=== PATIENT | male | born 1950 | race Caucasian/White ===

== ENCOUNTER 2018-12-01 10:24 | Inpatient (IN) ==
[2018-12-01] MEDS ORDERED: ASPIRIN ONE (10:41)
[2018-12-01] MEDS ORDERED: LASIX ONE (10:43)
[2018-12-01] MEDS ORDERED: ASPIRIN PO ONE (11:06)
--- NOTE | 2018-12-01 11:21 | Diag Imaging Result Doc PS360 ---
EXAM: CHEST-1 VIEW HISTORY: chest pain TECHNIQUE: Portable chest single view COMPARISON: 09/27/2018 FINDINGS: The lungs are well expanded. The heart is enlarged. There are infiltrates in the mid and lower right lung with basilar atelectasis. There are small pleural effusions. IMPRESSION: Overall worsening in the right lung infiltrates. Electronically signed by Quincy Ward 12/01/2018 11:19 AM
[2018-12-01 11:28] LABS: BASO# 0.03 X1000 (0.0-0.2); BASO% 0.4 % (0.0-0.8); EOS# 0.04 X1000 (0.0-0.7); EOS% 0.5 % (0.0-10.0); HEMATOCRIT 33.8 % (42.0-52.0); IMM GRAN# 0.02 X1000 (0.0-0.04); IMM GRAN% 0.2 % (0.0-0.5); LYMPH# 0.56 X1000 (1.2-3.4); LYMPH% 6.5 % (20.5-51.1); MCH 29.9 PG (27-31); MCHC 32.5 g/dL (33-37); MCV 91.8 FL (81-99); MONO# 0.53 X1000 (0.11-0.59); MONO% 6.2 % (1.7-9.3); MPV 9.5 FL (7.4-10.4); NEUT# 7.39 X1000 (1.4-6.5); NEUT% 86.2 % (42.2-75.2); PLT 180 X1000 (130-400); RBC 3.68 XMIL (4.7-6.1); RDW 16.8 % (11.5-14.5); WBC 8.57 X1000 (4.8-10.8)
[2018-12-01] MEDS ORDERED: VANCOMYCIN 1 GM/NS 1 GM/250 ML IVPB IV ONE (11:35)
[2018-12-01 11:37] LABS: INR 1.42; PROTIME 18.5 Seconds (11.0-16.0)
[2018-12-01 11:38] LABS: PTT 36.8 Seconds (22.3-41.8)
[2018-12-01] MEDS: LEVOPHED 8 MG in D5 1/2 NS 250 ML IV SCH (11:40)
[2018-12-01 11:48] LABS: ALB/GLOB RATIO 1.1; ALBUMIN 3.4 g/dL (3.5-5.0); CALCIUM 8.6 mg/dL (8.8-10.2); CREATININE 2.4 mg/dL (0.7-1.2); POTASSIUM 4.8 mmol/L (3.5-5.1); TOTAL BILIRUBIN 4.3 mg/dL (0.20-1.00); TOTAL PROTEIN 6.4 g/dL (6.3-8.3)
[2018-12-01] MEDS ORDERED: PRIMACOR 20 MG/D5W 100 ML 20 MG/100 ML IVPB IV SCH (12:00)
[2018-12-01 12:21] LABS: ALLEN TEST YES; BE -0.5 mmoll (-3.0-3.0); BLOOD TYPE ARTERIAL; HCO3-(ACT) 24.5 mmoll (20.0-26.0); METHB 1.2 % (0.0-1.5); O2(CT) 14.8 mL/dL (15.0-23.0); O2HB 95.2 % (95.0-99.0); PCO2(98.6) 31 mmHg (35-45); PO2(98.6) 119 mmHg (60-100); SAMPLE BLOOD; SAO2 99.2 % (95.0-100.0); THB 10.9 g/dL (11.5-17.4); pH(98.6) 7.47 (7.35-7.45)
[2018-12-01 12:23] LABS: MODALITY BI PAP
--- NOTE | 2018-12-01 12:42 | EKG Report ---
Test Performed on : 12/01/2018 10:29:02 AM Test Reason : AFIB Blood Pressure : / mmHG Vent. Rate : 107 BPM Atrial Rate : 107 BPM P-R Int : 000 ms QRS Dur : 104 ms QT Int : 292 ms P-R-T Axes : 000 108 157 degrees QTc Int : 389 ms Atrial fibrillation. with rapid ventricular response. Incomplete right bundle branch block Possible Right ventricular hypertrophy ST elevation, consider inferior injury or acute infarct ACUTE AL / STEMI Consider right ventricular involvement in acute inferior infarct Abnormal ECG When compared with ECG of 27-SEP-2018 07:05, Atrial fibrillation. has replaced Sinus rhythm. Vent. rate has increased BY 48 BPM Nonspecific T wave abnormality, worse in Anterior leads QT has shortened Unconfirmed Result
--- NOTE | 2018-12-01 12:51 | PROVIDER DOCUMENTATION ---
This chart was entered by Dasha Norton Scribe, acting as scribe for Brien Erickson MD. HPI-Chest Pain - General Chief Complaint: Chest Pain Stated Complaint: CHEST PAIN,SOB Time Seen by Provider: 12/01/18 10:25 Source: patient, family () Unable to obtain history due to:: urgency Allergies/Adverse Reactions: Patient Allergies Allergy/AdvReac Type Severity Reaction Status Date / Time metoclopramide HCl * Allergy Mild headache, Verified 09/21/18 20:50 [From Reglan] dizzines, confusion Penicillins Allergy Mild SHORTNESS Verified 09/21/18 23:32 OF BREATH Sulfa (Sulfonamide Allergy Mild NAUSEA/VOMI Verified 09/21/18 20:50 Antibiotics) TING Tetanus Vaccines and Toxoid AdvReac Severe RASH Verified 09/21/18 20:50 levofloxacin [From Levaquin] AdvReac RASH Verified 09/21/18 20:50 propofol AdvReac doesn't Verified 09/21/18 20:50 like the feeling postop Home Medications: Home Medication List Medication Instructions Recorded Confirmed Last Taken Type Escitalopram Oxalate [Lexapro] 10 mg PO QPM 04/24/15 04/08/18 04/07/18 21:00 History 10 mg Hydralazine [Apresoline] 50 mg PO BID 04/24/15 09/21/18 04/07/18 21:00 History 50 mg Isosorbide Dinitrate 40 mg PO BID 04/24/15 04/08/18 04/07/18 21:00 History 40 mg Clopidogrel Bisulfate [Plavix] 75 mg PO DIRECTED 11/23/17 04/08/18 04/03/18 08:00 History 75 mg Aspirin 81 mg PO DAILY chewtab 12/21/17 09/21/18 04/08/18 08:00 Rx Carvedilol [Coreg] 12.5 mg PO BID 04/08/18 09/21/18 04/08/18 08:00 History 12.5 mg Omeprazole [Prilosec] 20 mg PO DAILY@0700 PRN 04/08/18 04/08/18 Unknown History Acetaminophen [Tylenol] 650 mg PO Q6H PRN PRN tablet 09/27/18 Unknown Rx Albuterol 2.5MG/Ipratrop 0.5MG 3 ml INH RTQ4H neb 09/27/18 Unknown Rx [Duoneb (A & A)] Calcium Carbonate Chew [Tums] 500 mg PO BID PRN PRN tab.chew 09/27/18 Unknown Rx Clindamycin [Cleocin] 450 mg PO Q6HR capsule 09/27/18 Unknown Rx Docusate Sodium [Colace] 100 mg PO BID capsule 09/27/18 Unknown Rx Enoxaparin [Lovenox] 40 mg SUBQ Q24H syringe 09/27/18 Unknown Rx Furosemide [Lasix] 40 mg IV Q12H vial 09/27/18 Unknown Rx Menthol/Zinc Oxide Ointment 1 applic TOP BID tube 09/27/18 Unknown Rx [Calmoseptine Ointment] - History of Present Illness-CP Nature of Presenting Problem: 68 yowm presents to the ed with c/o chest pain for 3 days. pt is known by cardiology well and saw dr villasenor last week. nikolai BURGOS with cardiology is at bedside and sts pt will need to be admitted. pt is ill appearaing and speaks in 2 word sentences Location: reports: substernal Quality of Pain: reports: fullness Severity in ED: moderate Onset/Duration: 3 days ago Timing: still present, intermittent Context/Activities at Onset: reports: light activity Modifying Factors: worse with: lying down, movement Associated Symptoms: reports: fatigue, shortness of breath Nitro Today/Relief: no nitro taken today Aspirin Treatment Today: 325 mg x 1, provided by ED Prior Chest Pain/Cardiac Workup: reports: other (is well known by cardiology) Similar Symptoms Previously?: Yes Recently Seen Here or By Another Healthcare Provider: Yes Review of Systems - Adult - REVIEW OF SYSTEMS - ADULT ROS:: limited per condition Constitutional: reports: weight gain (65lb weight gain since october 29). denies: chills, fever Eyes: reports: no symptoms reported Ears, Nose, Mouth & Throat: reports: no symptoms reported Cardiovascular: reports: see HPI, chest pain, edema, orthopnea. denies: syncope Respiratory: reports: see HPI, chronic cough, dyspnea on exertion, shortness of breath, wheezing Gastrointestinal: reports: see HPI. denies: abdominal pain, diarrhea, nausea, vomiting Genitourinary: reports: no symptoms reported Musculoskeletal: reports: no symptoms reported Integumentary: reports: see HPI, skin sores/ulcer Neurological: denies: dizziness/vertigo, headache/migraines, slurred speech, syncope, tremors Psychiatric: reports: no symptoms reported Endocrine: reports: no symptoms reported Hematologic/Lymphatic: reports: see HPI, easy bruising Allergic/Immunologic: reports: no symptoms reported All Other Systems: Reviewed and Negative Past History - Adult - PAST MEDICAL HISTORY-ADULT Review of Records: reports: Old Records Reviewed, Nursing Assessment Review, Medications Reviewed, Social history reviewed & non-contributory. Major Childhood Illnesses: reports: denies history Cardiovascular: reports: CAD, CHF, HTN, PR Respiratory: reports: COPD, pneumonia, sleep apnea Gastrointestinal: reports: denies history Genitourinary: reports: kidney disease Musculoskeletal: reports: chronic pain Hand Dominance: Right Handed Neurological: reports: denies history Psychiatric: reports: depression Endocrine/Immune: reports: denies history Other Conditions: reports: denies history - PRIOR SURGERIES/PROCEDURES Surgical/Procedure History: reports: hernia repair, joint replacement, other (naal sx) - IMMUNIZATION STATUS Childhood Immunizations: See Nurse Assessment Flu Vaccine: See Nurse Assessment - FAMILY HISTORY Family History: reviewed, not pertinent - SOCIAL HISTORY Smoking: quit greater than 1 year Substance Use: denies Living Situation: family Physical Exam-General - PHYSICAL EXAM-ADULT Initial Vital Signs Reviewed: Yes - CONSTITUTIONAL General Appearance: alert, severe distress, obese, anxious. negative: appears well - EYES Eyes: PERRL/EOMI - HEAD, EARS, NOSE, MOUTH & THROAT HENMT: moist mucous membranes, dental decay - NECK Neck: full range of motion, normal inspection - RESPIRATORY Respiratory: respiratory distress, wheezing, increased rate (26). negative: rales, rhonchi, stridor - CARDIOVASCULAR Cardiovascular: tachycardia, irregularly irregular - GASTROINTESTINAL (ABDOMEN) Abdominal Exam: soft, abnormal bowel sounds, distended - MUSCULOSKELETAL Back Exam: normal inspection Extremity: no calf tenderness, normal capillary refill, pelvis stable, erythema (abdomen and BLE), swelling (BLE edema), tenderness - SKIN Integumentary: warm/dry, erythema (abdomen and BLE), pallor - NEUROLOGIC Neurologic: grossly normal - PSYCHIATRIC Psych/Mental Status: normal thought content, normal thought process, oriented x 3, anxious - HEART Score HEART Score: History: Highly Suspicious HEART Score: ECG: Non-Specific Repolarization Disturbance/LBBB/PM HEART Score: Age: > or = 65 Years HEART Score: Risk Factors for Atherosclerotic Disease: 1 or 2 Risk Factors HEART Score: Troponin: > or = 3x Normal Limit Total HEART Score:: 8 Progress - PLAN OF CARE/RESULTS Progress/Plan/Lab Results: Vital Signs - 8 hr 12/01/18 11:51 12/01/18 12:22 Pulse Rate 127 H Respiratory Rate 20 Blood Pressure 105/56 O2 Sat by Pulse Oximetry 96 99 Laboratory Results - last 24 hr 12/01/18 12/01/18 12/01/18 10:54 10:54 10:54 WBC 8.57 RBC 3.68 L Hgb 11.0 L Hct 33.8 L MCV 91.8 MCH 29.9 MCHC 32.5 L RDW Std Deviation 16.8 H Plt Count 180 MPV 9.5 Immature Gran % (Auto) 0.2 Neut % (Auto) 86.2 H Lymph % (Auto) 6.5 L [place] % (Auto) 6.2 Eos % (Auto) 0.5 Baso % (Auto) 0.4 Immature Gran # (Auto) 0.02 Neut # (Auto) 7.39 H Lymph # (Auto) 0.56 L [place] # (Auto) 0.53 Eos # (Auto) 0.04 Baso # (Auto) 0.03 PT INR PTT (Actin FS) Specimen Type Sample Site pH pCO2 pO2 HCO3 Base Excess Oxyhemoglobin ABG O2 Sat (Calculated) ABG O2 Saturation ABG Carboxyhemoglobin ABG Methemoglobin Len Test A-a O2 Difference Total Hemoglobin Lactate Blood Gas Modality FiO2 % Inspiratory BiPAP Expiratory BiPAP Sodium 134 L Potassium 4.8 Chloride 96 L Carbon Dioxide 22 L Anion Gap 16 BUN 56 H Creatinine 2.4 H Estimated GFR/1.73 m2 27 BUN/Creatinine Ratio 23 Glucose 107 H Calculated Osmolality 284 Calcium 8.6 L Total Bilirubin 4.30 H AST 19 ALT 8 L Alkaline Phosphatase 200 H Creatine Kinase 59 Troponin T Vno-O-Grdxolsmfhy Pept 12147 H Total Protein 6.4 Albumin 3.4 L Globulin 3.0 Albumin/Globulin Ratio 1.1 12/01/18 12/01/18 12/01/18 10:54 10:54 12:13 WBC RBC Hgb Hct MCV MCH MCHC RDW Std Deviation Plt Count MPV Immature Gran % (Auto) Neut % (Auto) Lymph % (Auto) [place] % (Auto) Eos % (Auto) Baso % (Auto) Immature Gran # (Auto) Neut # (Auto) Lymph # (Auto) [place] # (Auto) Eos # (Auto) Baso # (Auto) PT 18.5 H INR 1.42 PTT (Actin FS) 36.8 Specimen Type ARTERIAL Sample Site R RADIAL pH 7.47 H pCO2 31 L pO2 119 H HCO3 24.5 Base Excess -0.5 Oxyhemoglobin 95.2 ABG O2 Sat (Calculated) 14.8 L ABG O2 Saturation 99.2 ABG Carboxyhemoglobin 2.90 H ABG Methemoglobin 1.2 Len Test YES A-a O2 Difference 127.0 Total Hemoglobin 10.9 L Lactate 1.70 Blood Gas Modality BI PAP FiO2 % 40.0 Inspiratory BiPAP 20.0 Expiratory BiPAP 6.0 Sodium Potassium Chloride Carbon Dioxide Anion Gap BUN Creatinine Estimated GFR/1.73 m2 BUN/Creatinine Ratio Glucose Calculated Osmolality Calcium Total Bilirubin AST ALT Alkaline Phosphatase Creatine Kinase Troponin T 0.208 H Vnp-K-Sdnbzzkpwnk Pept Total Protein Albumin Globulin Albumin/Globulin Ratio Orders Category Date Time Status Admit - [facility] Routine AdmDCTranf 12/01/18 12:32 Active Activity - Strict Bedrest ORDERED Care 12/01/18 12:32 Active Daily Weights 0500 Care 12/01/18 12:35 Active FSBS/Accucheck Result AC + HS Care 12/01/18 12:42 Active Dejesus Cath Insertion ORDERED Care 12/01/18 11:23 Active Intake and Output-Strict ORDERED Care 12/01/18 12:32 Active Intake and Output-Strict ORDERED Care 12/01/18 12:35 Active Nursing- MD Consult Request ROUTINE Care 12/01/18 11:06 Active Update & Confirm Home Medicati ROUTINE Care 12/01/18 12:43 Active Vital Signs Order Q 8-HR ASSESS Care 12/01/18 12:32 Active Z-Document. for Tele Applied ORDERED Care 12/01/18 12:32 Active MD [Physician/Provider Consults] Routine Cons 12/01/18 11:01 Ordered CHEST-1 VIEW [RAD] Stat Exams 12/01/18 11:03 Completed ABG [RESP] Routine Lab 12/01/18 12:13 Completed BASIC METABOLIC PANEL [CHEM] Routine Lab 12/02/18 06:00 Ordered BLOOD CULTURE [BLDCUL] Stat Lab 12/01/18 12:17 Results BNP [PRO B-NATRIURETIC PEPTIDE] Stat Lab 12/01/18 10:54 Completed CBC WITH DIFF [HEME] DAILY Lab 12/02/18 06:00 Ordered CBC WITH DIFF [HEME] DAILY Lab 12/03/18 06:00 Ordered CBC WITH DIFF [HEME] DAILY Lab 12/04/18 06:00 Ordered CBC WITH DIFF [HEME] Stat Lab 12/01/18 10:54 Completed CK PROFILE [SP CHEM] Stat Lab 12/01/18 10:54 Completed COMPREHENSIVE METABOLIC PANEL [CHEM] DAILY Lab 12/02/18 06:00 Ordered COMPREHENSIVE METABOLIC PANEL [CHEM] DAILY Lab 12/03/18 06:00 Ordered COMPREHENSIVE METABOLIC PANEL [CHEM] DAILY Lab 12/04/18 06:00 Ordered COMPREHENSIVE METABOLIC PANEL [CHEM] Stat Lab 12/01/18 10:54 Completed MAGNESIUM [CHEM] Routine Lab 12/02/18 06:00 Ordered PROTIME WITH INR [COAG] Stat Lab 12/01/18 10:54 Completed PTT [COAG] Stat Lab 12/01/18 10:54 Completed TROPONIN T Stat Lab 12/01/18 10:54 Completed Aspirin Med 12/01/18 10:41 Discontinued 325 mg .ROUTE .STK-MED ONE Aspirin Med 12/01/18 11:06 Discontinued 325 mg PO NOW ONE Dextrose 5%-0.45% NaCl Inj [D5 1/2 Ns] 250 ml Med 12/01/18 11:15 Active Norepinephrine [Levophed] 8 mg IV As Directed mls/hr Furosemide [Lasix] Med 12/01/18 10:43 Discontinued 100 mg .ROUTE .STK-MED ONE Furosemide [Lasix] Med 12/01/18 14:00 Active 60 mg IV Q12H Insulin Lispro [Humalog] Med 12/01/18 16:00 Active See Protocol SUBQ 0700,1100,1600,2100 Milrinone 20 mg/D5w [Primacor 20 mg/D5w 100 ml] Med 12/01/18 12:00 Active 20 mg in 100 ml IV As Directed mls/hr Pantoprazole [Protonix] Med 12/01/18 12:45 Active 40 mg IV Q12H Sodium Chloride 0.9% Med 12/01/18 12:45 Active 10 ml INJ DIRECTED Vancomycin 1 gm/Ns Med 12/01/18 11:35 Discontinued 1 gm in 250 ml IV NOW BIPAP Stat Oth 12/01/18 11:02 Active Telemetry [OM.EQ] Routine Oth 12/01/18 12:32 Active EKG [EKG] DAILY Ther 12/02/18 06:00 Ordered EKG [EKG] DAILY Ther 12/03/18 06:00 Ordered EKG [EKG] DAILY Ther 12/04/18 06:00 Ordered EKG [EKG] Stat Ther 12/01/18 10:25 Draft Result Diagrams: 12/01/18 10:54 12/01/18 10:54 - REASSESSMENT Reassessment #1 Time Reassessed: 11:15 (cardiology wants him to be admitted) Status: unchanged Reassessment #2 Time Reassessed: 11:49 Status: unchanged Reassessment Comment: dr at bedside - EKG 1 Time of EKG reading by physician:: 10:29 EKG Read and Signed by:: Brien Erickson EKG Interpretation (*Must complete 3 of following elements*): Abnormal Rate: 107 Rhythm: afib with rvr [place]: normal QRS: RBB (incomplete), other (possible right ventricular hypertrophy) TN Interval: normal ST Wave: non-specific ST changes Comments: per dr erickson no stemi or acute mi at this time 2 Time of EKG reading by physician:: 15:27 EKG Read and Signed by:: Brien Erickson EKG Interpretation (*Must complete 3 of following elements*): Abnormal Rate: 138 Rhythm: undetermined rhythm [place]: normal QRS: other (RVH with repolarization abnormality) ST Wave: elevated Prior EKG Comparison: changes noted Comments: acute PR/Stemi - XRAY 1 XRAY: Bilateral XRAY Study: Chest Impression: See EMR Report (EXAM: CHEST-1 VIEW HISTORY: chest pain TECHNIQUE: Portable chest single view COMPARISON: 09/27/2018 FINDINGS: The lungs are well expanded. The heart is enlarged. There are infiltrates in the mid and lower right lung with basilar atelectasis. There are small pleural effusions. IMPRESSION: Overall worsening in the right lung infiltrates. Electronically signed by Quincy Ward 12/01/2018 11:19 AM 12/01/18 1112 Interpreting Physician: Quincy Ward MD Dictated Date/Time: 12/01/18 1118 cc: Brien Erickson MD; Christiano Nguyen MD) - CONSULTS/PCP/HOSPITALIST Notification #1 *Consult/PCP/Hospitalist*: PA for cardiology at bedside Time Discussed: 11:18 Reason/Comments: will consult Consult Disposition: Will see in ED #2 Consult: hospitalist dr card Time Discussed: 11:48 Consult Disposition: Admit #3 Consult: speaking with nikolai AVERY with cardiology Time Discussed: 15:40 (put in a consult and we will see it on the floor per nikolai AVERY) Reason/Comments: phone cosult Departure - Departure Date of Disposition Decision: 12/01/18 Time of Disposition Decision: 11:44 DIAGNOSIS: NSTEMI (non-ST elevated myocardial infarction) Chest pain Qualifiers: Chest pain type: unspecified Qualified Code(s): R07.9 - Chest pain, unspecified CHF (congestive heart failure) Qualifiers: Heart failure type: other Qualified Code(s): I50.9 - Heart failure, unspecified A-fib Qualifiers: Atrial fibrillation type: unspecified Qualified Code(s): I48.91 - Unspecified atrial fibrillation Hypotension Qualifiers: Hypotension type: other hypotension type Qualified Code(s): I95.89 - Other hypotension Ascites Qualifiers: Ascites type: other type Qualified Code(s): R18.8 - Other ascites Disposition: ADMITTED INPATIENT 09 Certified Medical Emergency: Emergent Condition: Serious - Critical Care Note This patient required my direct & personal management of CC.: Yes Total Time (mins): 42 Critical Care Statement: This patient required my direct personal management to treat or rule out processes, the absence of which, could potentiallly result in sudden, clinically significant life or limb threatening deterioration. Attestation - Physician/ ADEN Attestation Patient care was provided by Advanced Practice Provider:: No The physician spent face to face time with patient:: Yes Advanced Practice Provider documentation review:: Supervising physician onsite and consulted in the evaluation and care of this patient. The physician did have a face to face encounter with the patient. This chart was documented by the indicated scribe, (Dasha Norton Scribe) and accurately reflects the services I performed and decisions made by me, Brien Erickson MD, as attested by the provider's signature.
[2018-12-01] MEDS: PROTONIX IV SCH (14:53)
--- NOTE | 2018-12-01 14:54 | CARDIOLOGY CONSULTATION ---
DATE: 12/01/2018 IMPRESSION: 1. Acute on chronic biventricular congestive heart failure with associated anasarca and significant ascites. 2. Mitral valve disorder with history of transcutaneous mitral valve procedure with placement of a mitral valve bioprosthesis with 29 mm MIGUEL S3 valve. 3. Atrial fibrillation has developed since last clinic visit and compounds congestive heart failure. 4. Ischemic cardiomyopathy with left ventricular ejection fraction 30% to 35% by transthoracic echocardiography, 10/20/2018. 5. Atherosclerotic coronary disease, previous mitral valve replacement with 29 mm pericardial valve in 2009. The patient has more recently had transcutaneous mitral valve replacement inside his previously placed mitral valve bioprosthesis with MIGUEL 29 mm valve, performed 10/19/2018. 6. Moderate aortic stenosis with trace aortic regurgitation. 7. Moderate pulmonary hypertension. 8. Obstructive sleep apnea. 9. Obesity. 10. Hypertension. 11. Diabetes mellitus, type 2. 12. Hyperlipidemia. 13. Acute on chronic kidney disease. 14. Cirrhosis. RECOMMENDATIONS: 1. Given low blood pressure, initiate intravenous pressors with Levophed and add milrinone for inotrope. 2. Diurese with intravenous Lasix. 3. Anticipate he will benefit from paracentesis. Eliquis to be held. 4. Atrial fibrillation, pending tendency for congestive heart failure. As patient improves, we will consider antiarrhythmic therapy after discussing his care with Dr. Fleming and consider DOYLE cardioversion at some point during his hospital stay. HISTORY: This 68-year-old white male with past history of biventricular heart failure, mitral valve disorder, ischemic cardiomyopathy, obstructive sleep apnea, obesity, chronic kidney disease, and atrial arrhythmias presented to the emergency room with progressive edema/anasarca and dyspnea in setting of failure of outpatient change in diuretic regimen to improve his recurrent congestive heart failure. He has a long and complicated cardiovascular history. He is status post mitral valve repair and replacement in 2009. He suffered acute [place] postoperatively with occluded right coronary artery. He had emergent stent to proximal right coronary artery. He has had ischemic cardiomyopathy. He has also had atrial arrhythmias and status post previous cardioversion of atrial flutter to sinus rhythm. He had deterioration of his mitral valve bioprosthesis and in October of this year, had transcutaneous mitral valve replacement inside his previously placed mitral valve bioprosthesis with a MIGUEL 29 mm valve. He also had cardioversion of atrial flutter not long thereafter. He also had angioplasty/stenting of distal left anterior descending coronary artery. He has moderate stenosis and trace aortic insufficiency as well. He also has moderate to severe pulmonary hypertension. He had rather intense and aggressive treatment of his congestive heart failure and has required paracentesis. He got out of the hospital in early October and was doing fairly well at that time. However, he has had progressive reemergence of weight gain with edema and increasing abdominal girth. He was seen a week ago in clinic with signs of re-emergence of significant congestive heart failure despite his current regimen. Diuretic therapy was altered in an effort to improve diuresis. He was in sinus rhythm at that time. Despite this, he has had further progression of edema and increasing abdominal girth as well as dyspnea prompting him to come in today. Blood pressure was low with systolic blood pressure 81. He manifest anasarca and marked jugular venous distention. He is now in atrial fibrillation. There has been no chest pain nor angina. He has been compliant with CPAP. PAST MEDICAL HISTORY: 1. Mitral valve disorder with previous mitral valve replacement in 2009 and later transcutaneous mitral valve replacement earlier this year. 2. Ischemic cardiomyopathy with left ventricular ejection fraction of 30% to 35%. 3. Chronic biventricular congestive heart failure, both systolic and diastolic. 4. Moderate to severe pulmonary hypertension. 5. Chronic obstructive pulmonary disease. 6. Obesity, morbid. 7. Obstructive sleep apnea. 8. Atrial arrhythmias. Patient is status post previous cardioversion of atrial flutter, 11/03/2018. 9. Atherosclerotic coronary disease with previous angioplasty/stenting of proximal right coronary artery and angioplasty/stenting of distal left anterior descending coronary artery. 10. Moderate aortic stenosis with trace aortic regurgitation. 11. Previous DVT and chronic venous insufficiency. 12. Hypertension. 13. Hyperlipidemia. 14. Type 2 diabetes mellitus. 15. Chronic kidney disease. 16. Cirrhosis. 17. Non-Hodgkin's lymphoma. 18. Depression. ALLERGIES: He is allergic or intolerant to metoclopramide and penicillins, among others. MEDICATIONS PRIOR TO ADMISSION: As listed. SOCIAL HISTORY: He is . He does not smoke. He does not use alcohol. FAMILY HISTORY: Positive for coronary disease, hypertension, and type 2 diabetes mellitus. REVIEW OF SYSTEMS: Pulmonary: Noteworthy for dyspnea. Gastrointestinal: Noteworthy for anorexia for the past 5 days or so. He has also had marked increase in abdominal girth. Constitutional: Noteworthy for significant weight gain since early October of at least 50 pounds. Remainder of the review of systems negative/noncontributory with 14 total systems reviewed. PHYSICAL EXAMINATION: General: This is an obese older white male, in no distress, on BiPAP. Vital signs: Blood pressure initially 81/60, heart rate 100-110 with ECG monitor showing atrial fibrillation. HEENT: Extraocular movements intact. Mucous membranes moist. Neck: Supple with marked jugular venous distention consistent with elevated central venous pressure. Chest: Auscultation of the chest reveals coarse breath sounds anteriorly. There are diminished breath sounds at the base, more so on the right base. Cardiac: Exam reveals an irregular rate and rhythm without appreciable murmur or gallop. Abdomen: Markedly distended with positive fluid wave. Extremities: Demonstrate 4+ edema, consistent with anasarca. Neurologic: Exam reveals him to be alert and fully oriented. Speech is fluent, and he moves all 4 extremities equally well. PERTINENT DATA: A 12-lead EKG demonstrates atrial fibrillation with ventricular response of 107 beats per minute, incomplete right bundle branch block, probable right ventricular hypertrophy, and nonspecific ST and T-wave abnormality. LABORATORY DATA: Includes a white blood cell count 8.57, hematocrit 33.8, hemoglobin 11.0, platelet count 180,000. Pro-time 18.5, INR 1.42, PTT 36.8. Sodium 134, potassium 4.8, chloride 96, carbon dioxide 22, BUN 56, creatinine 2.4, glucose 107, total bilirubin 4.3, AST 19, ALT 8, alkaline phosphatase 200. CPK 59, troponin T 0.2. Pro B-natriuretic peptide level 25,176. Albumin 3.4. cc: Santo Horton MD
[2018-12-01] MEDS: LASIX IV SCH (14:56)
[2018-12-01] MEDS: HUMALOG SUBQ SCH ×2 (16:00→20:33)
--- NOTE | 2018-12-01 18:42 | HISTORY AND PHYSICAL ---
CHIEF COMPLAINT: Shortness of breath. HISTORY OF PRESENT ILLNESS: This is a 68-year-old gentleman, with a history of biventricular heart failure, mitral valve disorder, ischemic cardiomyopathy, obstructive sleep apnea, morbid obesity, and chronic kidney disease, who presents to the emergency room with increasing edema/anasarca and shortness of breath, despite outpatient treatment. He has a history of CAD, having a stent to his right coronary artery, ischemic cardiomyopathy with an EF of 30 to 35 percent. He does have mitral valve disorder, having a mitral valve replacement in 2009, with later transcutaneous mitral valve replacement in early 2018. He does have a history of pulmonary hypertension. He has required paracentesis secondary to his congestive heart failure in the past. He was evaluated by Cardiology in early October. At that time, he had a 10 pound weight gain. Medications were readjusted and he was doing fairly well. A week ago, he was re-evaluated in Cardiology Clinic and found to have a 60 pound weight gain in 4 weeks. Medications were readjusted at that time. Despite that, he has had further progression of his dyspnea, prompting him to present to the emergency room. On arrival to the emergency room, he had a systolic blood pressure of 81. He was found to be in atrial fibrillation, which is a new diagnosis for him. He was evaluated by Dr. Horton in the emergency room as well as our service. PAST MEDICAL HISTORY: 1. Mitral valve disorder, undergoing mitral valve replacement in 2009, and transcutaneous mitral valve replacement in 2019. 2. Ischemic cardiomyopathy, with a left ventricular ejection fraction of 30 to 35 percent. 3. Chronic biventricular congestive heart failure. 4. Moderate to severe pulmonary hypertension. 5. Chronic obstructive pulmonary disease. 6. Obstructive sleep apnea. 7. Morbid obesity. 8. Atrial arrhythmias, atrial flutter, status post cardioversion on 11/03/2018. 9. Coronary artery disease, status post angioplasty and stenting of the right coronary and distal LAD. 10. Moderate aortic stenosis with trace aortic regurgitation. 11. Previous DVT with chronic venous insufficiency. 12. Hypertension. 13. Hyperlipidemia. 14. Diabetes mellitus type 2. 15. Chronic kidney disease stage 3 to 4. 16. Cirrhosis. 17. Non-Hodgkin's lymphoma. 18. History of intracoronary thrombus in 2010. PAST SURGICAL HISTORY: 1. Mitral valve replacement, 2009. 2. Transcutaneous mitral valve replacement, 2019. ALLERGIES: He is intolerant to Reglan and penicillin, sulfa, Levaquin, propofol, and tetanus. HOME MEDICATIONS: A list will be obtained by the nursing staff. Once verified, we will review and restart as appropriate. REVIEW OF SYSTEMS: Discussed with the patient with pertinent positives as stated in the History of Present Illness. He denied any syncope or dizziness, any chest pain, a productive cough, any nausea, vomiting, diarrhea, constipation, black or bloody vomitus or stools, any hematuria, dysuria, frequency, urgency. PHYSICAL EXAMINATION: GENERAL: This is a morbidly obese, 68-year-old gentleman who is sitting up in the bed on BiPAP. VITAL SIGNS: Blood pressure 105/56 with a heart rate of 127, respirations are 20, oxygen saturation is 96% on BiPAP at 40%. EYES: Pupils equal, round, and react to light. Extraocular movements are intact. Sclerae are anicteric. HEAD: Normocephalic, atraumatic. ENT: Mucous membranes are moist. NECK: Supple with JVD. CARDIAC: irregularly irregular rate and rhythm without appreciable murmur. He does have bilateral 4+ lower extremity edema. PULMONARY: Breath sounds are diminished throughout and coarse. At present, he has no increased work of breathing. Chest rises and falls symmetrically with respiration. GASTROINTESTINAL: Abdomen is distended, is large. He does have a positive fluid wave. NEUROLOGIC: He is alert and oriented x3. LABS: WBC is 8.5 with hemoglobin 11, hematocrit 33, and platelets of 180,000. Sodium is 134, potassium 4.8, BUN 56, creatinine 2.4, with a glucose of 121. Troponin is 0.208 with a proBNP of 25,176. ABGs: pH is 7.4 with pCO2 31, pO2 of 119, and bicarbonate of 24.5. Blood cultures are pending. Chest x-ray revealed increasing right lung infiltrates. ASSESSMENT: 1. Acute on chronic biventricular congestive heart failure. 2. Anasarca with significant ascites. 3. Atrial fibrillation, new onset. 4. Ischemic cardiomyopathy, with a left ventricular ejection fraction 30 to 35 percent on 10/20/2018. 5. Mitral valve disorder, with a history of transcutaneous mitral valve placement in 2019. 6. Coronary artery disease, status post stents to right coronary artery and left anterior descending. 7. Moderate aortic stenosis with trace aortic regurgitation. 8. Obstructive sleep apnea. 9. Moderate pulmonary hypertension. 10. Diabetes mellitus type 2. 11. Morbid obesity. 12. Acute on chronic kidney disease, stage 3 to 4. PLAN: 1. The patient will be admitted to ICU. 2. We will continue BiPAP as needed. 3. We will continue with diuresis with intravenous Lasix. 4. Cardiology has started Levophed and Milrinone. 5. We will hold his Eliquis as he will likely need a paracentesis. 6. We will check a CBC, CMP, magnesium, and phosphorus in the morning. 7. He will be placed on patterned blood glucose with sliding scale insulin. 8. We will consult Dr. Villela, Nephrology, for medical management. 9. Daily weights and strict inputs and outputs. 10. We will place a Dejesus catheter to assure accurate input/output. 11. Further treatments pending hospital course. Dictated by TATYANA Lynch for Jose D Paige MD This chart was documented by, TATYANA Lynch and accurately reflects the services performed, treatment plan and medical decisions as attested by the providers signature Jose D Paige MD. cc: TATYANA Lynch MD
[2018-12-02] MEDS: LASIX IV SCH ×3 (03:26→18:23)
[2018-12-02] MEDS: PROTONIX IV SCH ×2 (03:27→15:30)
[2018-12-02 06:59] LABS: BASO# 0.03 X1000 (0.0-0.2); BASO% 0.3 % (0.0-0.8); EOS# 0.19 X1000 (0.0-0.7); EOS% 1.9 % (0.0-10.0); HEMATOCRIT 32.8 % (42.0-52.0); HEMOGLOBIN 10.6 g/dL (14.0-18.0); IMM GRAN# 0.02 X1000 (0.0-0.04); IMM GRAN% 0.2 % (0.0-0.5); LYMPH# 0.27 X1000 (1.2-3.4); LYMPH% 2.7 % (20.5-51.1); MCH 29.7 PG (27-31); MCHC 32.3 g/dL (33-37); MCV 91.9 FL (81-99); MONO# 0.89 X1000 (0.11-0.59); MONO% 8.8 % (1.7-9.3); MPV 9.6 FL (7.4-10.4); NEUT% 86.1 % (42.2-75.2); PLT 190 X1000 (130-400); RBC 3.57 XMIL (4.7-6.1); RDW 16.7 % (11.5-14.5)
[2018-12-02] MEDS: HUMALOG SUBQ SCH ×4 (07:00→20:53)
[2018-12-02 07:23] LABS: LYMPHS 6 % (21-51); MONO 6 % (1-9); SEGS 88 % (42-75)
[2018-12-02 07:25] LABS: ALB/GLOB RATIO 1.1; ALBUMIN 3.1 g/dL (3.5-5.0); CALCIUM 8.5 mg/dL (8.8-10.2); CREATININE 2.2 mg/dL (0.7-1.2); MAGNESIUM 2.3 mg/dL (1.5-2.7); POTASSIUM 4.7 mmol/L (3.5-5.1); TOTAL BILIRUBIN 4.41 mg/dL (0.20-1.00); TOTAL PROTEIN 5.9 g/dL (6.3-8.3)
--- NOTE | 2018-12-02 07:32 | EKG Report ---
Test Performed on : 12/02/2018 06:53:21 AM Test Reason : afib Blood Pressure : / mmHG Vent. Rate : 112 BPM Atrial Rate : 112 BPM P-R Int : 000 ms QRS Dur : 096 ms QT Int : 324 ms P-R-T Axes : 000 105 143 degrees QTc Int : 442 ms Atrial fibrillation. with rapid ventricular response. with premature ventricular or aberrantly conduc mike complexes. Incomplete right bundle branch block Possible Right ventricular hypertrophy Nonspecific ST and T wave abnormality Abnormal ECG When compared with ECG of 02-DEC-2018 06:29, (Unconfirmed) Previous ECG has undetermined rhythm, needs review Confirmed by Shell LIVINGSTON, Matt ([id number]) on 12/02/2018 8:54:18 AM
--- NOTE | 2018-12-02 07:35 | EKG Report ---
Test Performed on : 12/02/2018 03:13:11 AM Test Reason : afib Blood Pressure : / mmHG Vent. Rate : 115 BPM Atrial Rate : 125 BPM P-R Int : 000 ms QRS Dur : 094 ms QT Int : 286 ms P-R-T Axes : 000 089 128 degrees QTc Int : 395 ms Atrial fibrillation. with rapid ventricular response. with premature ventricular or aberrantly conduc mike complexes. Low voltage QRS Incomplete right bundle branch block Nonspecific ST and T wave abnormality Abnormal ECG When compared with ECG of 01-DEC-2018 15:27, (Unconfirmed) Significant changes have occurred Unconfirmed Result
--- NOTE | 2018-12-02 08:52 | EKG Report ---
Test Performed on : 12/01/2018 3:27:13 PM Test Reason : ED. NO EKG ORDER FOR MUSE Blood Pressure : / mmHG Vent. Rate : 138 BPM Atrial Rate : 122 BPM P-R Int : 104 ms QRS Dur : 076 ms QT Int : 368 ms P-R-T Axes : 000 112 128 degrees QTc Int : 557 ms Undetermined rhythm Right ventricular hypertrophy with repolarization abnormality ST elevation, consider inferior injury or acute infarct ACUTE MD / STEMI Consider right ventricular involvement in acute inferior infarct Abnormal ECG When compared with ECG of 01-DEC-2018 10:29, (Unconfirmed) Current undetermined rhythm precludes rhythm comparison, needs review Incomplete right bundle branch block is no longer present Unconfirmed Result
--- NOTE | 2018-12-02 10:58 | PROGRESS NOTE ---
DATE: 12/02/2018 SUBJECTIVE: This morning Mr. Gilbert refers to be feeling slightly okay. He is still on the BiPAP. Breathing is getting better. Vitals seems to be a lot better. Blood pressure is now up on the pressors. OBJECTIVE: Vital Signs: Blood pressure is 104/61, pulse 87, respirations 22, and temperature 98 degrees. General: Mr. Gilbert is a 68-year-old morbidly obese male. He is in bed. He is still on the BiPAP. HEENT: Mucosa is pink and moist. Anicteric. Acyanotic. Neck: Supple. Chest: Air entry is bilaterally reduced. There are still some crackles posteriorly. Cardiovascular: Irregularly irregular. Abdomen: Distended with fluid thrill. Extremities: About 4+ pedal edema. There are some chronic changes on the skin consistent with congestive dermatopathy. Neurologic: The patient is awake, alert, and oriented. LABORATORY: Current lab work: WBC is 10.1, hemoglobin is 10.6, and platelet count 190,000. Chemistry is also reviewed. Creatinine is down to 2.2. The rest of chemistry is unremarkable. A chest x-ray done yesterday shows overall worsening in lung infiltrates. There are also small pleural effusions. CURRENT MEDICATIONS: All been reviewed. Patient is on Lasix 60 mg IV q.12. Insulin sliding scale. Norepinephrine and milrinone have just been discontinued this morning. ASSESSMENT: 1. Anasarca secondary to congestive heart failure. 2. Congestive heart failure with ejection fraction of 30% to 35%. 3. Severe ischemic cardiomyopathy. 4. Valvulopathy with mitral valve replacement. 5. Obesity hypoventilation syndrome associated with also obstructive sleep apnea. 6. Diabetes mellitus. We will continue with insulin regimen. 7. Acute on chronic renal failure. Creatinine continues to be on the downward trend. 2.2 seems to be fairly where he normally is. 8. Massive ascites likely due to cardiac cirrhosis. Patient has had multiple taps in the past. We will get IR to do a paracenteses and send fluid for analysis. cc: Jose D Paige MD MTDD
--- NOTE | 2018-12-02 12:43 | Diag Imaging Result Doc PS360 ---
EXAM: US ABD PARACENTESIS W S/I 12/02/2018 HISTORY: ascites TECHNIQUE: Ultrasound-guided paracentesis COMMENT: The risks and benefits of the procedure including the possibility of bleeding, infection, reaction to lidocaine, or inadvertent puncture of hollow viscus was discussed with the patient and he agreed to the procedure. Following sterile preparation of the skin anterolaterally in the lower right abdomen, and administration 1% lidocaine to the skin and deeper soft tissues, the paracentesis catheter was placed and subsequently 7.5 L of milky yellow fluid was drained. There are no immediate complications. The patient tolerated the procedure well. The fluid was sent in its entirety to the laboratory. IMPRESSION: Successful ultrasound-guided paracentesis. Electronically signed by Gilbert Carrillo 12/02/2018 12:40 PM
[2018-12-02 13:06] LABS: ALBUMIN BODY FLUID 1.3 g/dL; AMYLASE BODY FLUID 18 U/L; TOTAL PROT BODY FLUID 2.8 g/dL
[2018-12-02 13:49] LABS: BODY FLUID SOURCE PERITONEAL FLUID; MONOS 7 %; POLYS 93 %; WBC BF 8915 /cumm
[2018-12-02] MEDS ORDERED: ROCEPHIN 2 GM in NS 50 ML IV ONE (14:05)
[2018-12-02] MEDS: LEVOPHED 8 MG in D5 1/2 NS 250 ML IV SCH (14:25)
--- NOTE | 2018-12-02 15:27 | Diag Imaging Result Doc PS360 ---
CT ABDOMEN/PELVIS W/O CONTRAST - 12/02/2018 INDICATION: peritonitis COMPARISON: 04/21/2018 FINDINGS: There is severe cardiomegaly. There appears to be a mitral valve replacement. There are trace pleural effusions. There is some nonspecific dependent atelectasis or infiltrate bilaterally. The liver has a slightly irregular contour which may indicate cirrhosis. Spleen size is borderline measuring about 14 cm. There is severe body wall edema. No radiodense renal stones. No hydronephrosis or hydroureter. There is a minimal amount of residual ascites. There is mild rectal stool impaction. There are moderate degenerative changes of the spine. No acute or suspicious bony lesion. IMPRESSION: Probable cirrhosis. Splenomegaly. Severe body wall edema. Trace residual ascites. Mild rectal stool impaction. This exam was performed using automated exposure control, adjustment of mA or kV according to patient size, and/or use of iterative reconstruction technique Electronically signed by Duane Ty 12/02/2018 3:25 PM
[2018-12-02] MEDS: TYLENOL PO PRN (15:31)
--- NOTE | 2018-12-02 15:41 | NEPHROLOGY CONSULTATION ---
DATE: 12/02/2018 REASON FOR ADMISSION: Increased work of breathing. REASON FOR CONSULTATION: Acute kidney injury on chronic kidney disease stage IV associated with fluid volume overload. HISTORY OF PRESENT ILLNESS: Mr. Shelby is a 68-year-old white male, who is known to our services for recent hospitalizations with fluid volume overload. He is known to have chronic kidney disease stage IV. He is also known to have congestive heart failure. The patient is morbidly obese, presented to [facility] Emergency Department with increased edema, anasarca, and increased work of breathing. He states that he has been monitoring his fluid volume intake. He has been taking his Lasix as directed. He is known to have severe ischemic cardiomyopathy with a left ejection fraction of 30 to 35 percent, last documented. He has known pulmonary hypertension. He has required paracentesis secondary to congestive heart failure in the past. He was seen by Cardiology in early October. At that time, he was 10 pound weight gain, but had been doing fairly stable. Subsequently, he was seen a week ago and was re-evaluated and, at the cardiology clinic, he was found to be 60 pounds weight gain in 4 weeks. His medications were readjusted. He continued with progressive dyspnea, prompting him to come to the emergency department for further monitoring evaluation. Upon arrival, the patient was started on Levophed for blood pressure support. He was hypotensive. Difficulty treating with diuretics due to his hypotensive state. In the emergency room, his blood pressure was 80 systolic. He was found to be in atrial fibrillation, which is a new diagnosis. Dr. Horton had seen the patient and evaluated him at that time. PAST MEDICAL HISTORY: Chronic kidney disease stage IV. His baseline creatinine remains at 2.4 to 3. Mitral valve disorder undergoing mitral valve replacement 2009. Transcutaneous mitral valve replacement 2019. Ischemic cardiomyopathy with left ventricular ejection fraction of 30 to 35 percent in 2018. Chronic biventricular congestive heart failure, pulmonary hypertension, COPD, obstructive sleep apnea, morbid obesity, atrial arrhythmias in the past with post cardioversion on 11/03/2018, coronary artery disease status post angioplasty with stenting right coronary and distal LAD, moderate aortic stenosis with trace aortic regurg, previous history of DVT with chronic venous insufficiency, hypertension, hyperlipidemia, diabetes mellitus type 2, cirrhosis, non-Hodgkin's lymphoma, anemia of chronic disease, history of intracoronary thrombus in 2010. PAST SURGICAL HISTORY: Mitral valve replacement 2009, transcutaneous mitral valve replacement 2019. He has had bone marrow biopsies, septoplasty, right knee and shoulder surgery, abdominal hernia repair, multiple EGD's. FAMILY HISTORY: Negative for acute kidney injury or end-stage renal disease. SOCIAL HISTORY: The patient is . His mother lives with the family. He has family who are attentive to his care. Previous smoker. No alcohol or illicit drug use. ALLERGIES LISTED: Reglan, penicillin, sulfa, tetanus, Levaquin and propofol. MEDICATIONS: Have yet to be reconciled. Previous medications taken on our file: Acetaminophen, DuoNebs, Cordarone, aspirin, Coreg, Keflex, Plavix, daptomycin, Benadryl, Lasix, Apresoline, Atarax, Isordil, ketoconazole, Calmoseptine, Protonix and Aldactone. REVIEW OF SYSTEMS: The patient denies chest pain positive for increased work of breathing. He denies any nausea or vomiting. No diarrhea, though he has had a decrease in appetite. He continues to monitor his fluid volume intake with a fluid restriction. Denies any fever or chills. No hematochezia, hemoptysis or hematuria. Moderate changes to his lower extremity edema. Abdominal swelling. PHYSICAL EXAMINATION: The patient's most recent vital signs: Temperature of 97.9, blood pressure 102/63, heart rate 107, respirations are 14. He is on a Levophed drip. He is currently on BiPAP 40%; last recorded saturation is 98%. He has had 0 recorded in or out at the time the patient was seen. General: This is a 68-year-old white male. He appears chronically ill. He is in no acute distress. Skin: Warm and dry. HEENT: Normocephalic, atraumatic. Conjunctiva is pale pink. He has JEFF. Mucous membranes are dry. Neck: Supple. Trachea midline. Questionable JVD. Patient has BiPAP straps in place. Cardiovascular: Irregularly irregular rate and rhythm. He has PVCs that are frequent on the monitor. Lungs: Diminished breath sounds bilateral. Poor inspiratory effort with BiPAP support. Coarse breath sounds auscultated. Abdomen: Large, obese, soft, nontender. Positive bowel sounds. Genitourinary: The patient does have some scrotal swelling present. Dejesus catheter has to be placed. Extremities: Patient has 2+ to 3+ lower extremity edema. He has bilateral ecchymosis in different stages of healing, bruises to the upper and lower extremities. He has a dressing to his right lower extremity erythematous and, on inspection, warm to touch. Neurological: He is alert and oriented x3. LABS: Sodium is 139, potassium 4.7, chloride 100, CO2 20. BUN 61, creatinine 2.2, glucose is 112. He has an anion gap of 19, calcium 8.5, phosphorus 4.4, albumin 3.1, magnesium 2.3. White count 10.1, hemoglobin 10.6, hematocrit 32.8 with a platelet count of 190. The patient on admission had a PT of 18.5 and INR of 1.42, PTT 36.8. X-RAYS: The patient's chest x-ray on admission initially showed overall worsening in right lung infiltrate. ASSESSMENT AND PLAN: 1. Chronic kidney disease stage IV. The patient is at his historical baseline of 2.2 up to the 3 range. No indications for changes. We will monitor his intakes and outputs. 2. Fluid volume overload. Patient was treated with Lasix 60 mg. He is currently on Levophed for BP support. 3. Electrolytes and acid-base balance. These are currently stable. 4. Anemia. This is close to target. 5. Leukocytosis. The patient has received a dose of Rocephin and vancomycin this a.m. 6. Abdominal swelling with hypotension. Patient states that he is scheduled for paracentesis later today. I would like to thank you for allowing us to follow with this patient. Dictated by TATYANA Castro for Eyad Villela MD Face to face encounter, data reviewed, discussed with Reshma Triplett on 12/03/18. I agree with the above assessment and plan of care. cc: TATYANA Castro MD [facility]
[2018-12-02] MEDS: NEOSPORIN OINTMENT TUBE TOP SCH (16:48)
[2018-12-02] MEDS ORDERED: LANOXIN IV ONE ×2 (17:23→22:00)
[2018-12-02] MEDS ORDERED: LOPRESSOR IV PRN (18:12)
[2018-12-02] MEDS ORDERED: ALBUMIN 25% IV ONE (18:13)
[2018-12-02] MEDS: LOVENOX SUBQ SCH (18:24)
--- NOTE | 2018-12-02 18:39 | INFECTIOUS DISEASE CONSULT REP ---
DATE: 12/02/2018 I have been asked to see this patient regarding spontaneous bacterial peritonitis. I think he does indeed have spontaneous bacterial peritonitis. RECOMMENDATION: I agree with using Rocephin. Claforan is often used, but at the hospital here, Rocephin is substituted for Claforan. I would suggest treating the patient for at least 7 days with Rocephin, and I think the patient would benefit from prophylactic antibiotic medication. The one that is used often is Bactrim, but this patient has renal insufficiency, and therefore, I think Bactrim would be contraindicated. Possibly a drug such as Ceftin could be used. I think it is possible the patient could have a right-sided pneumonia. He already is on a good antibiotic, namely Rocephin, to treat it, and I have ordered a procalcitonin level. DISCUSSION: The patient says that his abdomen has been swelling for 3 weeks, for 2 weeks, he has had shortness of breath and constipation, and in the past 5 days, he has developed a punctate erythematous rash on the right leg. DIAGNOSTIC STUDIES: His studies thus far show a CBC with a white count of 10,100, hemoglobin 10.6, and platelet count 190,000. Creatinine is 2.2, GFR is 30, bilirubin is 4.41, alkaline phosphatase is 187. The patient had an abdominal paracentesis, and 7.5 L of fluid was pulled off. The white count on the ascitic fluid was 8915, of which 93% were polymorphonuclear cells. Blood cultures and ascites cultures are pending. CT scan of the abdomen and pelvis showed findings of cirrhosis and splenomegaly. The CT was taken after the paracentesis, and thus there was very little ascites left. Chest x-ray shows cardiomegaly with worsening right lung infiltrate. PAST MEDICAL HISTORY/REVIEW OF SYSTEMS: Eyes and ears: The patient denies trouble hearing or seeing. Neck: No stiffness. Respiratory: See present illness. Gastrointestinal: See present illness. Genitourinary: The patient does not have dysuria or flank pain. Neurologic: He has not been having any seizures. He has not recently had any loss of motor or sensory function. PREVIOUS HOSPITALIZATIONS AND OPERATIONS: Patient has had surgery on his right shoulder and on his right knee. He has had a hernia repair. He has had sinus surgery. He has had mitral valve replacement, and then he subsequently to that had a transcutaneous mitral valve replacement. MEDICAL DISEASES: Positive for obesity, hypertension, myocardial infarction, mitral valve disorder, ischemic cardiomyopathy, chronic biventricular congestive heart failure, moderate to severe pulmonary hypertension, chronic obstructive pulmonary disease, obstructive sleep apnea, morbid obesity, atrial arrhythmias including atrial flutter and atrial fibrillation, history of deep venous thrombosis, hyperlipidemia, diabetes mellitus, chronic kidney disease, cirrhosis of the liver, non-Hodgkin's lymphoma, and intracoronary thrombus. FAMILY HISTORY: Positive for diabetes mellitus, hypertension, myocardial infarction, and cancer. SOCIAL HISTORY: [place] He is . He is retired. He has dogs for pets. The patient does not currently smoke cigarettes, drink alcoholic beverages, or abuse drugs. ALLERGIES: He is allergic to penicillin, but he has had in the hospital here now Rocephin and at home Keflex and has tolerated them well. The patient also is allergic to Reglan, sulfa, Levaquin, propofol, and tetanus toxin. PHYSICAL EXAMINATION: Vital Signs: Temperature is 99.9 degrees, pulse 120, respirations 18, blood pressure 93/69. Weight: The patient weighs 285 pounds. General: This is an obese, elderly male. He is in no acute distress. Head, eyes, ears, nose, and throat: He can hear my spoken words and see near objects. There appears to be scleral icterus. Neck: No pain with movement. Lungs: There were bibasilar rales. Cardiovascular: Heart rate is irregular. Abdomen is soft, but tender. Extremities: The patient has bilateral leg edema. Also, there are punctate erythematous lesions on the patient's right leg. Neurologic: The patient is awake. He can move his extremities. There is no tremor. His sensation is intact to touch. His memory as regarding his medical history is reduced. Thank you for the consult the. cc: Cortez Helm MD
--- NOTE | 2018-12-02 18:54 | PROGRESS NOTE ---
DATE: 12/02/2018 SUBJECTIVE: Patient reports feeling much better, following paracentesis. 7.5 L was removed. He denies any shortness of breath or chest discomfort on supplemental oxygen per nasal cannula. He continues on intravenous Levophed for blood pressure support. Diuretic response to IV Lasix 60 mg has been very limited. OBJECTIVE: Vital Signs: Blood pressure 87/57. Heart rate 105 to 111 and irregular with ECG monitor showing atrial fibrillation. Neck: Jugular venous distention is present consistent with elevated central venous pressure. Chest: Clear to auscultation anteriorly with coarse breath sounds bilaterally. Cardiac Exam: Reveals an irregular rate and rhythm without appreciable murmur or gallop. Abdomen: Soft. Bowel sounds audible. Extremities: Demonstrate moderate edema, more so in the distal left lower extremity. LABORATORY DATA: Includes a white blood cell count of 10.1, hematocrit 32.8, hemoglobin 10.6, platelet count 190. Sodium 139, potassium 4.7, chloride 100, carbon dioxide 20, BUN 61, creatinine 2.2, glucose 112. Bilirubin 4.4, AST 20, ALT 8. Albumin 3.1. IMPRESSION: 1. 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 2. Mitral valve disorder with previous mitral valve replacement and later/more recent transmitral valve replacement. 3. Atrial fibrillation. Has developed since last clinic visit. 4. Ischemic cardiomyopathy with left ejection fraction of 30-35%. 5. Atherosclerotic coronary disease. 6. Moderate aortic stenosis with trace aortic regurgitation. 7. Moderate pulmonary hypertension. 8. Obstructive sleep apnea. 9. Obesity. 10. Hypertension. 11. Type 2 diabetes mellitus. 12. Hyperlipidemia. 13. Acute on chronic kidney disease. Suspect possible cardiorenal component. 14. Cirrhosis. RECOMMENDATIONS: 1. Continue pressor support for blood pressure. 2. Increase IV Lasix to try to find dose that gives good diuretic response. 3. Transiently we will use digoxin for rate control cautiously and monitor levels. 4. Resume beta-ajay when blood pressure permits. 5. Atrial fibrillation likely aggravating tendency for congestive heart failure in setting of ischemic cardiomyopathy, mitral valve disorder, and pulmonary hypertension. There may not be an ideal antiarrhythmic drug for him. May give some consideration to amiodarone. For now, continue rate control and anticoagulation. cc: Santo Horton MD
[2018-12-03] MEDS: PROTONIX IV SCH ×2 (00:17→14:10)
[2018-12-03] MEDS: SODIUM CHLORIDE 0.9% INJ SCH (00:17)
[2018-12-03] MEDS: LEVOPHED 8 MG in D5 1/2 NS 250 ML IV SCH (03:48)
[2018-12-03] MEDS: TYLENOL PO PRN ×2 (03:48→20:37)
[2018-12-03] MEDS: LASIX IV SCH ×2 (04:40→17:34)
[2018-12-03 05:25] LABS: BASO# 0.02 X1000 (0.0-0.2); BASO% 0.2 % (0.0-0.8); EOS# 0.36 X1000 (0.0-0.7); HEMATOCRIT 31.4 % (42.0-52.0); HEMOGLOBIN 10.5 g/dL (14.0-18.0); IMM GRAN# 0.02 X1000 (0.0-0.04); IMM GRAN% 0.2 % (0.0-0.5); LYMPH# 0.47 X1000 (1.2-3.4); LYMPH% 5.3 % (20.5-51.1); MCH 30.1 PG (27-31); MCHC 33.4 g/dL (33-37); MONO# 0.73 X1000 (0.11-0.59); MONO% 8.2 % (1.7-9.3); MPV 9.7 FL (7.4-10.4); NEUT# 7.35 X1000 (1.4-6.5); NEUT% 82.1 % (42.2-75.2); PLT 175 X1000 (130-400); RBC 3.49 XMIL (4.7-6.1); RDW 16.2 % (11.5-14.5); WBC 8.95 X1000 (4.8-10.8)
[2018-12-03] MEDS: HUMALOG SUBQ SCH ×4 (06:04→21:17)
[2018-12-03 06:19] LABS: ALB/GLOB RATIO 0.8; ALBUMIN 2.7 g/dL (3.5-5.0); CALCIUM 8.1 mg/dL (8.8-10.2); CREATININE 2.2 mg/dL (0.7-1.2); MAGNESIUM 2.2 mg/dL (1.5-2.7); PHOSPHORUS 4.4 mg/dL (2.7-4.5); POTASSIUM 3.5 mmol/L (3.5-5.1); TOTAL BILIRUBIN 2.66 mg/dL (0.20-1.00); TOTAL PROTEIN 5.9 g/dL (6.3-8.3)
--- NOTE | 2018-12-03 07:31 | EKG Report ---
Test Performed on : 12/03/2018 06:55:42 AM Test Reason : afib Blood Pressure : / mmHG Vent. Rate : 095 BPM Atrial Rate : 029 BPM P-R Int : 000 ms QRS Dur : 102 ms QT Int : 386 ms P-R-T Axes : 000 104 142 degrees QTc Int : 485 ms Undetermined rhythm Incomplete right bundle branch block Possible Right ventricular hypertrophy Nonspecific ST and T wave abnormality Abnormal ECG When compared with ECG of 02-DEC-2018 06:53, Current undetermined rhythm precludes rhythm comparison, needs review Confirmed by Shell LIVINGSTON, Matt ([id number]) on 12/03/2018 1:04:20 PM
[2018-12-03] MEDS: NEOSPORIN OINTMENT TUBE TOP SCH (08:30)
[2018-12-03] MEDS: LANOXIN IV SCH (08:30)
[2018-12-03] MEDS: ROCEPHIN 2 GM in NS 50 ML IV SCH (08:31)
[2018-12-03] MEDS ORDERED: TUMS PO ONE (10:48)
--- NOTE | 2018-12-03 13:56 | INFECTIOUS DISEASE PROGRESS NO ---
DATE: 12/03/2018 PRESENT ILLNESS: The patient has spontaneous bacterial peritonitis. The patient also may have a pneumonia. MEDICATIONS: The patient is receiving Rocephin. This is day 1 of treatment with that agent. PHYSICAL EXAMINATION: Vital Signs: Temperature is 99 degrees, pulse 92, respirations 14, blood pressure 110/63. General: This is an ill-appearing elderly male. He is in no acute distress. Head/eyes/ears/nose/throat: He can hear my spoken words and see near objects. He appears to have scleral icterus. There are no white patches on his tongue. Neck: No pain with movement. Lungs: Clear to auscultation. Cardiovascular: Heart rate is irregular. Abdomen: Soft and slightly tender but it is much less protuberant than it was prior to the drawing off of ascites from the abdomen by the radiologist. Neurologic: Patient is alert. He can move his extremities. There is no tremor. LAB AND X-RAY: CBC shows a white count of 8950, hemoglobin 10.5, and platelet count 175,000. Creatinine is 2.2. GFR is 30. Thus far, the ascitic fluid and blood are sterile. Ascites AFB smear was negative. ASSESSMENT AND PLAN: I think the patient does indeed have spontaneous bacterial peritonitis. I would suggest continuing with Rocephin for 7 to 10 days and then consider putting him on prophylactic antibiotics, namely Ceftin 500 mg p.o. daily. The patient may have a pneumonia as well. The Rocephin that the patient is on should be good coverage for pneumonia also. Plan to continue Rocephin for 7 to 10 days. Plan to repeat his chest x-ray to see if his pneumonia is clearing. I think the patient would be entitled to be put on an antibiotic prophylactically because of his spontaneous bacterial peritonitis. Usually the antibiotic chosen is Bactrim, but because of the patient's age and renal function, I do not think we should use it and possibly the best medication for him would be Ceftin 500 mg p.o. daily. COMORBIDITIES: He is elderly. He has diabetes mellitus and cirrhosis of the liver along with lymphoma. The patient also has chronic kidney disease and finally, the patient also has hyperlipidemia. cc: Cortez Helm MD
--- NOTE | 2018-12-03 15:30 | PROGRESS NOTE ---
DATE: 12/03/2018 SUBJECTIVE: This morning, Mr. Shelby refers to be feeling a lot better. He got 7.5 L removed from his abdomen yesterday. Fluid analysis is consistent with SBP and the patient was started on antibiotics. Gastroenterology has been consulted to see him as well. The patient was seen by Infectious Disease. OBJECTIVE: Vital signs: Blood pressure is 118/71, pulse is 92, respirations 22, temperature is 98.4 degrees. The patient is saturating about 93% to 97% on 2 L. General: Mr. Shelby is a 68-year-old morbidly obese, male. He is in bed. No distress. HEENT: Mucosa is pink and moist. Anicteric. Acyanotic. Neck: Supple. He has a BMI of 41.5. Chest: Good air entry bilateral. There are a few crackles in the posterior lung harden. Cardiovascular: Irregularly irregular but rate controlled. Abdomen: Soft, is distended. There is some mild tenderness on palpation in general abdomen. No rebound. There is no hepatosplenomegaly. There is positive fluid thrill. Extremities: About 3+ pedal edema. There are also some chronic skin changes in the lower extremities consistent with congestive dermatopathy. Neurologic: The patient is awake, alert, and oriented. LABORATORY DATA: WBC is 8.95, hemoglobin is 10.5, platelet count of 172,500. Chemistry is also reviewed. Creatinine is 2.2, total bilirubin is 2.66. The patient's fluid analysis from yesterday has been reviewed. His SAG is more than 1.1 which is consistent with portal hypertension physiology. He also has a white cell count of 8915, predominantly neutrophilic. ASSESSMENT: 1. Anasarca secondary to congestive heart failure. The patient continues to be on diuretic therapy. He is currently he is making adequate urine, 3400 urine output for negative balance of 2256. 2. Congestive heart failure with ejection fraction of 30% to 35% in exacerbation. 3. Severe ischemic cardiomyopathy. We will continue with his home medications. 4. Severe mitral valvulopathy. The patient is status post mitral valve replacement. 5. Obesity hypoventilation syndrome with obstructive sleep apnea. 6. Massive ascites secondary to cardiac cirrhosis complicated with SBP. This is has been tapped, 7.5 L has been drained. Fluid analysis is consistent with SBP. The patient has been started on IV antibiotics. Now his bilirubin is also high as well as his creatinine, so I think an argument can be made for prophylactic antibiotic even after the acute treatment. Either Bactrim or norfloxacin is the medication of choice that can be used. We will address that after the current treatment. 7. Cardiogenic shock, improved. The patient is now off the Milrinone and Levophed is on downward titration. Blood pressures have been fairly stable. cc: Jose D Paige MD
--- NOTE | 2018-12-03 16:10 | NEPHROLOGY PROGRESS NOTE ---
DATE: 12/03/2018 SUBJECTIVE: He states he is feeling better today. He has been able to eat. Good urine output. Shortness of breath is minimal. OBJECTIVE: Vital Signs: Blood pressure 97/65, heart rate 98, respiration 18, afebrile. Intake 1.3 L; output 3.4 L. General: On physical examination, no acute distress. Skin: Warm and dry with multiple ecchymoses. Eyes: Conjunctivae are pink. Neck: Neck veins are distended. Heart: Irregular with frequent ectopy as well. Lungs: Have equal breath sounds. No crackles or wheezes anteriorly. Abdomen: Soft, distended. Bowel sounds present. Extremities: Have 2+ edema. No clubbing or cyanosis. IMPRESSION: Cardiorenal syndrome. Elevated BUN to creatinine ratio. Baseline creatinine is approximately 2 over the last year. He has had multiple readmissions secondary to decompensated cardiorenal syndrome. He is currently improving with diuretic therapy and intravenous diuretics. We will continue this care. No other intervention at this time. cc: Eyad Villela MD
--- NOTE | 2018-12-03 16:18 | PROGRESS NOTE ---
DATE: 12/03/2018 SUBJECTIVE: The patient denies chest discomfort or dyspnea on supplemental oxygen per nasal cannula. Diuresis appears to have been established with intravenous Lasix. OBJECTIVE: Vital Signs: Blood pressure 118/71, heart rate 92 and irregular with ECG monitor showing atrial fibrillation, oxygen saturation 93%-97% on nasal cannula oxygen at 2 L/minute. Neck: Jugular venous distention is present consistent with significantly elevated central venous pressure. Chest: Clear to auscultation anteriorly. Cardiac: Reveals an irregular rate and rhythm without appreciable gallop. Abdomen: Soft and nontender. Extremities: Demonstrate moderate edema more so in the distal left lower extremity. LABORATORY DATA: Includes white blood cell count 8.95, hematocrit 31.4, hemoglobin 10.5, platelet count 175,000. Sodium 134, potassium 3.5, chloride 98, carbon dioxide 23, BUN 61, creatinine 2.2, glucose 122, albumin 2.7, bilirubin 2.66. IMPRESSION: 1. Acute on chronic biventricular congestive heart failure, predominantly right-sided heart failure with associated anasarca and ascites. The patient is status post paracentesis. 2. Abnormal ascites fluid suggesting subacute bacterial peritonitis. 3. Mitral valve disorder with previous mitral valve replacement and later more recent transcutaneous mitral valve replacement. 4. Atrial fibrillation, persistent. Rate is controlled. 5. Ischemic cardiomyopathy with left ventricular ejection fraction of 30%-35%. 6. Atherosclerotic coronary disease. 7. Moderate aortic stenosis with trace aortic regurgitation. 8. Moderate pulmonary hypertension with right ventricular dysfunction. 9. Obstructive sleep apnea. 10. Obesity. 11. Hypertension. 12. Type 2 diabetes mellitus. 13. Acute on chronic renal disease. 14. Cirrhosis suspected. RECOMMENDATIONS: 1. Continue pressor support as required. 2. Continue intravenous Lasix 100 mg IV b.i.d. 3. Continue to use low-dose digoxin cautiously for rate control. Resume beta-ajay when blood pressure permits. 4. Management of atrial fibrillation. Consider further and also discuss with his primary home child care provider, Dr. Bhupinder Fleming. The potential adverse of amiodarone would seem to negate any potential benefit and it is felt best to not initiate amiodarone. We will continue to manage atrial fibrillation for now with rate control and anticoagulation as tolerated. cc: Santo Horton MD
[2018-12-03] MEDS: LOVENOX SUBQ SCH (17:35)
[2018-12-04] MEDS: PROTONIX IV SCH ×2 (01:02→12:10)
--- NOTE | 2018-12-04 04:01 | GASTROENTEROLOGY CONSULTATION ---
DATE: 12/03/2018 REASON FOR CONSULTATION: Cirrhosis, ascites, and spontaneous bacterial peritonitis. HISTORY OF PRESENT ILLNESS: Mr. 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 Per patient, he reports a 50 pounds weight gain over the last month with worsening abdominal distention without abdominal pain. He also reports associated shortness of breath, lower extremity edema. No orthopnea or PND. No nausea, vomiting, fevers, rectal bleeding, hematemesis. He underwent diagnostic and therapeutic paracentesis with removal of 7.5 L of milky yellow ascites yesterday. The cell count and differential shows greater than 250 neutrophils consistent with SBP. The patient was started on antibiotics with ceftriaxone. He is also on diuretics with Lasix IV as well as Levophed to maintain his blood pressure. The patient denies any prior significant alcohol use. He denies any family history of liver disease. Prior to today, he was unaware of any findings of cirrhosis. Denied any prior jaundice or confusion, and he has never had a paracentesis prior to this admission. PAST MEDICAL HISTORY: As per HPI. History includes chronic kidney disease, type 2 diabetes, previous DVT, morbid obesity. PAST SURGICAL HISTORY: Mitral valve replacement, hernia surgery. MEDICATIONS: Lexapro, Plavix, omeprazole, Tylenol, calcium carbonate, Lasix, spironolactone, apixaban, carvedilol, colchicine. ALLERGIES: Reglan, penicillins, sulfa, tetanus vaccines and toxoid, Levaquin, propofol. REVIEW OF SYSTEMS: As per HPI, otherwise 12 point review of systems is negative. PHYSICAL EXAM: General: The patient is awake, alert, oriented, in no acute distress. HEENT: Sclerae anicteric. Moist mucous membranes. Neck: Supple with JVD. No lymphadenopathy. Cardiac: Irregularly irregular. No murmurs. Lungs: Decreased breath sounds at the basis. Abdomen: Obese, nontender. Bowel sounds present. Ascites notable, however, difficult to appreciate given habitus. Extremities: With 2 to 3+ edema. Neurologic: Nonfocal. No asterixis. LABORATORY DATA: White count of 8.9, hemoglobin 10.5, platelets 175,000. INR 1.42. Sodium 134, potassium 3.5, chloride 98, bicarb 23, BUN 61, creatinine 2.2, which is at baseline. Glucose of 122. [*]2.6 from 4.3 on admission. AST 12, ALT 6, alkaline phos 164, total protein 5.9, albumin 2.7. Ascites fluid shows 8915 white blood cell count, 93% polynuclear white blood cells, albumin of 1.3, total protein of 2.8. IMAGING: Chest x-ray on 12/01 shows infiltrates in the mid and right lower lungs with basilar atelectasis and small pleural effusions. CT of the abdomen and pelvis without contrast shows probable ascites, splenomegaly, severe body wall edema, trace residual ascites, mild rectal stool impaction. ASSESSMENT AND PLAN: Mr. Pradip Shelby is a 68-year-old man with multiple comorbidities, including ischemic cardiomyopathy, history duodenal lymphoma, morbid obesity, who presents with congestive heart failure exacerbation, found to have ascites requiring LBP. Analysis of the ascitic fluid shows subacute bacterial peritonitis as well as elevated protein and low saturation consistent with cardiac ascites. His cirrhosis is likely combination of non-alcoholic steatohepatitis plus congestive cardiac cirrhosis. Other than his ascites, there are no signs of other decompensation, including gastrointestinal bleed, hepatic encephalopathy, or jaundice. His LFTs have improved with removal of fluid and supporting his blood pressure. Infectious disease is following for his subacute bacterial peritonitis. Agree with treatment with ceftriaxone and transitioning to oral medication for prophylaxis. I would continue diuresis for his congestive heart failure, as the primary treatment of his ascites. He will need an esophagogastroduodenoscopy as an outpatient at some point to screen for varices. 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 His last EGD was in [address] Greco. He had a colonoscopy in 2006 which was normal. The patient has had a negative hepatitis panel in the past in 2018, as well as a normal ferritin. The pattern of LFT elevations did not match autoimmune hepatitis. Prior alpha-1 antitrypsin as well as ceruloplasmin were normal in the past. He has had a negative chronic liver disease workup as well with other findings, including a normal MADAN positive, smooth muscle antibody was negative. AMA was also negative. Thank you for this consult. We will follow with you. Please call with any questions or concerns.
[2018-12-04] MEDS: LASIX IV SCH (05:44)
[2018-12-04 06:22] LABS: BASO# 0.02 X1000 (0.0-0.2); BASO% 0.3 % (0.0-0.8); EOS# 0.28 X1000 (0.0-0.7); EOS% 4.4 % (0.0-10.0); HEMATOCRIT 30.4 % (42.0-52.0); HEMOGLOBIN 10.1 g/dL (14.0-18.0); LYMPH# 0.39 X1000 (1.2-3.4); LYMPH% 6.2 % (20.5-51.1); MCH 29.9 PG (27-31); MCHC 33.2 g/dL (33-37); MCV 89.9 FL (81-99); MONO# 0.51 X1000 (0.11-0.59); MONO% 8.1 % (1.7-9.3); MPV 9.7 FL (7.4-10.4); PLT 159 X1000 (130-400); RBC 3.38 XMIL (4.7-6.1); RDW 15.7 % (11.5-14.5)
[2018-12-04 07:11] LABS: ALB/GLOB RATIO 0.8; ALBUMIN 2.5 g/dL (3.5-5.0); CALCIUM 8.3 mg/dL (8.8-10.2); MAGNESIUM 1.9 mg/dL (1.5-2.7); PHOSPHORUS 3.9 mg/dL (2.7-4.5); POTASSIUM 3.5 mmol/L (3.5-5.1); TOTAL BILIRUBIN 1.7 mg/dL (0.20-1.00); TOTAL PROTEIN 5.8 g/dL (6.3-8.3)
[2018-12-04] MEDS: HUMALOG SUBQ SCH ×4 (07:28→21:09)
[2018-12-04] MEDS: ROCEPHIN 2 GM in NS 50 ML IV SCH (08:27)
[2018-12-04] MEDS: LANOXIN IV SCH (08:27)
[2018-12-04] MEDS: NEOSPORIN OINTMENT TUBE TOP SCH (08:28)
[2018-12-04] MEDS: TYLENOL PO PRN (09:31)
[2018-12-04] MEDS: ICAR-C PO SCH ×2 (09:31→21:10)
[2018-12-04] MEDS: CENTRUM SILVER PO SCH (09:31)
--- NOTE | 2018-12-04 09:58 | PROGRESS NOTE ---
DATE: 12/04/2018 SUBJECTIVE: This morning, Mr. Shelby refers to be doing fairly okay. He is off the Levophed since ate last night and blood pressures have been fairly within normal range. OBJECTIVE: Vital signs: Blood pressure is currently 120/76, pulse is 98, respiration is 18, temperature is 97.7 degrees. Patient is saturating 99% on 5 L of nasal cannula. General: Mr. Shelby 68-year-old male. He is in bed. He had just been put back on the BiPAP. He has a BMI of 41.5. HEENT: Mucosa is pink and moist. Anicteric. Acyanotic. Neck: Supple. Respiratory System: Good air entry bilateral. A few crackles posteriorly. Cardiovascular: Irregularly irregular but rate controlled. Abdomen: Soft, distended, is no more tender. There is fluid thrill. Extremities: About 2, maybe 1+ pedal edema with some chronic changes consistent with congestive dermatopathy. Central nervous system: Patient is awake, alert, oriented. There is no focal neurological deficit. INTAKE AND OUTPUT: Urine output was 5350. The patient is currently negative balance of 7596. His current weight is 272 from 315 on admission. LABORATORY DATA: WBC 6.30, hemoglobin is 10.0, platelet count 159,000. Chemistry is also reviewed. Creatinine continues to be downward trend, is 2.0 this morning. Total bilirubin is 1.7. Liver function test is normal. MICROBIOLOGY: So far, both peritoneal fluid and blood cultures have been negative. CURRENT MEDICATIONS: Have all been reviewed and no changes. ASSESSMENT: 1. Anasarca secondary to congestive heart failure. Patient continues to be on diuretic therapy. He is making adequate urine. He is losing weight, is currently negative balance. 2. Congestive heart failure with ejection fraction of 30% to 35%, in exacerbation. Improved. 3. Severe ischemic cardiomyopathy. Noted. 4. Severe mitral valvulopathy. The patient is status post mitral valve replacement and transcatheter aortic valve replacement. Follows up with Cardiology. 5. Massive ascites secondary to cardiac cirrhosis complicated with spontaneous bacterial peritonitis, 7.5 L has been drained. Fluid is consistent with spontaneous bacterial peritonitis. He is currently on IV Rocephin. 6. Hypotension on presentation, presumably due to a combination of cardiogenic shock and probably some sepsis as well from the spontaneous bacterial peritonitis. The patient was on vasopressor for some time. However, blood pressure has been normalized. 7. Obesity hypoventilation syndrome with obstructive sleep apnea. Noted. PLAN: In general, Mr. Shelby is clinically improving. He is currently off vasopressor. He continues to be on IV antibiotics. Blood pressures have normalized. Still cycle between BiPAP and nasal cannula for oxygen demands. We think he is fairly stable to be transferred from the ICU to regular medical floor. We will get Physical Therapy to start working with him and continue his current management. cc: Jose D Paige MD
[2018-12-04] MEDS ORDERED: EMLA CREAM TOP ONE (11:18)
[2018-12-04] MEDS ORDERED: BRETHINE SUBQ ONE (11:30)
[2018-12-04] MEDS ORDERED: ALBUMIN 25% IV ONE (11:45)
[2018-12-04] MEDS: ALDACTONE PO SCH ×2 (12:39→21:10)
[2018-12-04] MEDS ORDERED: LASIX IV SCH (12:45)
[2018-12-04] MEDS ORDERED: ALDACTONE PO SCH (15:03)
--- NOTE | 2018-12-04 15:54 | GASTROENTEROLOGY PROGRESS NOTE ---
DATE: 12/04/2018 SUBJECTIVE: Resting in bed. He is feeling better. He denies any fevers, rigors or chills. He has been afebrile. He has been moving his bowels. He was able to eat his meal last night. PHYSICAL EXAMINATION: Vital Signs: Temperature afebrile, pulse rate of 98, respiratory rate 18, blood pressure 120/76, saturating 98% on nasal cannula 5 L. Body weight of 272 pounds 6.4 ounces. BMI 39 kg. General: Morbidly obese. Lying in bed, no acute distress. HEENT: Pale conjunctiva. Mild icterus. Neck: Supple. Abdomen: Morbidly obese. Positive ascites. No guarding. No rebound. Extremities: Bilateral lower extremity edema noted. Neuro: He is awake, alert, oriented to time, place, person. LABS: Hemoglobin and hematocrit is 10.1 and 30.4, white count of 6.3, platelet count of 159,000. Sodium 130, potassium 3.5, chloride 97, bicarb 26, anion gap 13, BUN of 54, creatinine 2, glucose of 100, calcium is 8.3, phosphorus 3.9, magnesium 1.9. Total bilirubin is 1.7. AST 12, ALT 5, alkaline phosphatase 184. Total protein 4.8, albumin of 2.5. His ascitic fluid studies show high white count of 8915, neutrophils 93% consistent with peritonitis. AFB is negative in the ascitic fluid. Ascitic fluid cultures are preliminary negative. Blood culture negative after 48 hours. IMPRESSION/PLAN: 1. Ischemic cardiomyopathy being managed by the primary care team. 2. History of duodenal lymphoma which was treated. Last EGDs were done in the past with Dr. Pizarro back in 2007. He may need EGD at some point, we will decide based on his overall clinical course. 3. Morbid obesity. Patient counseled to lose weight. 4. Congestive heart failure exacerbation may be contributing to ascites and cardiac cirrhosis although he has a component of morbid obesity which may be contributing to fatty liver disease. Both of them may be contributing to recurrent ascites. 5. Spontaneous bacterial peritonitis. He is on antibiotics. 6. GI prophylaxis, PPIs. 7. Anemia. We will start on iron C b.i.d. Multivitamin once daily. 8. DVT prophylaxis with Lovenox 130 mg subcu every day per Dr. Sol. 9. He is on ceftriaxone 2 g IV once daily for spontaneous bacterial peritonitis. 10. He may benefit from albumin 25 g IV every day for 3 days as he has SBP if okay with Cardiology Team. 11. The above plans discussed with the patient and the nursing staff and all questions answered. Please call us with any further questions. We will follow along. cc: Rayray Art MD MTDD
--- NOTE | 2018-12-04 16:21 | NEPHROLOGY PROGRESS NOTE ---
DATE: 12/04/2018 SUBJECTIVE: He is complaining of pain in the left forearm at the site of an IV infiltration. Otherwise, no shortness of breath, nausea, vomiting, etc., today. OBJECTIVE: Vital Signs: Blood pressure 87/60 heart rate 88, respirations 22, afebrile. Intake 1.8 L; output 7.2 L. General: On physical examination, no acute distress. Skin: Warm and dry. Eyes: Conjunctivae are pink. Neck: Neck veins are not appreciated. Heart: Regular. Lungs: Equal. No crackles. Abdomen: Obese soft, nontender. Bowel sounds present. Extremities: Have trace edema, except the left forearm is mildly erythematous and edematous diffusely. IMPRESSION: Cardiorenal syndrome. Excellent response to diuretics, and his BUN and creatinine are improving. I will decrease his diuretic dosing to once daily. No other changes. cc: Eyad Villela MD
[2018-12-04] MEDS: COREG PO SCH (17:13)
[2018-12-04] MEDS: LEXAPRO PO SCH (21:10)
[2018-12-04] MEDS: ELIQUIS PO SCH (21:10)
[2018-12-05] MEDS: COREG PO SCH ×3 (04:15→20:34)
[2018-12-05] MEDS: HUMALOG SUBQ SCH ×3 (06:24→16:04)
[2018-12-05] MEDS: SODIUM CHLORIDE 0.9% INJ SCH (06:43)
[2018-12-05] MEDS: PROTONIX IV SCH ×2 (06:43→18:00)
[2018-12-05] MEDS ORDERED: PRILOSEC PO PRN (07:00)
[2018-12-05] MEDS: ROCEPHIN 2 GM in NS 50 ML IV SCH (10:32)
[2018-12-05] MEDS: COLCRYS PO SCH (10:33)
[2018-12-05] MEDS: CENTRUM SILVER PO SCH (10:33)
[2018-12-05] MEDS: ALDACTONE PO SCH ×2 (10:33→20:34)
[2018-12-05] MEDS: ICAR-C PO SCH ×2 (10:33→20:34)
[2018-12-05] MEDS: ELIQUIS PO SCH ×2 (10:34→20:34)
[2018-12-05] MEDS: LANOXIN IV SCH (10:34)
[2018-12-05] MEDS: PLAVIX PO SCH (10:34)
--- NOTE | 2018-12-05 12:28 | PROGRESS NOTE ---
DATE: 12/05/2018 SUBJECTIVE: Today, Mr. Shelby refers to be doing fairly okay. Denies any complaints. He said the redness over the left forearm has significantly improved. OBJECTIVE: Vital Signs: Blood pressure is 117/58, pulse is 87, respirations are 18, temperature is 98.0 degrees, patient is saturating 95% on nasal cannula. General Examination: Mr. Shelby is a 68-year-old, morbidly obese, male. He is in bed. He was not in any distress. HEENT: Mucosa is pink and moist. Anicteric. Acyanotic. Neck: Supple. Chest: Good air entry bilateral. There were no crepitations. No rhonchi. Cardiovascular: Irregularly irregular but rate controlled. No murmurs, no rubs. Abdomen: Soft, nontender. Bowel sounds are present. It is morbidly distended with some fluid thrill. There is fluid in the lateral aspect of the abdominal wall. Extremities: About 2+ pedal edema with chronic congestive dermatopathy changes. DEPUTY CLERK OF COURT: The patient is awake, alert, and oriented. Laboratory Data: None for today. Glucose is 129. Is and Os: Urine output was 1600. The patient is currently negative balance of 8446. MEDICATIONS: Have all been reviewed. We will continue with the same. I have restarted him back on his p.o. Lasix. ASSESSMENT: 1. Anasarca secondary to congestive heart failure. 2. Congestive heart failure with ejection fraction of 30 to 35 percent, in exacerbation, improved. 3. Severe ischemic cardiomyopathy. 4. Mitral valvulopathy, status post mitral valve replacement. Cardiology is on board. 5. 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 The patient is status post paracenteses and 7.6 have been removed. Fluid analysis is consistent with spontaneous bacterial peritonitis. Patient is on intravenous Rocephin. He is being seen by infectious disease and gastroenterology. 6. Hypotension on presentation, resolved. 7. Morbid obesity with obesity hypoventilation syndrome and sleep apnea noted. 8. Generalized weakness. The patient has been evaluated by physical therapy. He was able to do 25 feet with a front wheel walker. 9. Chronic kidney disease stage IV, most likely from cardiorenal syndrome, stable. PLAN: In general, Mr. Shelby seems to be fairly stable. Fluid overload is improving. Patient is currently negative balance. He also had a paracenteses which reveals SBP and he is getting antibiotics. In terms of disposition, Mr. Shelby will need rehab to improve on his physical strength. We have consulted social services counselor to start the process. Mr. Shelby has expressed his preference to [facility]. cc: Jose D Paige MD
[2018-12-05] MEDS: NEOSPORIN OINTMENT TUBE TOP SCH ×2 (12:47→16:10)
[2018-12-05] MEDS ORDERED: PERICOLACE PO PRN (13:00)
[2018-12-05] MEDS: LASIX PO SCH ×2 (13:56→20:34)
[2018-12-05 15:02] LABS: ALBUMIN 2.8 g/dL (3.5-5.0); CALCIUM 8.5 mg/dL (8.8-10.2); PHOSPHORUS 3.5 mg/dL (2.7-4.5); POTASSIUM 3.9 mmol/L (3.5-5.1)
--- NOTE | 2018-12-05 17:45 | GASTROENTEROLOGY PROGRESS NOTE ---
DATE: 12/05/2018 SUBJECTIVE: Patient is resting in bed. The patient denies any new complaints. He is eating better. He is moving his bowels. He denies any fevers, rigors, or chills. OBJECTIVE: Vital signs: Temperature 98 degrees, pulse rate of 87, respiratory rate of 18, blood pressure 170/58, saturating 94% on nasal cannula. Body weight of 272 pounds 1 ounce. BMI of 39 kg/m2. General: Morbidly obese, lying in bed, in no acute distress. HEENT: Mild pallor. Mild icterus. Neck: Supple. Abdomen: Obese. Mild discomfort in the periumbilical region. No rebound or guarding. Positive ascites. Extremities: No cyanosis, clubbing. He has bilateral lower extremity edema. Neurologic: He is alert, awake, oriented x3. LABS: Blood glucose of 129. MICROBIOLOGY STUDIES: Peritoneal fluid is showing no growth. Blood culture x2 negative at 48 hours. IMPRESSION AND PLAN: 1. Spontaneous bacterial peritonitis. He is getting antibiotics. I am also giving him albumin 25 g IV once daily for 3 days. 2. Morbid obesity. The patient was counseled to lose weight. 3. 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 We will continue to follow liver enzymes and labs. 4. Coronary artery disease. He has been on Plavix. 5. Anemia. He is on Iron C b.i.d. and multivitamin once daily. 6. Congestive heart failure with ejection fraction of 30 to 35%. Being managed by the Primary Care Team. 7. Severe ischemic cardiomyopathy. Aware. 8. Mitral valve replacement. Cardiology is on board. He is on Eliquis 5 mg p.o. b.i.d. 9. Gastrointestinal prophylaxis with Protonix. 10. Bowel regimen. Currently patient is moving his bowels so we will start him on Jessica-Colace if needed. The above plan was discussed with the patient. All questions answered. Please call us with any further questions. cc: MD Christiano Meng MD MTDD
[2018-12-05] MEDS: LEXAPRO PO SCH (20:34)
[2018-12-06] MEDS: HUMALOG SUBQ SCH ×4 (00:07→17:53)
[2018-12-06] MEDS: NEOSPORIN OINTMENT TUBE TOP SCH ×2 (00:50→10:36)
--- NOTE | 2018-12-06 07:01 | Diag Imaging Result Doc PS360 ---
EXAM: CHEST-1 VIEW HISTORY: pneumonia TECHNIQUE: Portable chest two views COMPARISON: 12/01/2018 FINDINGS: The heart remains enlarged. Vascular distention persists. There are dense infiltrates in the left lower lobe with left lower lobe atelectasis. These findings are more prominent than on the prior study. Small pleural effusions. Small infiltrates are also present right base. IMPRESSION: Interval worsening of the left lung base. Electronically signed by Quincy Ward 12/06/2018 6:59 AM
[2018-12-06 07:26] LABS: BASO# 0.03 X1000 (0.0-0.2); BASO% 0.5 % (0.0-0.8); EOS# 0.33 X1000 (0.0-0.7); EOS% 5.1 % (0.0-10.0); HEMATOCRIT 32.8 % (42.0-52.0); HEMOGLOBIN 10.6 g/dL (14.0-18.0); IMM GRAN# 0.02 X1000 (0.0-0.04); IMM GRAN% 0.3 % (0.0-0.5); LYMPH# 0.44 X1000 (1.2-3.4); LYMPH% 6.7 % (20.5-51.1); MCH 29.8 PG (27-31); MCHC 32.3 g/dL (33-37); MCV 92.1 FL (81-99); MONO# 0.71 X1000 (0.11-0.59); MONO% 10.9 % (1.7-9.3); MPV 9.9 FL (7.4-10.4); NEUT# 4.99 X1000 (1.4-6.5); NEUT% 76.5 % (42.2-75.2); PLT 167 X1000 (130-400); RBC 3.56 XMIL (4.7-6.1); RDW 16.1 % (11.5-14.5); WBC 6.52 X1000 (4.8-10.8)
--- NOTE | 2018-12-06 07:34 | EKG Report ---
Test Performed on : 12/04/2018 06:31:03 AM Test Reason : afib Blood Pressure : / mmHG Vent. Rate : 098 BPM Atrial Rate : 079 BPM P-R Int : 000 ms QRS Dur : 102 ms QT Int : 394 ms P-R-T Axes : 000 111 149 degrees QTc Int : 503 ms Atrial fibrillation. with premature ventricular or aberrantly conducted complexes. Right axis deviation Incomplete right bundle branch block Possible Right ventricular hypertrophy ST elevation, consider inferior injury or acute infarct ACUTE AR / STEMI Consider right ventricular involvement in acute inferior infarct Abnormal ECG When compared with ECG of 03-DEC-2018 06:55, Previous ECG has undetermined rhythm, needs review Inverted T waves have replaced nonspecific T wave abnormality in Lateral leads Confirmed by Shell LIVINGSTON, Matt ([id number]) on 12/06/2018 8:59:58 AM
[2018-12-06 07:56] LABS: CALCIUM 8.1 mg/dL (8.8-10.2); CREATININE 1.9 mg/dL (0.7-1.2); POTASSIUM 3.7 mmol/L (3.5-5.1)
[2018-12-06 08:13] LABS: ALBUMIN 2.9 g/dL (3.5-5.0); CREATININE 1.9 mg/dL (0.7-1.2); PHOSPHORUS 3.5 mg/dL (2.7-4.5); POTASSIUM 3.8 mmol/L (3.5-5.1)
[2018-12-06] MEDS: PROTONIX IV SCH ×2 (10:33→17:57)
[2018-12-06] MEDS: PLAVIX PO SCH (10:34)
[2018-12-06] MEDS: ICAR-C PO SCH ×2 (10:34→21:26)
[2018-12-06] MEDS: ALDACTONE PO SCH ×2 (10:34→21:26)
[2018-12-06] MEDS: ROCEPHIN 2 GM in NS 50 ML IV SCH (10:34)
[2018-12-06] MEDS: COLCRYS PO SCH (10:34)
[2018-12-06] MEDS: CENTRUM SILVER PO SCH (10:34)
[2018-12-06] MEDS: LASIX PO SCH ×2 (10:34→21:25)
[2018-12-06] MEDS: COREG PO SCH ×2 (10:34→21:26)
[2018-12-06] MEDS: ELIQUIS PO SCH ×2 (10:34→21:26)
[2018-12-06] MEDS: LANOXIN IV SCH (10:35)
--- NOTE | 2018-12-06 12:12 | CARDIOLOGY PROGRESS NOTE ---
DATE: 12/06/2018 CHIEF COMPLAINT: Abdominal distention, dyspnea. SUBJECTIVE: Mr. Shelby is feeling better today. He has undergone paracentesis on 12/02 and they removed about 7.5 L of milky yellow fluid. The testing of that fluid showed that he had 8915 WBCs, 93% of them polynuclears and his procalcitonin level was significantly elevated per report at 14 ng/mL, the normal less than 0.15 indicating that he has some sort of sepsis/infection even though the culture has not grown anything. Right now, the patient is undergoing antibiotic therapy per Dr. Helm, ceftriaxone. The patient denies having any chest pain or abdominal pain at this time. He seems to be more comfortable. PHYSICAL EXAMINATION: Vital signs: Blood pressure 108/80, pulse 85, temperature 98.2, respiration 16. General: He is awake, chronically ill, no distress. HEENT: Unremarkable. Chest: Diminished breath sounds at the bases. Heart: Sounds irregularly irregular, soft systolic murmur noted. Abdomen: Distended with ascites. Extremities: Showed no significant edema. Neurologic Exam: Follows commands, moves all 4 extremities. BLOOD WORK: Hemoglobin 10.6, hematocrit 32.8. Sodium 138, potassium 3.8, BUN 39, creatinine 1.9. IMPRESSION: 1. Patient who has presented with abdominal distention, ascites, presumably case of spontaneous bacterial peritonitis. 2. Chronic atrial fibrillation. 3. Patient with severe coronary heart disease, previous acute myocardial infarction in the territory of right coronary artery with acute intervention, partial gnosticism of flow, ischemic cardiomyopathy. 4. 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 5. History of medical noncompliance. 6. Suspected chronic right ventricular systolic dysfunction. Cardiac cirrhosis seems to be a consequence of that. 7. Morbid obesity. 8. Obstructive sleep apnea syndrome. 9. Diabetes mellitus type 2. RECOMMENDATION: At this point in time, we will try to support him with diuretics, spironolactone, Lasix. Continue antiplatelet regimen and ideally once his infection clears I would like to obtain a cardiac MR to determine the extent of right ventricular scarring and from that point onwards consider referral to a transplant center for consideration of right ventricular assist device, which he may need at some point. With ongoing infection or suspicion of infection, we cannot do any implantation of any prosthetic device. We will follow him. cc: Bhupinder Fleming MD MTDD
--- NOTE | 2018-12-06 13:29 | GASTROENTEROLOGY PROGRESS NOTE ---
DATE: 12/06/2018 SUBJECTIVE: The patient is resting in bed. He is feeling better. He denies any new complaints. Denies any fevers, rigors, or chills. He denies any abdominal pain. PHYSICAL EXAMINATION: Vital Signs: Temperature 98.2 degrees, pulse rate of 70, respiratory rate of 16, blood pressure of 108/80, saturating 98% on room air. Body weight of 268 pounds and 1 ounce. General Appearance: Obese. Lying in bed, in no acute distress. HEENT: Pale conjunctivae. No icterus. Neck: Supple. Abdomen: Morbidly obese. Softer than before. No guarding. No rebound. Extremities: Bilateral lower extremity edema noted, chronic type. Neurologic: Alert, awake, and oriented x3. LABS: Hemoglobin and hematocrit are 10.6 and 32.8, white count of 6.5, platelet count of 167,000. Sodium of 138, potassium 3.8, chloride of 97, bicarb of 29, anion gap 13, BUN of 39, creatinine 1.9, glucose of 99, calcium is 8, phosphorus 3.5, albumin of 2.9. Fluid studies are showing no growth. Chest x-ray done today showed interval worsening of the left lung base. IMPRESSION AND PLAN: 1. Spontaneous bacterial peritonitis. He is on antibiotics. He will continue on ceftriaxone per the primary care team. 2. Anemia. He will continue on iron C twice a day and a multivitamin once a day. 3. Morbid obesity. Patient counseled to lose weight. 4. Gout. He is on colchicine. 5. History of coronary artery disease. He is on Plavix. 6. Congestive heart failure. He is on Lasix, digoxin, metoprolol per the primary care team. 7. Gastrointestinal prophylaxis with proton pump inhibitors. 8. Severe ischemic cardiomyopathy. Aware. 9. Mitral valve replacement. He is on Eliquis 5 mg by mouth twice a day. 10. The above plan was discussed with the patient. All questions were answered. Please call us with any further questions. cc: Rayray Art MD MTDD
--- NOTE | 2018-12-06 13:46 | NEPHROLOGY PROGRESS NOTE ---
DATE: 12/06/2018 SUBJECTIVE: The patient resting in bed. He has no complaints today. States he is continuing to void. OBJECTIVE: Vital Signs: Temperature 97.9 degrees, pulse 78, respiratory rate 20, blood pressure 111/58. Intake and output: Intake 120 mL. Output 1.4 L. General: This is an elderly gentleman, resting in bed. Awake and alert. No acute distress. HEENT: Normocephalic, atraumatic. JEFF. Conjunctivae pink. Neck: Supple without JVD. Cardiovascular: Regular rate and rhythm. No murmur. Pulmonary: Clear bilaterally. No increased work of breathing. Abdomen: Soft, round, nontender. Positive bowel sounds. Genitourinary: Voiding. Extremities: No clubbing, cyanosis. Trace edema. Integumentary: Skin is warm and dry. He has some erythema to the left arm. LABORATORY DATA: WBC of 6.5, hemoglobin 10.6. Sodium 138, potassium 3.8, CO2 of 28, creatinine 1.9. ASSESSMENT AND PLAN: Cardiorenal syndrome. We reduced his diuretics to 80 mg Lasix b.i.d. This continued to make excellent urine. His renal function has stabilized overnight. I will make no changes to his routine today. Recheck labs in the morning. Dictated by TATYANA Reyes for Eyad Villela MD Face to face encounter, data reviewed, discussed with German Liu on 12/06/18. I agree with the above assessment and plan of care. cc: Eyad Villela MD [facility]
--- NOTE | 2018-12-06 18:06 | INFECTIOUS DISEASE PROGRESS NO ---
DATE: 12/06/2018 PRESENT ILLNESS: The patient has spontaneous bacterial peritonitis. He also on x-ray appears to have a worsening left lower lobe pneumonia. MEDICATIONS: This is day 4 of treatment with Rocephin for the patient's peritonitis. PHYSICAL EXAMINATION: Vital Signs: Temperature is 97.8 degrees, pulse 85, respirations 14, blood pressure 105/68. General: This is an ill-appearing elderly male. He is in no acute distress. Head/eyes/ears/nose/throat: He can hear my spoken words and see near objects. He does not have any white patches on his tongue. He appears to have some scleral icterus also. Cardiovascular: Heart rate is regular. Abdomen: Soft and slightly tender. Neurologic: The patient is awake. He can move his extremities. There is no tremor. LAB AND X-RAY: CBC shows a white count of 6520, hemoglobin 10.6, and platelet count 167,000. The patient's creatinine is 1.9. The GFR is 36. The peritoneal fluid shows no growth. Blood culture showed no growth either. Chest x-ray from today shows worsening of the left lower lobe infiltrate. There are also some infiltrates on the right base as well. ASSESSMENT AND PLAN: The patient has spontaneous bacterial peritonitis. He also has left lower lobe pneumonia with some on the right side as well. The patient is receiving Rocephin primarily for the peritonitis but also for possible pneumonia. Since the pneumonia is worsening I went ahead and added Zyvox orally in case the patient's pneumonia is due to methicillin-resistant Staphylococcus aureus. COMORBIDITIES: Include the fact he is elderly, he also has diabetes mellitus, cirrhosis of the liver and lymphoma. He also has chronic kidney disease. cc: Cortez Helm MD
[2018-12-06] MEDS: ZYVOX PO SCH ×2 (18:40→21:27)
[2018-12-06] MEDS: BENADRYL PO PRN ×2 (21:26)
[2018-12-07] MEDS: HUMALOG SUBQ SCH ×5 (01:33→21:02)
[2018-12-07] MEDS: PROTONIX IV SCH ×2 (06:16→18:05)
[2018-12-07] MEDS: SODIUM CHLORIDE 0.9% INJ SCH ×2 (06:17→18:05)
[2018-12-07 07:36] LABS: ALBUMIN 2.7 g/dL (3.5-5.0); CALCIUM 8.4 mg/dL (8.8-10.2); CREATININE 1.9 mg/dL (0.7-1.2); PHOSPHORUS 3.7 mg/dL (2.7-4.5); POTASSIUM 3.6 mmol/L (3.5-5.1)
[2018-12-07] MEDS: ICAR-C PO SCH ×2 (08:59→21:02)
[2018-12-07] MEDS: ELIQUIS PO SCH ×2 (08:59→21:02)
[2018-12-07] MEDS: LASIX PO SCH ×2 (08:59→21:03)
[2018-12-07] MEDS: ZYVOX PO SCH ×2 (08:59→21:02)
[2018-12-07] MEDS: PLAVIX PO SCH (08:59)
[2018-12-07] MEDS: CENTRUM SILVER PO SCH (08:59)
[2018-12-07] MEDS: COREG PO SCH ×2 (08:59→21:02)
[2018-12-07] MEDS: COLCRYS PO SCH (08:59)
[2018-12-07] MEDS: ALDACTONE PO SCH (08:59)
[2018-12-07] MEDS: LANOXIN IV SCH (09:00)
[2018-12-07] MEDS: ROCEPHIN 2 GM in NS 50 ML IV SCH (09:01)
[2018-12-07] MEDS: NEOSPORIN OINTMENT TUBE TOP SCH (09:01)
--- NOTE | 2018-12-07 09:55 | DISCHARGE SUMMARY ---
ADMISSION DATE: 12/01/2018 DISCHARGE DATE: 12/07/2018 DISPOSITION: [facility]. FOLLOWUP: Followup will be with: 1. Dr. Christiano Sotelo. 2. Dr. Helm. CONSULTATIONS DURING THIS ADMISSION: 1. Infectious Disease was consulted. The patient was seen by Dr. Helm. 2. Cardiology was consulted. The patient was seen by Dr. Horton. INVASIVE PROCEDURES DURING THIS ADMISSION: Ultrasound-guided paracentesis was done by Dr. Carrillo, and 7.5 L of milky, yellow fluid was drained. Fluid analysis was consistent with peritonitis. ADMISSION DIAGNOSES: 1. Acute on chronic biventricular congestive heart failure. 2. Anasarca with significant ascites. 3. Atrial fibrillation, new onset. 4. History of mitral valve replacement. DISCHARGE DIAGNOSES: 1. Anasarca secondary to congestive heart failure. 2. Congestive heart failure with ejection fraction of 30% to 35%, in exacerbation on presentation, which is improved. 3. Severe ischemic cardiomyopathy noted. 4. 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 The patient is status post 7.5 liters of ascitic fluid removal. He is currently on Rocephin 2 grams. Today is day 3. I think the length of therapy will be about 5 to 10 days, pending final recommendations from Infectious Disease. 5. Hypotension on presentation, improved. 6. Obesity with obesity hypoventilation syndrome and sleep apnea. 7. Generalized weakness. 8. Chronic kidney disease stage IIIB, likely cardiorenal in etiology. DISCHARGE MEDICATIONS: 1. Clopidogrel 75 mg daily. 2. Omeprazole 20 mg daily. 3. Furosemide 80 mg b.i.d. 4. Spironolactone 50 mg p.o. every a.m. 5. Eliquis 5 mg b.i.d. 6. Carvedilol 3.125 b.i.d. 7. Colchicine 0.6 p.o. daily. 8. Digoxin 125 mcg p.o. daily. 9. Spironolactone 25 mg daily. PRESENTING COMPLAINT: Shortness of breath. HISTORY OF PRESENT COMPLAINT: Mr. Shelby is a 68-year-old gentleman who has history of biventricular heart failure, predominantly right side, also ischemic cardiomyopathy, obstructive sleep apnea, obesity, CKD, who came to the emergency department because of fluid overload-related symptoms. The patient was evaluated, found to be also in atrial fibrillation, was admitted for further medical care. HOSPITAL COURSE: Mr. Shelby was initially started on adequate IV diuresis. His abdomen continues to be hurting, so a paracenteses was ordered. A large-volume paracentesis was done by IR, and 7.5 L was removed. Subsequently, the fluid analysis was consistent with spontaneous bacterial peritonitis. The patient was started on IV antibiotics. Infectious Disease was consulted. GI was consulted. Cardiology was also consulted. The patient was seen by all subspecialties. During the hospital course, Mr. Shelby continued to improve on a daily basis. Medications were adjusted on a daily basis. Today, he feels a lot better. Will be notified that there is a bed available for him at [facility]. However, it is late today, so we are going to discharge him first thing in the morning. I have spoken with the Infectious Disease specialist about the length of therapy for the SBP, and he plans to treat this for 5 days. Mr. Shelby will have 2 more days left, which he will continue in the rehab facility. His current vitals have also been reviewed. Blood pressure is 105/68, pulse is 85, respirations are 14, temperature is 98.8 degrees. Physical exam is unchanged. He still has a protuberant abdomen with fluid shift, and about 1+ to 2+ pedal edema. The patient is on diuretic therapy, and will continue as ordered by both Cardiology and Nephrology. Mr. Shelby is fairly stable for discharge today. We will review him briefly tomorrow, and make sure that he is okay to go. TIME SPENT: Time spent for discharge was 36 minutes. cc: MD Dr. Volodymyr Sanchez MD William D. Denney, MD Luis N. Villanueva, MD [facility] Dr. Christiano Sotelo
--- NOTE | 2018-12-07 10:12 | PROVIDER PROGRESS NOTE ---
Progress Note SUBJECTIVE: OBJECTIVE: Last Vital Signs Temp 97.8 F 12/07/18 07:26 Pulse 86 12/07/18 09:00 Resp 16 12/07/18 07:26 BP 88/51 12/07/18 07:30 Pulse Ox 97 12/07/18 08:36 Height 5 ft 10 in Weight 265 lb 8 oz GEN: awake, alert, NAD HEENT: anicteric, MMM NECK: supple, +JVD CV: RRR, no murmurs CTAB: CTA anteriorly b/l ABD: obese, soft NT, NABS, difficult to appreciate ascites given habitus EXT: 2+ pitting edema NEURO: nonfocal, no asterixis LABS: 12/07/18 06:40 Sodium 136 Potassium 3.6 Chloride 98 Carbon Dioxide 27 BUN 36 H Creatinine 1.9 H Glucose 106 H Albumin 2.7 L A/P: Mr. Pradip Shelby is a 68-year-old man with history of duodenal lymphoma in remission, morbid obesity, ICM with EF 30%, HUMBERTO, CKD3, history duodenal lymphoma, and morbid obesity who was admitted with acute systolic CHF exacerbation found to have cardiac +/-CORRAL cirrhosis with ascites and SBP. He is s/p LVP with removal of 7.5L of high SAAG and high protein ascites consistent with cardiac ascites. He is currently on CTX with improvement. He is tolerating diuresis with lasix and aldactone and he has lost a documented 20 pounds since admission. #Decompensated cardiac/CORRAL cirrhosis - Ascites: continue diuretics with lasix 80mg BID; titrate aldactone to 100mg daily, low Na diet, I/O, daily weights - EV: last EGD in 2007; will need EGD as outpatient for varices screening - HCC: no HCC in imaging; repeat US every 6 months to evaluate for hepatoma - PSE: none prior - OLT: not a candidate for transplant #SBP: on CTX: continue for 5-7 days of treatment; then can start ciprofloxacin 500mg PO daily for SBP ppx #Anemia: stable: continue iron/vitamin C; history of folate deficiency; will start folic acid 1mg daily #CHF: diuresis as per primary team #CKD: Cr stable; renally dose meds Will follow with you
--- NOTE | 2018-12-07 11:57 | NEPHROLOGY PROGRESS NOTE ---
DATE: 12/07/2018 SUBJECTIVE: He is without complaints today. No shortness of breath, nausea, or vomiting. OBJECTIVE: Vital Signs: Blood pressure 119/77, heart rate 70, respirations 16, afebrile. Intake not recorded. Output 1.6 L. Physical Examination: General: No acute distress. Skin is warm and dry. HEENT: Conjunctivae are pink. Neck: Neck veins are not distended. Cardiovascular: Heart is regular. No gallops. Respiratory: Lungs are equal. No crackles. Abdomen: Soft, obese, nontender. Bowel sounds present. Extremities: With 1+ edema around the hips, none in the legs. IMPRESSION: Chronic kidney disease. He is at his historical baseline. He is euvolemic by exam and he is taking oral diuretics. Electrolytes and acid-base are in target. We will arrange for him to follow up in our office after discharge. Otherwise, we will sign off. Please feel free to contact us if we can be of further assistance. cc: Eyad Villela MD
--- NOTE | 2018-12-07 14:42 | PROGRESS NOTE ---
DATE: 12/07/2018 Came in with shortness of breath. This is a 68-year-old history of biventricular heart failure, mitral valve disorder, ischemic cardiomyopathy, obstructive sleep apnea, morbid obesity, chronic kidney disease. Was recently in the emergency room with increasing edema, anasarca, shortness of breath with a history of coronary artery disease having stents placed in the right coronary artery, ischemic cardiomyopathy, ejection fraction 30-35%, has mitral valve disorder and mitral valve replacement 2009 and then transcutaneous mitral valve replacement early in 2018. Has a history of pulmonary hypertension so was admitted with acute on chronic biventricular congestive heart failure, anasarca, atrial fibrillation, ischemic cardiomyopathy, mitral valve disorder, coronary artery disease. Today he reports he is doing better resting comfortably, appears to be breathing comfortably. He reports he is eating pretty good and he had uneventful night. Temperature 98 degrees, pulse 70, respirations 16, blood pressure 119/77/. Pupils are equal, round.Lungs: Are clear in all lung harden . Cardiovascular: Regular rhythm, rate without murmur or S3. Abdomen: Soft. Skin: Is warm and dry. Urine output was 2600 mL. Blood sugar 215, 112, 194. ASSESSMENT/PLAN: 1. Acute on chronic biventricular congestive heart failure predominantly right-sided failure associated with anasarca and ascites. The patient is status post paracentesis. 2. Abnormal ascites fluid suggesting subacute bacteremia or bacterial peritonitis treating with antibiotics. 3. Mitral valve disorder with previous mitral valve replacement recently had transcutaneous mitral valve replacement. 4. Atrial fibrillation rate controlled. 5. Ischemic cardiomyopathy with left ventricular ejection fraction 30-35%. 6. Atherosclerotic coronary artery disease. 7. Moderate aortic stenosis with trace aortic regurgitation. 8. Moderate pulmonary hypertension with right ventricular dysfunction. 9. Obstructive sleep apnea. 10. Obesity. 11. Hypertension. 12. Diabetes mellitus type 2, sugars under good control. 13. Acute on chronic renal disease. 14. Cirrhosis suspected. Continue present orders. His volume status may be improving. He is on Zyvox 600 mg p.o. q.12, Eliquis 5 mg b.i.d., Coreg 3.125 mg b.i.d., Plavix 75 mg a day, Colcrys 0.6 mg q.a.m., digoxin 125 mcg IV daily, folic acid 1 mg daily, Lasix 80 mg p.o. b.i.d., iron carbinol 1 p.o. b.i.d., multivitamin 1 a day, Protonix 40 mg IV q.12, ceftriaxone 2 g IV daily, spironolactone 100 mg p.o. daily, sennoside docusate 1 b.i.d. p.r.n. cc: Len Johnson MD
[2018-12-08] MEDS: HUMALOG SUBQ SCH ×4 (06:28→21:16)
[2018-12-08] MEDS: PROTONIX IV SCH ×2 (06:36→18:41)
[2018-12-08] MEDS: SODIUM CHLORIDE 0.9% INJ SCH (06:36)
--- NOTE | 2018-12-08 06:53 | Diag Imaging Result Doc PS360 ---
EXAM: CHEST-PORTABLE HISTORY: pneumonia TECHNIQUE: Portable chest single view COMPARISON: 12/06/2018 FINDINGS: Heart remains enlarged. There is basilar infiltrates as well as atelectasis in the left base. There are also small pleural effusions. The overall appearance of the chest is fairly similar to that of the prior exam. IMPRESSION: Stable chest. Electronically signed by Quincy Ward 12/08/2018 6:50 AM
[2018-12-08 07:39] LABS: ALBUMIN 2.9 g/dL (3.5-5.0); CALCIUM 8.6 mg/dL (8.8-10.2); PHOSPHORUS 3.4 mg/dL (2.7-4.5); POTASSIUM 4.1 mmol/L (3.5-5.1)
[2018-12-08] MEDS: ICAR-C PO SCH ×2 (09:27→20:30)
[2018-12-08] MEDS: LASIX PO SCH (09:27)
[2018-12-08] MEDS: CENTRUM SILVER PO SCH (09:27)
[2018-12-08] MEDS: COREG PO SCH ×2 (09:27→20:30)
[2018-12-08] MEDS: ZYVOX PO SCH ×2 (09:27→20:30)
[2018-12-08] MEDS: FOLIC ACID PO SCH (09:27)
[2018-12-08] MEDS: LANOXIN IV SCH (09:27)
[2018-12-08] MEDS: COLCRYS PO SCH (09:27)
[2018-12-08] MEDS: NEOSPORIN OINTMENT TUBE TOP SCH (09:28)
[2018-12-08] MEDS: BENADRYL PO PRN (09:28)
[2018-12-08] MEDS: PLAVIX PO SCH (09:28)
[2018-12-08] MEDS: ELIQUIS PO SCH ×2 (09:28→20:30)
[2018-12-08] MEDS: ALDACTONE PO SCH (09:28)
[2018-12-08] MEDS: ROCEPHIN 2 GM in NS 50 ML IV SCH (09:30)
--- NOTE | 2018-12-08 10:01 | PROVIDER PROGRESS NOTE ---
Progress Note SUBJECTIVE: No acute overnight events. Patient has no complaints this AM OBJECTIVE: Last Vital Signs Temp 98.2 F 12/08/18 07:31 Pulse 73 12/08/18 09:27 Resp 20 12/08/18 07:31 BP 93/42 12/08/18 07:32 Pulse Ox 98 12/08/18 07:54 Height 5 ft 10 in Weight 264 lb 1 oz GEN: awake, alert, NAD HEENT: anicteric, MMM NECK: supple, +JVD CV: RRR, no murmurs CTAB: CTA anteriorly b/l ABD: obese, soft NT, NABS, difficult to appreciate ascites given habitus EXT: 2+ pitting edema NEURO: nonfocal, no asterixis LABS: 12/08/18 06:45 Sodium 140 Potassium 4.1 Chloride 98 Carbon Dioxide 31 Anion Gap 11 BUN 36 H Creatinine 2.0 H Glucose 117 H A/P: Mr. Pradip Shelby is a 68-year-old man with history of duodenal lymphoma in remission, morbid obesity, ICM with EF 30%, HUMBERTO, CKD3, history duodenal lymphoma, and morbid obesity who was admitted with acute systolic CHF exacerbation found to have cardiac +/-CORRAL cirrhosis with ascites and SBP. He is s/p LVP with removal of 7.5L with ascitic fluid revealing high SAAG and high protein ascites consistent with cardiac ascites. He is currently on day 6 of antibiotics for SBP. He is tolerating diuresis with lasix and aldactone, and he has lost a documented 21 pounds since admission. #Decompensated cardiac/CORRAL cirrhosis - Ascites: continue diuretics with lasix 80mg BID; aldactone to 100mg daily, low Na diet, I/O, daily weights - EV: last EGD in 2007; will need EGD as outpatient for varices screening - HCC: no HCC in imaging; repeat US every 6 months to evaluate for hepatoma - PSE: none prior - OLT: not a candidate for transplant #SBP: on CTX: continue for 5-7 days of treatment; then can start ciprofloxacin 500mg PO daily for SBP ppx #PNA: on Linezolid as per ID recommendations #Anemia: stable: no overt bleeding; continue iron/vitamin C; history of folate deficiency; cont folic acid 1mg daily #CHF: diuresis as per primary team #CKD: Cr stable; renally dose meds Will sign off. Patient should follow-up with me as outpatient in 2-4 weeks. Please call with questions.
--- NOTE | 2018-12-08 10:52 | PROGRESS NOTE ---
DATE: 12/08/2018 SUBJECTIVE: Patient continues without chest discomfort or dyspnea. Denies any pain. He reports feeling well overall. OBJECTIVE: Vital Signs: Blood pressure 93/42, heart rate 69, oxygen saturation 98% on nasal cannula oxygen. Neck: Jugular venous distention evident, suggesting some elevation in central venous pressure. Chest: Clear to auscultation bilaterally. Cardiac: Examination reveals an irregular rate and rhythm without appreciable gallop. Abdomen: Nondistended, without detectable fluid wave. Extremities: Demonstrate edema, more so on the distal left lower extremity with chronic venous stasis changes. Laboratory Data: Includes sodium 140, potassium 4.1, chloride 98, carbon dioxide 31, BUN 36, creatinine 2.0, glucose 117, albumin 2.9. IMPRESSION: 1. Acute on chronic systolic heart failure, biventricular with predominantly right-sided heart failure, and associated anasarca and ascites. 2. Atrial fibrillation. 3. Suspected spontaneous bacterial peritonitis. 4. 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 5. Severe coronary artery disease with previous myocardial infarction in the distribution of the right coronary artery with acute intervention. The patient has moderate ischemic cardiomyopathy. 6. Cirrhosis, probably related to chronic hepatic congestion/congestive heart failure. 7. Morbid obesity. 8. Type 2 diabetes mellitus. 9. Chronic kidney disease. RECOMMENDATIONS: 1. Continue current diuretic regimen with Lasix 80 mg p.o. b.i.d. He appears to be diuresing with current regimen. 2. Check digoxin level. 3. Consider future use of metolazone as needed. cc: Santo Horton MD
--- NOTE | 2018-12-08 14:01 | PROGRESS NOTE ---
DATE: 12/08/2018 SUBJECTIVE: Ms. Shelby is breathing better. He feels like he is doing better and is asking about when he can go home. He remains afebrile. OBJECTIVE: Temperature 97.9 degrees, pulse 70, respirations 20, blood pressure 98/59. Pupils are equal and round. Lungs are clear in all lung harden. Cardiovascular exam has regular rhythm and rate without murmur or S3. Abdomen is soft. Skin is warm and dry. URINE OUTPUT: 2500 mL. ASSESSMENT AND PLAN: 1. Acute on chronic systolic heart failure, biventricular, predominantly right-sided heart failure associated with anasarca and ascites. Seems to be diuresing fairly well. 2. Atrial fibrillation. Rate is controlled. 3. Suspected spontaneous subacute bacterial peritonitis. This improved. 4. Mitral valve disorder with previous mitral valve replacement followed by thrombosis of the prosthetic mitral valve and thereafter stenosis of the prosthetic mitral valve requiring transmitral valve replacement, successfully accomplished 1 month ago in [place]. 5. Severe coronary artery disease with previous myocardial infarction in distribution of the right coronary artery. The patient has moderate ischemic cardiomyopathy. 6. Cirrhosis. Aware. 7. Morbid obesity. 8. Type 2 diabetes mellitus. 9. Chronic kidney disease. Seems to be improving. Looking for discharge plans. I am waiting on eligibility./ DIAGNOSTIC STUDIES: Electrolytes from this morning sodium 140, potassium 4.1, chloride 98. BUN 36, creatinine 2.0. Blood sugars 163, 145, 117, 160. cc: Len Johnson MD
--- NOTE | 2018-12-08 19:45 | INFECTIOUS DISEASE PROGRESS NO ---
DATE: 12/08/2018 PRESENT ILLNESS: The patient has spontaneous bacterial peritonitis. He also appears to have developed a bilateral lower lobe pneumonia with small pleural effusions as well. MEDICATIONS: This is the fifth day of treatment with Rocephin and the second day of treatment with Zyvox. PHYSICAL EXAMINATION: Vital Signs: Temperature is 97.8, pulse 66, respirations 20, blood pressure 101/53. General: This is an ill-appearing elderly male. He is obese. He is in no acute distress. Head, Eyes, Ears, Nose and Throat: He can hear my spoken words and see near objects. He does not have any white coating of his tongue. Neck: There is no pain when he moves his head. Lungs: Clear to auscultation. Cardiovascular: Heart rate is regular. Abdomen: Soft, but not tender tonight. Neurologic: Patient is awake. He can move his extremities. There is no tremor. LAB AND X-RAY: The chest x-ray shows bibasilar infiltrates and atelectasis and pleural effusions. Creatinine is 2. GFR is 34. There is no new CBC for today. ASSESSMENT AND PLAN: The patient has spontaneous bacterial peritonitis which I think he is over with. However, he may have developed a superimposed bibasilar pneumonia. My plan is to continue Zyvox and discontinue Rocephin and placed the patient on cefepime. Both the cefepime and Zyvox are meant to treat the patient's presumed pneumonia. COMORBIDITIES: In this patient include he is elderly and he is a diabetic. He has cirrhosis of the liver and he also has lymphoma. He also has chronic kidney disease. cc: Cortez Helm MD
[2018-12-08] MEDS: MAXIPIME 2 GM in NS 100 ML IV SCH (20:30)
[2018-12-09] MEDS: HUMALOG SUBQ SCH ×4 (05:54→21:12)
--- NOTE | 2018-12-09 07:16 | Diag Imaging Result Doc PS360 ---
EXAM: CHEST-1 VIEW 12/09/2018 HISTORY: pneumonia TECHNIQUE: AP portable at 0533 COMMENT: Compared to 12/08/2018 there has been some improvement in the basilar opacities, and portions of the left hemidiaphragm are now visible. There is still some alveolar opacity in the right lower lobe and interstitial opacity generally. The heart size is enlarged. IMPRESSION: Improved pneumonia versus pulmonary edema. Electronically signed by Gilbert Carrillo 12/09/2018 7:14 AM
[2018-12-09 07:42] LABS: EOS% 4.2 % (0.0-10.0); HEMATOCRIT 33.7 % (42.0-52.0); HEMOGLOBIN 10.8 g/dL (14.0-18.0); LYMPH% 5.7 % (20.5-51.1); MCH 29.8 PG (27-31); MCV 93.1 FL (81-99); MONO% 8.7 % (1.7-9.3); MPV 9.2 FL (7.4-10.4); NEUT% 80.3 % (42.2-75.2); PLT 219 X1000 (130-400); RBC 3.62 XMIL (4.7-6.1); RDW 16.2 % (11.5-14.5); WBC 6.46 X1000 (4.8-10.8)
[2018-12-09 07:43] LABS: BASO# 0.03 X1000 (0.0-0.2); BASO% 0.5 % (0.0-0.8); EOS# 0.27 X1000 (0.0-0.7); IMM GRAN# 0.04 X1000 (0.0-0.04); IMM GRAN% 0.6 % (0.0-0.5); LYMPH# 0.37 X1000 (1.2-3.4); MONO# 0.56 X1000 (0.11-0.59); NEUT# 5.19 X1000 (1.4-6.5)
[2018-12-09 08:01] LABS: ALBUMIN 2.9 g/dL (3.5-5.0); CALCIUM 8.7 mg/dL (8.8-10.2); CREATININE 1.8 mg/dL (0.7-1.2); PHOSPHORUS 3.3 mg/dL (2.7-4.5)
[2018-12-09] MEDS: SODIUM CHLORIDE 0.9% INJ SCH ×2 (09:19→21:14)
[2018-12-09] MEDS: LANOXIN IV SCH (09:19)
[2018-12-09] MEDS: PROTONIX IV SCH ×2 (09:19→21:14)
[2018-12-09] MEDS: ICAR-C PO SCH ×2 (09:20→21:14)
[2018-12-09] MEDS: COREG PO SCH ×2 (09:20→21:14)
[2018-12-09] MEDS: MAXIPIME 2 GM in NS 100 ML IV SCH ×2 (09:20→21:14)
[2018-12-09] MEDS: COLCRYS PO SCH (09:20)
[2018-12-09] MEDS: ALDACTONE PO SCH (09:20)
[2018-12-09] MEDS: PLAVIX PO SCH (09:20)
[2018-12-09] MEDS: ZYVOX PO SCH ×2 (09:20→21:14)
[2018-12-09] MEDS: CENTRUM SILVER PO SCH (09:20)
[2018-12-09] MEDS: FOLIC ACID PO SCH (09:20)
[2018-12-09] MEDS: ELIQUIS PO SCH ×2 (09:20→21:14)
[2018-12-09] MEDS: NEOSPORIN OINTMENT TUBE TOP SCH (09:21)
--- NOTE | 2018-12-09 11:04 | GASTROENTEROLOGY PROGRESS NOTE ---
DATE: 12/09/2018 SUBJECTIVE: He is resting in bed. He is feeling better. Denies any new complaints. Denies any fevers, rigors, chills. He denies any abdominal pain. OBJECTIVE: Vital signs: Temperature 97.9, pulse of 69, respiratory rate 15, blood pressure 116/55, saturating 96% on 4 L nasal cannula. Body weight of 262 pounds 7 ounces. BMI of 37.7 General Appearance: Morbidly obese, lying in bed, in no acute distress. HEENT: Mild pallor. No icterus. Neck: Supple. Abdomen: Obese body wall. Positive obesity. No guarding or rebound. Extremities: Bilateral lower extremity chronic edema noted. Neurologic: Alert, awake, and oriented x3. DIAGNOSTIC DATA: Hemoglobin and hematocrit 10.8 and 33.7, white count of 6.46, platelet count of 219,000. Sodium of 140, potassium 4, chloride 99, bicarb 20. Anion gap 13. BUN of 34.1. Blood glucose of 124. Calcium is 8.7, phosphorus is 3.3, albumin of 2.9. Peritoneal fluid culture is negative for routine culture and anaerobic culture. Blood culture negative x2 after 5 days, from 12/01/2018. Chest x-ray done today showed improved pneumonia versus pulmonary edema. IMPRESSION AND PLAN: 1. Decompensated cardiac/CORRAL cirrhosis. We will continue on diuretics as per the cardiology team. We will continue on a low sodium diet and daily weights. Restrict free fluid to less than 1.5 L per 24 hours. 2. Spontaneous bacterial peritonitis. He is on antibiotics. He needs to be switched to ciprofloxacin 500 mg once daily after discharge for SBP prophylaxis. 3. Pneumonia. He is on linezolid per Infectious Disease. 4. Anemia. His hematocrit is stable. We will continue Iron C b.i.d. and folate 1 mg every day. 5. Congestive heart failure. Being managed by the cardiology team. He is diuresing well. 6. Chronic kidney disease. Creatinine is stable. 7. History of duodenal lymphoma in the past, aware. At some point, he will need repeat EGD as an outpatient. 8. Morbid obesity. Patient counseled to lose weight. 9. Gastrointestinal prophylaxis with Protonix twice daily. 10. Bowel regimen. Jessica-Colace. 11. Also, watch for signs of internal bleeding as the patient is on Eliquis 5 mg p.o. b.i.d. and Plavix once daily. On discharge, he will continue on Protonix once daily. 12. Mitral valve replacement. He is on Eliquis twice daily. 13. Severe ischemic cardiomyopathy. Aware. He is on Plavix once daily. The above plan was discussed with the patient and all questions answered. Please call us with any further questions. We will sign off at this time. cc: MD Dr. Christiano Meng
--- NOTE | 2018-12-09 13:29 | PROGRESS NOTE ---
DATE: 12/09/2018 SUBJECTIVE: Mr. Shelby is feeling better. He is stronger, eating well, breathing comfortably. OBJECTIVE: Temperature 97.9 degrees, pulse 70, respirations 16, blood pressure 119/64. Pupils are equal and round. Lungs are clear in all lung harden. Cardiovascular Examination: Regular rhythm and rate without murmur or S3. Abdomen is soft. Skin is warm and dry. Urine output was 2500 mL. ASSESSMENT AND PLAN: 1. Acute on chronic systolic heart failure, biventricular, predominantly right-sided, associated with anasarca and ascites. Seems to be doing better. 2. Atrial fibrillation. Rate has been controlled. 3. Suspected spontaneous subacute bacterial peritonitis, which I think has been treated. 4. Mitral valve disorder. Previous mitral valve replacement, followed by thrombosis of the prosthetic mitral valve and thereafter, stenosis of the prosthetic mitral valve requiring transmitral valve replacement, successfully accomplished in [place] about a month ago. 5. Severe coronary artery disease, previous myocardial infarction in the right coronary artery distribution. 6. Cirrhosis. 7. Morbid obesity. 8. Type 2 diabetes mellitus. Sugar is under good control. 9. Chronic kidney disease. 10. Blood sugars look good. I think we can try and get him ready to go to [facility]. We will make sure his antibiotics are set up and try and set him up for that in the morning. We will discuss with Dr. Helm. cc: Len Johnson MD
[2018-12-09] MEDS ORDERED: LASIX IV ONE (15:02)
--- NOTE | 2018-12-09 15:19 | PROGRESS NOTE ---
DATE: 12/09/2018 SUBJECTIVE: Patient denies shortness of breath or chest discomfort on room air. OBJECTIVE: Vital Signs: Blood pressure 119/64, heart rate 73, oxygen saturation 98%. Neck: Jugular venous distention is evident, consistent with elevated central venous pressure. Chest: Clear to auscultation. Cardiac: Reveals an irregular rate and rhythm without appreciable murmur or gallop. Extremities: Demonstrate mild pretibial edema, more so of the left lower extremity. LABORATORY DATA: Includes a white blood cell count 6.46, hematocrit 33.7, hemoglobin 10.8, platelet count 219,000. Sodium 140, potassium 4.0, chloride 99, carbon dioxide 28, BUN 34, creatinine 1.8, glucose 124. Digoxin level is 0.9. IMPRESSIONS: 1. Acute on chronic systolic heart failure, predominantly right-sided, associated anasarca and ascites. Patient is improving. 2. Atrial fibrillation. 3. Suspected spontaneous bacterial peritonitis. 4. Mitral valve disorder. 5. Atherosclerotic coronary disease with previous myocardial infarction in the distribution of right coronary artery. Patient has moderate ischemic cardiomyopathy. 6. Cirrhosis. 7. Morbid obesity. 8. Type 2 diabetes mellitus. 9. Chronic kidney disease. RECOMMENDATIONS: Patient still manifests signs of volume overload. Will diurese further. cc: Santo Horton MD
--- NOTE | 2018-12-09 19:54 | INFECTIOUS DISEASE PROGRESS NO ---
DATE: 12/09/2018 PRESENT ILLNESS: The patient has been treated for spontaneous bacterial peritonitis. Now the patient is being treated for a presumptive bibasilar pneumonia with pleural effusion. MEDICATIONS: This is the second day of treatment with cefepime and the third day of treatment with Zyvox. PHYSICAL EXAMINATION: Vital Signs: Temperature is 98 degrees, pulse is 70, respirations are 15, blood pressure is 93/56. General: This is an obese, elderly male. He is in no acute distress. Head/eyes/ears/nose/throat: He can hear my spoken words and see near objects. He does not have any white patches on his tongue. Neck: There is no pain when he moves his head. Lungs: Clear to auscultation. Cardiovascular: Heart rate is regular. Abdomen: Soft but not tender. Neurologic: Patient is awake. He can move his extremities. He does not have a tremor. Extremities: Patient's legs are edematous, but they are not erythematous. LAB AND X-RAY: Chest x-ray shows improved bibasilar infiltrates with the differential being pneumonia and/or pulmonary edema. Blood and peritoneal fluid cultures are negative. ASSESSMENT AND PLAN: The patient has had treatment for spontaneous bacterial peritonitis. I think now the patient has pneumonia and/or pulmonary venous congestion. I plan to continue the patient's current antibiotics, and I have ordered a procalcitonin level to be drawn. COMORBIDITIES: The patient is elderly, and he is a diabetic. He has cirrhosis of the liver as well as lymphoma. He also has chronic kidney disease. cc: Cortez Helm MD
[2018-12-10] MEDS: HUMALOG SUBQ SCH ×4 (06:56→21:25)
[2018-12-10 07:59] LABS: ALBUMIN 2.9 g/dL (3.5-5.0); CALCIUM 8.8 mg/dL (8.8-10.2); CREATININE 1.7 mg/dL (0.7-1.2); PHOSPHORUS 3.5 mg/dL (2.7-4.5)
[2018-12-10] MEDS: MAXIPIME 2 GM in NS 100 ML IV SCH (10:41)
[2018-12-10] MEDS: PROTONIX IV SCH (10:42)
[2018-12-10] MEDS: COREG PO SCH ×2 (10:44→20:25)
[2018-12-10] MEDS: LASIX PO SCH (10:44)
[2018-12-10] MEDS: PLAVIX PO SCH (10:44)
[2018-12-10] MEDS: FOLIC ACID PO SCH (10:45)
[2018-12-10] MEDS: ICAR-C PO SCH ×2 (10:45→20:25)
[2018-12-10] MEDS: ALDACTONE PO SCH (10:45)
[2018-12-10] MEDS: COLCRYS PO SCH (10:45)
[2018-12-10] MEDS: CENTRUM SILVER PO SCH (10:45)
[2018-12-10] MEDS: LANOXIN IV SCH (10:45)
[2018-12-10] MEDS: ZYVOX PO SCH ×2 (10:45→20:25)
[2018-12-10] MEDS: ELIQUIS PO SCH ×2 (10:45→20:25)
--- NOTE | 2018-12-10 15:04 | PROGRESS NOTE ---
DATE: 12/10/2018 SUBJECTIVE: Mr. Shelby is feeling better, breathing better, stronger, eaten. He says his bowels are moving pretty good. OBJECTIVE: Vital signs: Temperature 97.6 degrees, pulse 69, respirations 16, blood pressure 101/51. HEENT: Pupils are equal round. Lungs: Clear in all lung harden. Cardiovascular: Regular rhythm and rate without murmur or S3. Abdomen: Soft. Skin: Warm and dry. Genitourinary: Urine output 2500. LABORATORY DATE AND TIME OF EXAM: Blood sugar 253, 102, 149. ASSESSMENT AND PLAN: 1. Spontaneous bacterial peritonitis. Being treated also for presumptive bibasilar pneumonia, pleural effusion. Continue treatment with cefepime. This is the 4th day with Zyvox. This is a I guess is the 4th day. 2. Acute on chronic systolic heart failure, probably right-sided associated she with anasarca and ascites, improving. 3. Atrial fibrillation, rate controlled. 4. Mitral valve disorder. 5. Atherosclerotic coronary artery disease, previous myocardial infarction distribution of the right coronary artery, moderate ischemic cardiomyopathy. 6. Cirrhosis. 7. Morbid obesity. 8. Diabetes mellitus type 2. Sugars under control. 9. Chronic kidney disease. I think the plan is to look for rehab facility. We will continue his current medications. I do not see any change. cc: Len Johnson MD
[2018-12-10] MEDS: MYCOSTATIN SUSP PO SCH ×2 (17:30→20:32)
[2018-12-10] MEDS: LOTRIMIN 1% CREAM TOP SCH ×2 (17:36→20:26)
[2018-12-10] MEDS: NEOSPORIN OINTMENT TUBE TOP SCH (17:36)
--- NOTE | 2018-12-10 17:59 | INFECTIOUS DISEASE PROGRESS NO ---
DATE: 12/10/2018 PRESENT ILLNESS: Mr. Shelby is being treated for spontaneous bacterial peritonitis. He has developed a pneumonia which seems to be improving at this point. There is also an oral candidiasis and candidal dermatitis to his to intertriginous areas. MEDICATIONS: He is on the 4th day of treatment with Zyvox 600 mg by mouth every 12 hours and the 3rd day of treatment with cefepime 2 g IV every 12 hours. PHYSICAL EXAM: Vital Signs: Temperature is 97.6 degrees, pulse rate 69, respiratory rate 16, blood pressure 101/51, O2 saturations 93% on room air. General: This is a chronically ill- appearing obese elderly gentleman, he is lying in the bed currently in no acute distress. HEENT: Atraumatic, normocephalic. Oral mucous membranes are mildly erythematous and he is complaining of burning pain to his tongue. Conjunctiva are pink. Neck: Supple. Trachea is midline. Cardiovascular: Irregularly irregular. Respiratory: Lung sounds are clear in the upper lobes. Diminished in the bases. Abdomen: Soft, obese and nontender. Bowel sounds are active. Extremities: There is 1 to 2+ pretibial edema bilaterally. Neurologic: He is awake, alert and oriented. LABORATORY AND X-RAY: No CBC today but his creatinine is 1.7, GFR 41. No imaging reports today. ASSESSMENT AND PLAN: Mr. Shelby is being treated for spontaneous bacterial peritonitis as well as a pneumonia. The plan for now is to continue his Zyvox and cefepime as ordered. There is also a candidal dermatitis to some of his intertriginous areas, specifically left groin and right back area. I have ordered clotrimazole cream to these areas twice a day. He also is complaining of burning to his tongue with some erythema noted, so we will also give him nystatin swish and swallow 4 times a day. These plans have been discussed with and recommended by Dr. Helm. COMORBIDITIES: Include that he is elderly and obese with diabetes mellitus, cirrhosis of the liver, lymphoma and chronic kidney disease. Dictated by TATYANA Medina for Cortez Helm MD cc: Cortez Helm MD [facility] LAK[facility] HEALTH SYSTEMAbbie
--- NOTE | 2018-12-10 23:38 | PROGRESS NOTE ---
DATE: 12/10/2018 SUBJECTIVE: Patient continues without shortness of breath or chest discomfort. He reports continued progression towards feeling better. OBJECTIVE: Vital Signs: Blood pressure 108/61, heart rate 67, oxygen saturation 98% on nasal cannula oxygen. Neck: Jugular venous distention appears to be improving. Jugular venous pressure appears to be only mildly increased at this point. Chest: Clear to auscultation. Cardiac: Reveals an irregular rate and rhythm without appreciable murmur or gallop. Abdomen: Nontender. Extremities: Demonstrate mild pretibial edema, more so in the distal left lower extremity. LABORATORY DATA: Includes sodium 137, potassium 4.0, chloride 99, carbon dioxide 28, BUN 31, creatinine 1.7. Glucose 101, albumin 2.9. IMPRESSION: 1. Acute on chronic systolic heart failure, predominantly right-sided with associated anasarca and ascites. Patient progressively improving. 2. Atrial fibrillation. 3. Suspected spontaneous bacterial peritonitis. 4. Mitral valve disorder. 5. Atherosclerotic coronary disease with previous myocardial infarction in distribution of right coronary artery. Patient has moderate ischemic cardiomyopathy. 6. Cirrhosis. 7. Morbid obesity. 8. Type 2 diabetes mellitus. 9. Chronic kidney disease. RECOMMENDATIONS: 1. Continue diuresis with intravenous Lasix. 2. Probable transition to oral Lasix over the weekend, possibly Thursday. 3. Anticipate patient very well may be improved sufficiently to go [facility] Thursday or Thursday. cc: Santo Horton MD
[2018-12-11] MEDS: MAXIPIME 2 GM in NS 100 ML IV SCH ×2 (01:32→15:50)
[2018-12-11] MEDS: PROTONIX IV SCH ×2 (01:32→15:50)
[2018-12-11] MEDS: TYLENOL PO PRN (01:49)
[2018-12-11] MEDS: HUMALOG SUBQ SCH ×4 (06:17→21:12)
[2018-12-11] MEDS: ZYVOX PO SCH ×2 (10:38→20:02)
[2018-12-11] MEDS: LANOXIN IV SCH (10:38)
[2018-12-11] MEDS: MYCOSTATIN SUSP PO SCH ×4 (10:38→20:02)
[2018-12-11] MEDS: CENTRUM SILVER PO SCH (10:39)
[2018-12-11] MEDS: ICAR-C PO SCH ×2 (10:39→20:01)
[2018-12-11] MEDS: FOLIC ACID PO SCH (10:39)
[2018-12-11] MEDS: COREG PO SCH ×2 (10:39→20:02)
[2018-12-11] MEDS: LASIX PO SCH (10:39)
[2018-12-11] MEDS: ELIQUIS PO SCH ×2 (10:39→20:01)
[2018-12-11] MEDS: COLCRYS PO SCH (10:39)
[2018-12-11] MEDS: PLAVIX PO SCH (10:39)
[2018-12-11] MEDS: ALDACTONE PO SCH (10:39)
[2018-12-11] MEDS: LOTRIMIN 1% CREAM TOP SCH ×2 (10:44→20:02)
--- NOTE | 2018-12-11 12:58 | PROGRESS NOTE ---
DATE: 12/11/2018 SUBJECTIVE: Mr. Shelby is feeling better, a little stronger, eating well. His bowels are moving. He remains afebrile. OBJECTIVE: Vitals: Temperature 97.8 degrees, pulse 50, respirations 17, blood pressure 122/68. HEENT: Pupils are equal and round. Lungs: Clear in all lung harden. Cardiovascular: Regular rhythm and rate without murmur or S3. Extremities: Feels like his abdomen and his legs are going down. He has 1+ edema, pitting edema, ankle to really to his knee. : Urine output was 1700 mL. ASSESSMENT AND PLAN: 1. Acute on chronic systolic heart failure, apparently right-sided, associated with anasarca and ascites. He is showing slow improvement. 2. Atrial fibrillation. Rate is controlled. 3. Suspect spontaneous bacterial peritonitis, which has been treated. Continue some oral antibiotics. 4. Mitral valve disorder. 5. Atherosclerotic coronary artery disease, previous myocardial infarction, distribution of the right coronary artery. He has moderate ischemic cardiomyopathy. 6. Cirrhosis. 7. Morbid obesity. 8. Diabetes mellitus, type 2. Sugar is under control. 9. Chronic kidney disease. His creatinine is 1.7, which has come down from 2.0 and was 2.2 back on the 4th, so continue present treatment. cc: Len Johnson MD
[2018-12-11] MEDS: NEOSPORIN OINTMENT TUBE TOP SCH (17:30)
[2018-12-12] MEDS: MAXIPIME 2 GM in NS 100 ML IV SCH ×2 (01:31→14:44)
[2018-12-12] MEDS: PROTONIX IV SCH ×2 (01:31→14:46)
[2018-12-12] MEDS: HUMALOG SUBQ SCH ×4 (06:09→22:21)
--- NOTE | 2018-12-12 07:47 | PROGRESS NOTE ---
DATE: 12/12/2018 SUBJECTIVE: Mr. Shelby had a pretty decent night. No complaints as far as breathing, abdominal pain. OBJECTIVE: Vital Signs: Temperature 97.8 degrees, pulse 77, respirations 20, blood pressure 104/59. HEENT: Pupils are equal and round. Lungs: Clear in all lung harden. Cardiovascular: Regular rhythm and rate without murmur or S3. Abdomen: Soft. Skin: Warm and dry. LABORATORY STUDIES: Urine output is 3500 mL. Blood sugar 121, 145, 117. ASSESSMENT AND PLAN: 1. Acute on chronic systolic heart failure right-sided predominance with anasarca. He has improved quite a bit with diuresis. 2. Atrial fibrillation, rate controlled. 3. Suspect spontaneous bacterial peritonitis. He has been treated. 4. Mitral valve disorder. 5. Atherosclerotic coronary artery disease, previous myocardial infarction in the distribution of right coronary artery. 6. Cirrhosis. 7. Morbid obesity. 8. Diabetes mellitus, type 2. 9. Chronic kidney disease. Creatinine has come down to 1.7 which is encouraging. Hematocrit 33, hemoglobin 10. I do not see any change in his orders. Hoping to get him to rehab. He would like to discuss this with , probably trying to go home with home health, but we will see where we are tomorrow. cc: Len Johnson MD
[2018-12-12] MEDS: PLAVIX PO SCH (08:58)
[2018-12-12] MEDS: COLCRYS PO SCH (08:58)
[2018-12-12] MEDS: CENTRUM SILVER PO SCH (08:58)
[2018-12-12] MEDS: LASIX PO SCH (08:58)
[2018-12-12] MEDS: FOLIC ACID PO SCH (08:58)
[2018-12-12] MEDS: COREG PO SCH ×2 (08:58→22:21)
[2018-12-12] MEDS: ALDACTONE PO SCH (08:58)
[2018-12-12] MEDS: ELIQUIS PO SCH ×2 (08:58→22:21)
[2018-12-12] MEDS: ICAR-C PO SCH ×2 (08:58→22:21)
[2018-12-12] MEDS: ZYVOX PO SCH ×2 (08:58→22:21)
[2018-12-12] MEDS: MYCOSTATIN SUSP PO SCH ×4 (09:00→22:21)
[2018-12-12] MEDS: LANOXIN IV SCH (09:10)
[2018-12-12] MEDS: NEOSPORIN OINTMENT TUBE TOP SCH (09:15)
--- NOTE | 2018-12-12 10:22 | CARDIOLOGY PROGRESS NOTE ---
DATE: 12/12/2018 CHIEF COMPLAINT: Swelling, dyspnea. SUBJECTIVE: Mr. Shelby continues to improve ever so slightly. He has a little more mobility. He seems to be losing weight. He is not having any pain. He lives with a BiPAP system and continues to void seemingly in a fairly good amount. His weight has gone down by probably 35 to 40 pounds since admission. OBJECTIVE: Blood pressure is 100/65, pulse 70, respirations 15, temperature 98.1. He is awake, alert, chronically ill. HEENT is unremarkable. Chest: Diffusely diminished breath sounds at the bases. Heart sounds are irregularly irregular. I do not hear any significant murmur. Abdomen is distended with ascites. No hepatomegaly noted. Extremities showed trace edema bilaterally, brawny. He has discoloration of both legs from chronic venostasis. Neurologic: Follows commands. Moves all 4 extremities. DIAGNOSTIC DATA: Sodium is 137, potassium 4.0, BUN is 31, creatinine 1.7. IMPRESSION: 1. The patient presented with decompensation of his chronic systolic and diastolic heart failure. 2. 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 3. Status post transmitral valve replacement. 4. Atrial fibrillation, persistent. 5. Morbid obesity and obstructive sleep apnea syndrome. 6. Chronic right ventricular systolic dysfunction. RECOMMENDATIONS: At this time, we will continue present course of action. He is on spironolactone 100 daily, low dose metoprolol, low dose digoxin, apixaban. We will continue to monitor. cc: Bhupinder Fleming MD
[2018-12-12] MEDS: LOTRIMIN 1% CREAM TOP SCH ×2 (10:55→22:22)
[2018-12-13] MEDS: HUMALOG SUBQ SCH ×4 (06:19→21:27)
--- NOTE | 2018-12-13 09:48 | GASTROENTEROLOGY PROGRESS NOTE ---
DATE: 12/13/2018 SUBJECTIVE: The patient is resting in bed. He is feeling better. Denies any complaints. He denies any fevers, rigors, chills. He is eating better. He is moving his bowels. BODY WEIGHT: 261 pounds 2 ounces. OBJECTIVE: Vital signs: Temperature are 99, pulse rate of 65, respiratory rate 15, blood pressure 119/64, saturating 100% on nasal cannula. General Appearance: Moderately built, moderately nourished, lying in bed, in no acute distress. HEENT: Mild pallor. No icterus. Neck: Supple. Abdomen: Obese soft, nontender, nondistended. No guarding. Extremities: No cyanosis, clubbing. He has chronic skin dermatitis. It is likely from venous stasis. Neurologic: He is alert, awake, oriented x3. LABORATORIES: Blood glucose 115 today. No other labs were checked. IMPRESSION AND PLAN: 1. Decompensated chronic systolic and diastolic heart failure. Being managed by Dr. Fleming. He is on spironolactone 100 mg once daily and metoprolol, low dose digoxin and Eliquis. 2. 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 He is on antibiotics. He will continue on antibiotics for 10 days and further, he will continue on prophylaxis as an outpatient. 3. Gastrointestinal prophylaxis with proton pump inhibitor. 4. Anemia, continue to watch for now. 5. Bowel regimen, Jessica-Colace as needed. 6. Obesity. Patient counseled to lose weight. 7. Anemia. Continue iron C b.i.d. Multivitamin once daily. 8. Gout. He is on colchicine. 9. Severe ischemic cardiomyopathy. He is on Plavix once daily. 10. 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 11. The patient will need ciprofloxacin 500 mg once daily after discharge for spontaneous bacterial peritonitis prophylaxis. 12. Mitral valve replacement. He is on Eliquis twice daily. 13. The above plans were discussed with the patient and all questions answered. Please call us with any further questions. cc: MD Christiano Meng MD [facility]
[2018-12-13] MEDS: MAXIPIME 2 GM in NS 100 ML IV SCH (09:53)
[2018-12-13] MEDS: MYCOSTATIN SUSP PO SCH ×4 (09:53→21:27)
[2018-12-13] MEDS: ZYVOX PO SCH ×2 (09:54→21:27)
[2018-12-13] MEDS: CENTRUM SILVER PO SCH (09:54)
[2018-12-13] MEDS: FOLIC ACID PO SCH (09:54)
[2018-12-13] MEDS: LASIX PO SCH (09:54)
[2018-12-13] MEDS: ALDACTONE PO SCH (09:54)
[2018-12-13] MEDS: PLAVIX PO SCH (09:54)
[2018-12-13] MEDS: PROTONIX IV SCH (09:54)
[2018-12-13] MEDS: COLCRYS PO SCH (09:54)
[2018-12-13] MEDS: ELIQUIS PO SCH ×2 (09:54→21:26)
[2018-12-13] MEDS: ICAR-C PO SCH ×2 (09:54→21:26)
[2018-12-13] MEDS: SODIUM CHLORIDE 0.9% INJ SCH (09:54)
[2018-12-13] MEDS: COREG PO SCH ×2 (09:55→21:25)
[2018-12-13] MEDS: LANOXIN IV SCH (09:55)
[2018-12-13] MEDS: NEOSPORIN OINTMENT TUBE TOP SCH (09:57)
[2018-12-13] MEDS: LOTRIMIN 1% CREAM TOP SCH ×2 (09:57→21:26)
--- NOTE | 2018-12-13 17:22 | PROGRESS NOTE ---
DATE: 12/13/2018 SUBJECTIVE: Mr. Shelby is feeling better. He feels stronger. His IV infiltrated so we will take it out. Change him over to p.o. medications. OBJECTIVE: Vital signs: He remains afebrile, temperature 98, pulse 69, respirations 15, blood pressure 109/55. HEENT: Pupils are equal and round. Lungs: Clear in all lung harden. Cardiovascular: Regular rhythm and rate without murmur or S3. LABS: Blood sugars 143, 115, 160. Review of his lab, hematocrit is 33, hemoglobin is 10. Blood sugars 115, 163, 160. ASSESSMENT AND PLAN: 1. Decompensated chronic systolic and diastolic heart failure. He is on spironolactone 100 mg once a day, metoprolol low-dose, digoxin, and Eliquis. 2. Ascites secondary cardiac cirrhosis, fatty liver cirrhosis, complicated by spontaneous bacterial peritonitis. This has been treated. He will be on some prophylaxis treatment as well. 3. Gastrointestinal prophylaxis. Proton pump inhibitors. 4. Anemia. Continue to follow his blood counts. 5. Bowel regimen. He is on Jessica-Colace. 6. Obesity. Encouraged and counseled to lose weight with low carb diet. 7. Anemia. He is on iron, Icar C b.i.d. and multivitamin once a day. 8. Gout. He is on colchicine. 9. Severe ischemic cardiomyopathy. Continue current medication. He appears to have diuresed some and doing better. 10. 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 Aware. 11. We will continue Cipro 100 mg a day after discharge for prophylaxis against spontaneous bacterial peritonitis. 12. Mitral valve replacement. He is on Eliquis still. 13. He is trying to go to rehab and we are looking for a rehab place now. 14. Orders. I do not see any change. We will stop cefepime and he will stay on his p.o. medications. cc: Len Johnson MD
--- NOTE | 2018-12-13 19:14 | INFECTIOUS DISEASE PROGRESS NO ---
DATE: 12/13/2018 PRESENT ILLNESS: Mr. Shelby has completed treatment for spontaneous bacterial peritonitis. At this point we are treating him for pneumonia with a procalcitonin of 0.4 which makes respiratory infection likely. He also has areas of cutaneous candidiasis as well as an oral candidiasis. MEDICATIONS: He has been receiving Zyvox 600 mg by mouth every 12 hours and cefepime 2 g IV every 12 hours. He has also been on Clotrimazole cream topically twice a day to the affected areas as well as nystatin swish and swallow 4 times a day. PHYSICAL EXAMINATION: Vital Signs: Temperature is 98 degrees, pulse rate 69, respiratory rate 15, blood pressure 109/55, O2 saturation 100%. General: This is an obese chronically gentleman. He is lying in bed currently in no acute distress. HEENT: Atraumatic, normocephalic. Oral mucous membranes are pink and moist. He states his mouth is feeling better since he has been on nystatin swish and swallow. Conjunctivae are pink. Neck: Supple. Trachea is midline. Cardiovascular: Irregularly irregular with atrial fibrillation on the monitor. Respiratory: Lung sounds have some scattered rales noted and are diminished in the bases. Abdomen: Soft, obese and nontender. Bowel sounds are active. Neurologic: He is drowsy and lethargic but arousable and oriented. Integumentary: Mild improvement noted to the areas of candidal dermatitis. LABORATORY AND X-RAY: Procalcitonin level is 0.40 making a respiratory tract infection likely. No imaging reports today. ASSESSMENT AND PLAN: Mr. Shelby is being treated for pneumonia with an elevated procalcitonin. He has been receiving Zyvox and cefepime but cefepime has been discontinued due to lack of an intravenous site, and also with the thought that he was going to be going to rehab. However, he did not get to rehab today, so we will order Ceftin 500 mg by mouth every 12 hours to complete broad-spectrum coverage for his pneumonia. Also we will go ahead and continue the clotrimazole cream to reddened rash areas twice a day as well as a nystatin swish and swallow. These plans have been discussed with and recommended by Dr. Helm. COMORBIDITIES: Include that he is elderly and obese with cirrhosis of the liver, lymphoma, diabetes mellitus and chronic kidney disease. Dictated by TATYANA Medina for Cortez Helm MD cc: Cortez Helm MD [facility]
[2018-12-13] MEDS: CEFTIN PO SCH (21:25)
[2018-12-14] MEDS: HUMALOG SUBQ SCH ×3 (06:35→17:28)
[2018-12-14] MEDS ORDERED: PROTONIX PO SCH (07:00)
[2018-12-14] MEDS ORDERED: LANOXIN PO SCH (09:00)
[2018-12-14] MEDS: COLCRYS PO SCH (09:30)
[2018-12-14] MEDS: ALDACTONE PO SCH (09:30)
[2018-12-14] MEDS: NEOSPORIN OINTMENT TUBE TOP SCH (09:30)
[2018-12-14] MEDS: LOTRIMIN 1% CREAM TOP SCH (09:30)
[2018-12-14] MEDS: MYCOSTATIN SUSP PO SCH ×3 (09:30→17:27)
[2018-12-14] MEDS: ZYVOX PO SCH (09:31)
[2018-12-14] MEDS: COREG PO SCH (09:31)
[2018-12-14] MEDS: ICAR-C PO SCH (09:31)
[2018-12-14] MEDS: PLAVIX PO SCH (09:31)
[2018-12-14] MEDS: CEFTIN PO SCH (09:31)
[2018-12-14] MEDS: CENTRUM SILVER PO SCH (09:31)
[2018-12-14] MEDS: ELIQUIS PO SCH (09:31)
[2018-12-14] MEDS: FOLIC ACID PO SCH (09:31)
[2018-12-14] MEDS: LASIX PO SCH (09:31)
--- NOTE | 2018-12-14 14:09 | DISCHARGE SUMMARY ---
ADMISSION DATE: 12/01/2018 DISCHARGE DATE: 12/14/2018 CONSULTATIONS: 1. Santo Horton MD with Cardiology. 2. Eyad Villela MD with Nephrology. 3. Christiano Lepe MD with Gastroenterology. 4. Cortez Helm MD with Infectious Disease. PERTINENT PROCEDURES: 1. Abdomen and pelvis CT: Probable cirrhosis, splenomegaly, severe body wall edema, trace residual ascites, mild rectal stool impaction. 2. Ultrasound-guided paracentesis where they removed 7.5 L of milky yellow fluid. DISCHARGE DIAGNOSES: 1. fluid volume overload secondary to congestive heart failure. 2. Congestive heart failure with an ejection fraction of 30% with exacerbation, improved. 3. Severe ischemic cardiomyopathy noted. 4. Massive ascites secondary to cardiac cirrhosis complicated with spontaneous bacterial peritonitis, status post ultrasound-guided paracentesis where they removed 7.5 L of milky white fluid. The patient has been on IV antibiotic therapy per Dr. Helm. 5. Hypotension on presentation, improved. 6. Obesity with obesity hypoventilation syndrome and sleep apnea. 7. Generalized weakness. 8. Chronic kidney disease stage 3B, cardiorenal. 9. New onset atrial fibrillation. 10. History of mitral valve replacement. Aware. HOSPITAL COURSE: Briefly, Mr. Shelby is a 68-year-old gentleman with a history of congestive heart failure, predominantly right-sided ischemic cardiomyopathy, obstructive sleep apnea, obesity, chronic kidney disease who came to the ED because of fluid volume overload. He was also found to be in atrial fibrillation. He was initially started on IV diuresis. His abdomen continued to be painful, so he underwent an ultrasound-guided paracentesis where they removed 7.5 L of fluid. His fluid analysis was consistent with spontaneous bacterial peritonitis. He was initiated on IV antibiotics followed by Infectious Disease. GI and Cardiology were both consulted as well. His medications were adjusted appropriately by each subspecialty. He has continued to improve on a daily basis and will be discharged to [facility] to continue on IV antibiotics under the direction of Dr. Cortez Helm. VITAL SIGNS: At the time of discharge, temperature is 98.2 degrees, heart rate 67, respirations 21, blood pressure 108/72, O2 is 100%. DISCHARGE DIET: Healthy heart. DISCHARGE MEDICATIONS: 1. Colcrys 0.6 mg p.o. q.a.m. 2. Coreg 3.125 mg p.o. b.i.d. 3. Eliquis 5 mg p.o. b.i.d. 4. Lexapro 10 mg p.o. q.p.m. 5. Plavix 75 mg p.o. q.a.m. 6. Prilosec 20 mg p.o. daily. 7. Aldactone 100 mg p.o. daily. 8. Centrum Silver 1 each p.o. daily. 9. Folic acid 1 mg p.o. daily. 10. Icar C 1 each p.o. b.i.d. 11. Digoxin 125 mcg p.o. daily. 12. Lasix 80 mg p.o. daily. 13. Jessica-Colace 1 each p.o. b.i.d. p.r.n. 14. Tums 500 mg p.o. b.i.d. p.r.n. 15. Antibiotic as per Dr. Cortez Helm. FOLLOW UP: Mr. Shelby is being discharged to [facility] where he will continue to work with physical therapy. Continue to follow up with Dr. Cortez Helm, his primary care provider, Dr. Christiano Nguyen, as well as Cardiology. He can return to the ED or call 911 for any worsening of symptoms. Dictated by TATYANA Boland for Dawit Kapoor MD cc: MD Cortez Ace MD [facility], MD [facility], MD [facility]
--- NOTE | 2018-12-14 14:33 | INFECTIOUS DISEASE PROGRESS NO ---
DATE: 12/14/2018 The patient has had spontaneous bacterial peritonitis which has been treated and cleared. He does appear to have a bilateral pneumonia. He will be going home on the following antibiotics Zyvox 600 mg p.o. every 12 hours and Ceftin 500 mg p.o. every 12 hours for 2 weeks. I have ordered that the patient have a CBC with differential and creatinine every Thursday and all of this is for 2 weeks, both for the lab and for the duration of treatment with the antibiotics. I have requested also that the patient come to my office in 2 weeks for a follow-up appointment. cc: Cortez Helm MD
[2018-12-14 17:12] VITALS: BP 119/53
== END 2018-12-14 17:45 | DRG 291 ==
LOC: ED 10:24 → EDIPHOLD 12:57 → SUATTDRO 12:57 → ICU 12-02 10:57 → 3N 12-04 14:59
PROVIDERS: ATTEND Internal Medicine
CPT/HCPCS: 49083; 71010; 71045; 74176; 80048; 80053; 80069; 80162; 82042; 82150; 82550; 82805; 82948; 83735; 83880; 84100; 84145; 84157; 84484; 85025; 85610; 85730; 87040; 87070; 87075; 87116; 87206; 88112; 89051; 93005; 93010; 94660; 94761; 96365; 96366; 96368; 96375; 96376; 97110; 97116; 97163; 97166; 97530; 97535; 99285; 99291; A9270; C9113; J0692; J0696; J1160; J1650; J1815; J1940; J2260; J3105; J3370; P9047; S0164; XXXXX

== ENCOUNTER 2019-02-21 15:30 | Inpatient (IN) ==
[2019-02-21] MEDS ORDERED: ASPIRIN PO ONE (15:44)
--- NOTE | 2019-02-21 15:51 | EKG Report ---
Test Performed on : 02/21/2019 3:45:54 PM Test Reason : sob Blood Pressure : / mmHG Vent. Rate : 115 BPM Atrial Rate : 115 BPM P-R Int : 160 ms QRS Dur : 136 ms QT Int : 334 ms P-R-T Axes : 000 099 258 degrees QTc Int : 462 ms Sinus tachycardia. with occasional premature ventricular complexes. Right bundle branch block Possible Inferior infarct , age undetermined Anterior infarct , age undetermined Abnormal ECG When compared with ECG of 04-DEC-2018 06:31, Significant changes have occurred Unconfirmed Result
--- NOTE | 2019-02-21 16:02 | Diag Imaging Result Doc PS360 ---
EXAM: CHEST-2 VIEWS 02/21/2019 HISTORY: sob TECHNIQUE: AP and lateral chest COMMENT: There are bilateral pleural effusions more so on the right than the left. There may be loculated fluid and/or pleural thickening on the right including the with regard to the minor fissure. This is worse than on the previous study of 12/09/2018. The left lung is actually clearer than on the previous study with the entire left heart border and diaphragm demonstrated. The heart size is enlarged. There is a mitral valve prosthesis. The possibility of pneumonia in the right lower lobe cannot be excluded. IMPRESSION: Loculated pleural effusion on the right with right lower lobe atelectasis versus pneumonia. Cardiomegaly. Electronically signed by Gilbert Carrillo 02/21/2019 3:59 PM
[2019-02-21 16:28] LABS: BASO# 0.05 X1000 (0.0-0.2); BASO% 0.8 % (0.0-0.8); EOS% 3.3 % (0.0-10.0); HEMATOCRIT 37.9 % (42.0-52.0); HEMOGLOBIN 12.1 g/dL (14.0-18.0); LYMPH# 0.42 X1000 (1.2-3.4); MCH 30.4 PG (27-31); MCHC 31.9 g/dL (33-37); MCV 95.2 FL (81-99); MONO# 0.53 X1000 (0.11-0.59); MONO% 8.8 % (1.7-9.3); MPV 9.8 FL (7.4-10.4); NEUT# 4.82 X1000 (1.4-6.5); NEUT% 80.1 % (42.2-75.2); PLT 192 X1000 (130-400); RBC 3.98 XMIL (4.7-6.1); RDW 17.6 % (11.5-14.5); WBC 6.02 X1000 (4.8-10.8)
[2019-02-21 16:42] LABS: INR 1.2; PROTIME 16.2 Seconds (11.0-16.0)
[2019-02-21 16:57] LABS: ALB/GLOB RATIO 1.1; ALBUMIN 3.5 g/dL (3.5-5.0); CALCIUM 9.1 mg/dL (8.8-10.2); CREATININE 1.8 mg/dL (0.7-1.2); POTASSIUM 5.3 mmol/L (3.5-5.1); TOTAL BILIRUBIN 1.9 mg/dL (0.20-1.00); TOTAL PROTEIN 6.8 g/dL (6.3-8.3)
[2019-02-21] MEDS ORDERED: LASIX IV ONE (18:06)
--- NOTE | 2019-02-21 18:42 | PROVIDER DOCUMENTATION ---
This chart was entered by Mary Santos Scribe, acting as scribe for Ida Guerrero MD. HPI-General Adult - General Chief Complaint: Edema Stated Complaint: FLUID BUILD UP Time Seen by Provider: 02/21/19 17:47 Source: patient Allergies/Adverse Reactions: Patient Allergies Allergy/AdvReac Type Severity Reaction Status Date / Time metoclopramide HCl * Allergy Mild headache, Verified 12/02/18 10:11 [From Reglan] dizzines, confusion Penicillins Allergy Mild SHORTNESS Verified 12/02/18 10:11 OF BREATH Sulfa (Sulfonamide Allergy Mild NAUSEA/VOMI Verified 12/02/18 10:11 Antibiotics) TING Tetanus Vaccines and Toxoid AdvReac Severe RASH Verified 12/02/18 10:11 levofloxacin [From Levaquin] AdvReac RASH Verified 12/02/18 10:11 propofol AdvReac doesn't Verified 12/02/18 10:11 like the feeling postop Home Medications: Home Medication List Medication Instructions Recorded Confirmed Last Taken Type Escitalopram Oxalate [Lexapro] 10 mg PO QPM 04/24/15 12/02/18 2 Days Ago History ~11/30/18 Clopidogrel Bisulfate [Plavix] 75 mg PO QAM 11/23/17 12/02/18 2 Days Ago History ~11/30/18 Omeprazole [Prilosec] 20 mg PO DAILY@0700 PRN 04/08/18 12/02/18 11/29/18 History Calcium Carbonate Chew [Tums] 500 mg PO BID PRN PRN tab.chew 09/27/18 12/02/18 2 Days Ago Rx ~11/30/18 Apixaban [Eliquis] 5 mg PO BID 12/02/18 12/02/18 2 Days Ago History ~11/30/18 Carvedilol [Coreg] 3.125 mg PO BID 12/02/18 12/02/18 2 Days Ago History ~11/30/18 Colchicine 0.6 mg PO QAM 12/02/18 12/02/18 2 Days Ago History ~11/30/18 Iron Carbonyl/Ascorbic Acid 1 ea PO BID tab 12/06/18 Unknown Rx [Icar-C] Multivitamins/Minerals [Centrum 1 ea PO DAILY tab 12/06/18 Unknown Rx Silver] Sennosides/Docusate Sodium 1 ea PO BID PRN PRN tab 12/06/18 Unknown Rx [Pericolace] Digoxin [Lanoxin] 125 microgm PO DAILY #90 tab 12/14/18 Unknown Rx Folic Acid 1 mg PO DAILY #90 tab 12/14/18 Unknown Rx Furosemide [Lasix] 80 mg PO DAILY #90 tab 12/14/18 Unknown Rx Spironolactone [Aldactone] 100 mg PO DAILY #901 tab 12/14/18 Unknown Rx - History of Present Illness -Gen Adult Nature of Presenting Problems: 68 yom c/o edema in scrotal area past week and also gained 50lbs in 1 week. pt is also sob. pt sts pain and enlargement in scrotum. pt has hx of ckd and chf. pt denies fever, chills and nvd. Location of Pain/Injury: reports: lower body (scrotum) Pain Radiation: reports: no radiation Severity: reports: mild Onset/Duration: reports: last week Timing: reports: still present Review of Systems - Adult - REVIEW OF SYSTEMS - ADULT Constitutional: reports: no symptoms reported. denies: chills, fever Eyes: reports: no symptoms reported Ears, Nose, Mouth & Throat: reports: no symptoms reported Cardiovascular: reports: see HPI, edema (scrotal). denies: chest pain, o rthopnea, palpitations Respiratory: reports: see HPI, shortness of breath. denies: cough, pleurisy, wheezing Gastrointestinal: reports: no symptoms reported Genitourinary: reports: no symptoms reported Musculoskeletal: reports: no symptoms reported Integumentary: reports: no symptoms reported Neurological: reports: no symptoms reported Psychiatric: reports: no symptoms reported Endocrine: reports: no symptoms reported Hematologic/Lymphatic: reports: no symptoms reported Allergic/Immunologic: reports: no symptoms reported All Other Systems: Reviewed and Negative Past History - Adult - PAST MEDICAL HISTORY-ADULT Review of Records: reports: Old Records Reviewed, Nursing Assessment Review, Medications Reviewed, Social history reviewed & non-contributory. Major Childhood Illnesses: reports: denies history Cardiovascular: reports: CAD, CHF, HTN, [place] Respiratory: reports: COPD, sleep apnea Gastrointestinal: reports: denies history Obstetrical/Gynecological: reports: denies history Genitourinary: reports: kidney disease Musculoskeletal: reports: denies history Neurological: reports: denies history Psychiatric: reports: depression Endocrine/Immune: reports: denies history Other Conditions: reports: denies history - PRIOR SURGERIES/PROCEDURES Surgical/Procedure History: reports: hernia repair, joint replacement, other (nasal sx) - IMMUNIZATION STATUS Childhood Immunizations: See Nurse Assessment Flu Vaccine: See Nurse Assessment - FAMILY HISTORY Family History: reviewed, not pertinent - SOCIAL HISTORY Smoking: other (former) Substance Use: none/never Physical Exam-General - PHYSICAL EXAM-ADULT Initial Vital Signs Reviewed: Yes - CONSTITUTIONAL General Appearance: alert, mild distress, obese. negative: slow to respond, obtunded, combative - EYES Eyes: PERRL/EOMI, pink conjunctivae - HEAD, EARS, NOSE, MOUTH & THROAT HENMT: normocephalic/atraumatic, moist mucous membranes, normal ENT inspection - NECK Neck: non-tender, full range of motion, supple, normal inspection - RESPIRATORY Respiratory: chest non-tender, lungs clear, normal breath sounds - CARDIOVASCULAR Cardiovascular: normal peripheral pulses, regular rate, rhythm - GASTROINTESTINAL (ABDOMEN) Abdominal Exam: normal bowel sounds, non tender, soft - LYMPHATIC Lymphatic: no adenopathy - MUSCULOSKELETAL Back Exam: normal inspection, no CVA tenderness, no vertebral tenderness Extremity: normal range of motion, non-tender, normal inspection Peripheral Pulses: radial (R): 2+, radial (L): 2+ - SKIN Integumentary: normal color, normal turgor, warm/dry - NEUROLOGIC Neurologic: grossly normal, no motor/sensory deficits - PSYCHIATRIC Psych/Mental Status: normal mood/affect, normal thought content, normal thought process, oriented x 3 Progress - PLAN OF CARE/RESULTS Progress/Plan/Lab Results: Vital Signs - 8 hr 02/21/19 15:41 Temperature 97.6 F Pulse Rate 114 H Respiratory Rate 17 Blood Pressure 101/71 O2 Sat by Pulse Oximetry 98 Laboratory Results - last 24 hr 02/21/19 02/21/19 02/21/19 16:17 16:17 16:17 WBC 6.02 RBC 3.98 L Hgb 12.1 L Hct 37.9 L MCV 95.2 MCH 30.4 MCHC 31.9 L RDW Std Deviation 17.6 H Plt Count 192 MPV 9.8 Immature Gran % (Auto) 0.0 Neut % (Auto) 80.1 H Lymph % (Auto) 7.0 L [place] % (Auto) 8.8 Eos % (Auto) 3.3 Baso % (Auto) 0.8 Immature Gran # (Auto) 0.00 Neut # (Auto) 4.82 Lymph # (Auto) 0.42 L [place] # (Auto) 0.53 Eos # (Auto) 0.20 Baso # (Auto) 0.05 PT INR PTT (Actin FS) Sodium 142 Potassium 5.3 H Chloride 107 Carbon Dioxide 20 L Anion Gap 15 BUN 33 H Creatinine 1.8 H Estimated GFR/1.73 m2 38 BUN/Creatinine Ratio 18 Glucose 109 H Calculated Osmolality 291 Calcium 9.1 Total Bilirubin 1.90 H AST 18 ALT 9 L Alkaline Phosphatase 230 H Creatine Kinase 32 Troponin T [id number] Pept 04960 H Total Protein 6.8 Albumin 3.5 Globulin 3.3 Albumin/Globulin Ratio 1.1 02/21/19 02/21/19 16:17 16:17 WBC RBC Hgb Hct MCV MCH MCHC RDW Std Deviation Plt Count MPV Immature Gran % (Auto) Neut % (Auto) Lymph % (Auto) [place] % (Auto) Eos % (Auto) Baso % (Auto) Immature Gran # (Auto) Neut # (Auto) Lymph # (Auto) [place] # (Auto) Eos # (Auto) Baso # (Auto) PT 16.2 H INR 1.20 PTT (Actin FS) 34.0 Sodium Potassium Chloride Carbon Dioxide Anion Gap BUN Creatinine Estimated GFR/1.73 m2 BUN/Creatinine Ratio Glucose Calculated Osmolality Calcium Total Bilirubin AST ALT Alkaline Phosphatase Creatine Kinase Troponin T 0.078 Epy-[id number]-Bdzixiajlhv Pept Total Protein Albumin Globulin Albumin/Globulin Ratio Orders Category Date Time Status Cardiac Monitoring DIRECTED Care 02/21/19 15:44 Active Oxygen Therapy- ED Nursing DIRECTED Care 02/21/19 15:44 Active Saline Loc NOW Care 02/21/19 15:44 Active CHEST-2 VIEWS [RAD] Stat Exams 02/21/19 15:44 Completed CBC WITH ELECTRONIC DIFF [HEME] Stat Lab 02/21/19 16:17 Completed CK PROFILE [SP CHEM] Stat Lab 02/21/19 16:17 Completed COMPREHENSIVE METABOLIC PANEL [CHEM] Stat Lab 02/21/19 16:17 Completed PRO B-NATRIURETIC PEPTIDE Stat Lab 02/21/19 16:17 Completed PROTIME WITH INR [COAG] Stat Lab 02/21/19 16:17 Completed PTT [COAG] Stat Lab 02/21/19 16:17 Completed TROPONIN T Stat Lab 02/21/19 16:17 Completed Aspirin Med 02/21/19 15:44 Discontinued 325 mg PO NOW ONE Furosemide [Lasix] Med 02/21/19 18:06 Discontinued 60 mg IV NOW ONE CP/SOB/Palp >45 yrs of Age Stat Oth 02/21/19 15:44 Ordered EKG [EKG] Stat Ther 02/21/19 15:44 Draft Result Diagrams: 02/21/19 16:17 02/21/19 16:17 - EKG 1 Time of EKG reading by physician:: 15:45 EKG Read and Signed by:: Brien Erickson EKG Interpretation (*Must complete 3 of following elements*): Abnormal Rate: 115 (possible inferior infarct, age undetermined ) Rhythm: ST w/ pvc QRS: RBB HI Interval: normal ST Wave: normal Comments: anterior infarct, age undetermined - CONSULTS/PCP/HOSPITALIST Notification #1 *Consult/PCP/Hospitalist*: [place] Time Discussed: 18:12 (discussed pt ) Consult Disposition: Will see in ED Departure - Departure Date of Disposition Decision: 02/21/19 Time of Disposition Decision: 18:12 DIAGNOSIS: CHF (congestive heart failure), Fluid overload Disposition: ADMITTED INPATIENT 09 Certified Medical Emergency: Emergent Condition: Stable Referrals and Follow-Ups: Christiano Nguyen MD [Primary Care Provider] - - Critical Care Note This patient required my direct & personal management of CC.: No Attestation - Physician/ ADEN Attestation Patient care was provided by Advanced Practice Provider:: No The physician spent face to face time with patient:: Yes Advanced Practice Provider documentation review:: Supervising physician onsite and consulted in the evaluation and care of this patient. The physician did have a face to face encounter with the patient. This chart was documented by the indicated scribe, (Mary Santos Scribe) and accurately reflects the services I performed and decisions made by me, Ida Guerrero MD, as attested by the provider's signature.
[2019-02-21] MEDS ORDERED: TUMS PO PRN (20:37)
[2019-02-21] MEDS ORDERED: LEXAPRO PO SCH (21:00)
[2019-02-21] MEDS: MORPHINE IV PRN (21:32)
[2019-02-21] MEDS: ICAR-C PO SCH (22:37)
[2019-02-21] MEDS: ELIQUIS PO SCH (22:37)
[2019-02-21] MEDS: COREG PO SCH (22:38)
[2019-02-21] MEDS: DUONEB (A & A) INH PRN (23:35)
[2019-02-22] MEDS: MORPHINE IV PRN ×5 (01:11→20:51)
[2019-02-22] MEDS: DUONEB (A & A) INH PRN ×6 (03:25→23:40)
[2019-02-22 05:23] LABS: BASO# 0.03 X1000 (0.0-0.2); BASO% 0.5 % (0.0-0.8); EOS% 1.7 % (0.0-10.0); HEMATOCRIT 34.4 % (42.0-52.0); HEMOGLOBIN 10.9 g/dL (14.0-18.0); LYMPH% 8.4 % (20.5-51.1); MCH 30.3 PG (27-31); MCHC 31.7 g/dL (33-37); MCV 95.6 FL (81-99); MONO# 0.62 X1000 (0.11-0.59); MONO% 10.4 % (1.7-9.3); MPV 10.4 FL (7.4-10.4); PLT 186 X1000 (130-400); RDW 17.5 % (11.5-14.5); WBC 5.95 X1000 (4.8-10.8)
[2019-02-22 05:38] LABS: CREATININE 1.7 mg/dL (0.7-1.2); MAGNESIUM 2.2 mg/dL (1.5-2.7); POTASSIUM 5.3 mmol/L (3.5-5.1)
--- NOTE | 2019-02-22 06:31 | HISTORY AND PHYSICAL ---
CHIEF COMPLAINT: Increasing edema. HISTORY OF PRESENT ILLNESS: The patient is a 68-year-old male with a history of ischemic cardiomyopathy with an ejection fraction around 30-35% with chronic biventricular congestive heart failure, moderate to severe pulmonary hypertension and morbid obesity as well as chronic kidney disease stage 3. He comes in after gaining 50 pounds in 1 week. He has extensive edema in his abdomen and scrotal area which was very painful, so he came into the emergency room. On initial workup in the emergency room his chest x-ray showed a loculated pleural effusion on the right, as well as cardiomegaly. On laboratory data his chronic kidney disease is stable. ProBNP is elevated at 13,464. He was given 60 mg of Lasix in the emergency room. He will be admitted to CICU for further evaluation and treatment. PAST MEDICAL HISTORY: Mitral valve disorder, undergoing mitral valve replacement in 2009 and transcutaneous mitral valve replacement in 2019. Ischemic cardiomyopathy, 30- 35% ejection fraction. Chronic biventricular congestive heart failure. Moderate to severe pulmonary hypertension. COPD. Obstructive sleep apnea. Morbid obesity. Atrial arrhythmias and atrial flutter status post cardioversion in October 2018. Coronary artery disease status post angioplasty and stenting of the RCA and distal LAD. Moderate aortic stenosis with trace aortic regurgitation. Previous DVT with chronic venous insufficiency. . 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 PREVIOUS SURGICAL HISTORY: Mitral valve replacement x2, PCIs, bone marrow biopsy, deviated septum surgery, right knee surgery, right shoulder surgery, abdominal hernia repair, multiple EGDs. SOCIAL HISTORY: Former smoker, 1 pack per day for 20 years; he quit in 1993. . Lives in [place]. Retired financial analysis. No alcohol or illicit drugs. FAMILY HISTORY: Mother: Heart disease, breast cancer, diabetes mellitus and thyroid disease. Father: Heart disease, from a myocardial infarction at 51. Strong paternal history of coronary artery disease in his brother, uncle, father and grandfather all passing away before age 59. ALLERGIES: Reglan, penicillin, sulfa, tetanus toxoid, propofol and Levaquin. HOME MEDICATION: Lexapro 10 mg p.o. at bedtime, Plavix 75 mg p.o. q.a.m., omeprazole 20 mg p.o. daily, Tums 500 mg p.o. b.i.d., Eliquis 5 mg p.o. b.i.d., carvedilol 3.125 mg p.o. b.i.d., colchicine 0.6 mg p.o. q.a.m., multivitamin 1 daily, Icar-C 1 p.o. b.i.d., Jessica- Colace 1 p.o. b.i.d., spironolactone 100 mg p.o. daily, folic acid 1 mg p.o. daily, digoxin 125 mcg p.o. daily, Lasix 80 mg p.o. daily. REVIEW OF SYSTEMS: Fourteen-point review of systems conducted with the patient. Pertinent positives listed above in the HPI. All other systems reviewed and found to be negative. PHYSICAL EXAMINATION: VITAL SIGNS: Temperature 98.4, pulse 114, respirations 17, blood pressure 112/79, oxygen saturation 100% on room air. GENERAL: Obese 68-year-old male lying in the ER stretcher, answers all questions appropriately. Is alert and oriented x3, in no acute distress. HEENT: Head is atraumatic, normocephalic. Pupils equal, round, reactive to light. Extraocular eye movement is intact. Sclerae are anicteric. Conjunctivae are pink. Oral mucosa is moist. NECK: Supple. JVD noted. No thyromegaly. Trachea is midline. No carotid bruit. CARDIAC: S1, S2 appreciated. No murmurs, gallops, rubs. Slightly irregular. LUNGS: Diminished bilaterally. Crepitations noted throughout bilateral lung harden, primarily on the right. ABDOMEN: Soft, slightly distended. Abdominal ascites noted. Nontender to palpation. Bowel sounds present in all 4 quadrants, slightly hypoactive. EXTREMITIES: No clubbing or cyanosis. Three-plus pitting edema of bilateral lower extremities. Chronic color change from mid calves to feet related to chronic venous stasis. Pedal pulses 2+. GENITOURINARY: The patient has large amounts of scrotal edema. Glans pubis and urethral meatus were unable to be visualized related to impressive swelling. He is having tenderness in this area to palpation. NEUROLOGICAL: Alert and oriented x3. No focal motor deficits. Otherwise nonfocal examination. DIAGNOSTIC DATA: Chest x-ray shows a loculated pleural effusion on the right, cardiomegaly. EKG shows sinus tachycardia with PVCs. Ventricular rate 115. LABORATORY DATA: WBC 6.02, hemoglobin 12.1, hematocrit 37.9, platelet count 192,000. PT 16.2, INR 1.20. Sodium 142, potassium 5.3, chloride 107, carbon dioxide 20, BUN 33, creatinine 1.8, glucose 109, total bilirubin 1.90. ProBNP 13,464. ASSESSMENT AND PLAN: 1. Acute on chronic heart failure. Patient's ejection fraction is 30-35%. Will give Lasix 60 mg IV q.12 hours. Strict intake and output. Continue home medications. 2. Anasarca. See above. 3. Diabetes mellitus. Fingerstick blood sugar with sliding scale insulin. Heart healthy diabetic diet. Check hemoglobin A1c. 4. Hyperlipidemia. Continue home medications. 5. Hypertension. Continue home medications. 6. History of mitral valve replacement and intracardiac thrombus. Continue blood thinners. 7. Chronic kidney disease 3. This is stable. Continue to monitor. 8. Further recommendations per patient's clinical course. Dictated by TATYANA Valenzuela for Adama Souza MD I have performed a face to face diagnostic evaluation. Labs/ Xrays- reviewed. Exam- chest- rales, CV- regular. A/P- CHF exacerbation. Admit, diuresis with lasix. Dr. Souza cc: TATYANA Valenzuela MD [facility]
[2019-02-22] MEDS: HUMALOG SUBQ SCH ×4 (06:35→21:18)
[2019-02-22] MEDS ORDERED: PRILOSEC PO PRN (07:00)
--- NOTE | 2019-02-22 07:34 | EKG Report ---
Test Performed on : 02/22/2019 06:30:40 AM Test Reason : chest pain Blood Pressure : / mmHG Vent. Rate : 073 BPM Atrial Rate : 375 BPM P-R Int : 000 ms QRS Dur : 100 ms QT Int : 460 ms P-R-T Axes : 000 095 117 degrees QTc Int : 506 ms Atrial fibrillation. with a competing junctional pacemaker. Rightward axis Low voltage QRS Incomplete right bundle branch block Nonspecific ST and T wave abnormality Abnormal ECG When compared with ECG of 21-FEB-2019 15:45, (Unconfirmed) Significant changes have occurred Confirmed by Elizabeth LIVINGSTON, Len Yun ([id number]) on 02/22/2019 5:30:51 PM
[2019-02-22] MEDS: LANOXIN PO SCH (10:35)
[2019-02-22] MEDS: COREG PO SCH ×2 (10:35→20:43)
[2019-02-22] MEDS: ALDACTONE PO SCH (10:35)
[2019-02-22] MEDS: CENTRUM SILVER PO SCH (10:36)
[2019-02-22] MEDS: ELIQUIS PO SCH (10:36)
[2019-02-22] MEDS: PLAVIX PO SCH (10:36)
[2019-02-22] MEDS: COLCRYS PO SCH (10:36)
[2019-02-22] MEDS: FOLIC ACID PO SCH (10:36)
[2019-02-22] MEDS: ICAR-C PO SCH ×2 (10:36→20:43)
[2019-02-22] MEDS: ZAROXOLYN PO ONE ×2 (11:46→11:51)
[2019-02-22] MEDS: LASIX IV SCH ×2 (11:47→20:43)
[2019-02-22] MEDS ORDERED: ROCEPHIN 1 GM in NS 50 ML IV SCH (12:15)
[2019-02-22] MEDS ORDERED: DIFLUCAN 100 MG/NS 100 MG/50 ML IVPB IV SCH (12:15)
--- NOTE | 2019-02-22 12:39 | PROGRESS NOTE ---
DATE: 02/22/2019 SUBJECTIVE: He is a very swollen gentleman with heart failure who is still here with heart failure. He feels like swelling is a little less. OBJECTIVE: Vital Signs: Blood pressure is 112/64, heart rate 87, respiratory rate 15, temperature 97.3 degrees. Cardiovascular: Regular rate and rhythm. Pulmonary: Rales at the bases. GI: Soft, nontender, nondistended. Bowel sounds were positive. Laboratory Data: His creatinine is around 1.7, potassium 5.3. Hemoglobin and hematocrit 10 and 34. TSH 9.82. PROBLEM LIST: Acute congestive heart failure exacerbation. Continue diuretics. Cardiology has been consulted. He has not been very good with followup. I am not sure how compliant he is with all his medications. He has gross ascites on exam which sounds like he has had a paracentesis done before. He has seen Dr. Fallon before for a catheter. They did a paracentesis in November and took off 7.5 L of fluid. Presumably, that is from cardiac ascites. He does not have a primary ascites diagnosis. He had spontaneous bacterial peritonitis last time so we may need to cover him for that as well. Additionally, I am going to give him fluconazole because he has severe tiburcio intertrigo. I may give him a quinolone. He is allergic to Levaquin and he is allergic to penicillin so I do not have a ton of options. I am just going to put him on Rocephin. I have discussed the case with cardiology. They would like to pursue a urology consult, which he has seen Dr. Fallon in the past. I think they have had difficulty with catheters. Then infectious disease consult for his skin and then there his concern over possible spontaneous bacterial peritonitis. He is on Eliquis so I do not think we can safely do a tap until tomorrow at the earliest. cc: Ken Rodas MD
[2019-02-22] MEDS ORDERED: NS 250 ML ONE (13:08)
--- NOTE | 2019-02-22 14:07 | CONSULTATION ---
DATE OF CONSULTATION: 02/22/2019 IMPRESSION: 1. Acute on chronic biventricular congestive heart failure predominantly right-sided with associated anasarca and probable ascites, and associated scrotal edema. 2. Mitral valve disorder with history of previous mitral valve replacement in 2009, and transcutaneous mitral valve prosthesis placement in October of 2018. 3. Aortic valve disorder with moderate aortic stenosis and trace aortic regurgitation. 4. Ischemic cardiomyopathy with left ventricular ejection fraction of 30 to 35%. 5. Atherosclerotic coronary disease. 6. Significant pulmonary hypertension, chronic. 7. Obstructive sleep apnea. 8. Obesity. 9. Hypertension. 10. Hyperlipidemia. 11. Type 2 diabetes mellitus. 12. Acute on chronic kidney disease. 13. Cirrhosis with albumin of 3.5. RECOMMENDATIONS: 1. Agree with plans for diuresis with IV Lasix. 2. Will give some metolazone to try and hasten diuresis. 3. Abdominal ultrasound. May need to consider therapeutic paracentesis. HISTORY: This 68-year-old white male with past history of biventricular congestive heart failure, mitral valve disorder as outlined above, ischemic cardiomyopathy, aortic valve disorder, obstructive sleep apnea, obesity, chronic kidney disease, and atrial arrhythmias was admitted after she returned with progressive weight gain and scrotal edema. He was hospitalized here back in early November of this year with congestive heart failure. He required therapeutic paracentesis because of the severe ascites. He was diuresed further, and following discharge he relates that he has progressively had reemergence of swelling, and weight gain of approximately 50 pounds since last admission. Last week he started having problems with scrotal edema. This progressed and this finally prompted him to come on in for evaluation. He has not had any chest pain or orthopnea. PAST MEDICAL HISTORY: 1. Mitral valve disorder as outlined above. 2. Aortic valve disorder. 3. Ischemic cardiomyopathy with left ejection fraction 30 to 35%. 4. Moderate to severe pulmonary hypertension. 5. Obstructive sleep apnea. 6. Morbid obesity. 7. Chronic obstructive pulmonary disease. 8. Atrial arrhythmias. Patient is status post previous cardioversion of atrial flutter 11/03/2018. 9. Atherosclerotic coronary disease for previous coronary angioplasty/stenting of proximal right coronary artery angioplasty/stenting of distal left anterior descending coronary. 10. Previous DVT and chronic venous insufficiency. 11. Hypertension. 12. Hyperlipidemia. 13. Type 2 diabetes mellitus. 14. Chronic kidney disease. 15. Cirrhosis. 16. Non-Hodgkin's lymphoma. 17. Depression. MEDICATIONS: He is allergic or intolerant to metoclopramide, penicillins and other medications as listed. SOCIAL HISTORY: He is . He does not smoke. He does not use alcohol. FAMILY HISTORY: Positive for coronary disease, hypertension and type 2 diabetes mellitus. REVIEW OF SYSTEMS: Pulmonary: Noteworthy for exertional dyspnea with limited exertion. Gastrointestinal: Noteworthy for increasing abdominal girth and some anorexia. Constitutional: Noteworthy for significant weight gain of approximately 50 pounds since discharge from previous admission. Remainder of the review of systems negative/noncontributory with 14 total systems reviewed. PHYSICAL EXAMINATION: General: This is a morbidly obese, older white male in no distress on supplemental oxygen. Vital signs: Blood pressure 112/74, heart rate 71, and weight 326 pounds. HEENT: Extraocular movements intact. Mucous membranes moist. Neck: Supple with prominent jugular venous distention consistent with significantly elevated central venous pressure. Carotid bruits cannot be appreciated. Chest: Auscultation of the chest reveals diminished breath sounds at bases bilaterally. Cardiac: Reveals a regular rate and rhythm without appreciable murmur or gallop. Heart sounds are somewhat distant. Abdomen: Distended. Abdomen is nontender. Bowel sounds are audible. Extremities: Demonstrate 3+ edema with some woody edema consistent with chronic edema. Prominent venous stasis changes are evident bilaterally in the lower extremities. Neurologic: Exam reveals him to be alert and fully oriented. Speech is fluent. Moves all 4 extremities equally well. Skin: Warm and dry. Psychiatric: Mood to be appropriate. PERTINENT DATA: Twelve lead EKG demonstrates atrial fibrillation versus atypical flutter rightward axis low voltage QRS incomplete right bundle branch block and nonspecific ST and T-wave abnormality. LABORATORY DATA: Sodium 140, potassium 5.3, chloride 107, carbon dioxide 22, BUN 34, creatinine 1.7, glucose 90, magnesium 2.2. Pro B-natriuretic peptide level 13,464. TSH 9.82. ProTime 16.2 and INR 1.2. White blood cell count 5.95, hematocrit 34.4, hemoglobin 10.9, platelet count 186,000 and albumin 3.5. cc: Santo Horton MD
[2019-02-22 14:14] LABS: INR 1.76; PROTIME 21.8 Seconds (11.0-16.0)
--- NOTE | 2019-02-22 14:15 | Diag Imaging Result Doc PS360 ---
CHEST-PORTABLE - 02/22/2019 INDICATION: confirm PICC placement COMPARISON: 02/21/2019 FINDINGS: There is a left PICC line with the tip in the upper mediastinum. Stable severe cardiomegaly and pulmonary vascular congestion. Stable device in the heart. There are shifting opacities in the right lung. There are probably bibasilar infiltrates and effusions similar to prior. IMPRESSION: Nonspecific findings. Electronically signed by Duane Ty 02/22/2019 2:13 PM
--- NOTE | 2019-02-22 15:18 | INFECTIOUS DISEASE CONSULT REP ---
DATE: 02/22/2019 CONCLUSION: The patient has marked scrotal edema due to a massive fluid buildup. I think there is the beginning of a cellulitis in the scrotum where there is erythema seen. The patient also has cutaneous candidiasis involving the pelvic area and lower part of the abdomen. Finally, the patient, on chest x-ray, may have a right lower lobe pneumonia with a pleural effusion. The patient has a history of penicillin allergy from approximately 50 years ago. He did have difficulty breathing but since that time, the patient has had Keflex and he tolerated it well. The patient does have a large abdomen and he may well have some ascites but I doubt that the patient has spontaneous bacterial peritonitis. RECOMMENDATIONS: I have discontinued Rocephin and fluconazole. I have put the patient on Zyvox p.o. and I have discontinued Lexapro because of a possible adverse reaction between those 2 medications. Before I discontinued it, I asked the patient if he would be able to do without Lexapro while he is in the hospital here and he said yes he could do without it. I have discontinued Rocephin and instead placed the patient on cefepime. As mentioned earlier, the patient has tolerated Keflex well and, therefore, he should tolerate cefepime well since both antibiotics are cephalosporins. In addition, I have put that the nurse should observe the patient during the first dose of cefepime. I have discontinued fluconazole and instead have put the patient on micafungin. DISCUSSION: The patient tells me that he was admitted to the hospital because he has had fluid buildup. He has shortness of breath. He has scrotal swelling and he has developed a rash in the pelvic area. The laboratory studies thus far show a CBC with a white count of 5950, hemoglobin 10.9, and platelet count 186,000. Creatinine is 1.7. GFR is 41. Liver function studies are normal except for an alkaline phosphatase of 230. Chest x-ray shows a right lower lobe pneumonia and/or atelectasis with a pleural effusion. PAST MEDICAL HISTORY/REVIEW OF SYSTEMS: Eyes and Ears: The patient does not have any problems seeing or hearing. Neck: No stiffness. Respiratory: See present illness. Cardiac: See present illness. GI: The patient says he has constipation but he does not have any nausea or vomiting. : No dysuria or flank pain. Bones, Joints, and Muscles: The patient does have pain in his hands which he attributes to gout. Integument: The patient has developed a rash in the pelvic area. He also has a brownish discoloration of his distal legs due to the patient having chronic leg edema. Neurologic: No seizures. He is able to walk. He has not lost his sensation to touch. PREVIOUS HOSPITALIZATIONS AND OPERATIONS: He has had mitral valve replacement twice. He has had a bone marrow biopsy, surgery on a deviated septum, a right knee surgery, a right shoulder surgery, an abdominal hernia repair, and multiple esophagogastroduodenoscopies. MEDICAL DISEASES: Positive for mitral valve disease for which he has had replacement twice. He also has ischemic cardiomyopathy, congestive heart failure, pulmonary hypertension, chronic obstructive pulmonary disease, obstructive sleep apnea, morbid obesity, atrial arrhythmias including atrial flutter and atrial fibrillation, coronary artery disease, status post angioplasty and stenting, moderate aortic stenosis, chronic venous insufficiency - especially of the legs and abdomen, hypertension, hyperlipidemia, diabetes mellitus, chronic kidney disease, non-Hodgkin's lymphoma, and gout. PAST SURGICAL HISTORY: The patient has also had a cardiac catheterization with placement of coronary artery stents. SOCIAL HISTORY: The patient is a former smoker. He quit smoking in 1993. He is . He lives with his . He is a retired financial legal assistant. He does not drink alcoholic beverages or abuse drugs. He has dogs for a pet. As I mentioned earlier, the patient was short of breath when he had penicillin approximately 50 years ago but since that time, he has had Keflex and he tolerates it well. HOME MEDICATIONS: Include Lexapro, Plavix, omeprazole, Tums, Eliquis, carvedilol, colchicine, multivitamin, Jessica-Colace, spironolactone, digoxin, and Lasix. ALLERGIES: The patient's allergies are to Reglan, penicillin, sulfa, tetanus toxoid, propofol, and Levaquin. PHYSICAL EXAMINATION: Vital Signs: Temperature is 97.3 degrees, pulse 87, respirations 15, blood pressure 112/64. The patient is 5 feet 10 inches tall and weighs 326 pounds. General: This is a morbidly obese, elderly male. He is in no acute distress. Head, Eyes, Ears, Nose, and Throat: He can hear my spoken words. He can see near objects. There is no drainage from the nose or ears. He does not have any white patches in his mouth. Neck: No meningismus. Lungs: Breath sounds were distant. There were bibasilar rales. Cardiovascular: Heart tones were distant. The heart rate was irregular. Abdomen: Soft, protuberant. It is not tender. There may well be some ascites present in his abdomen but, as mentioned above, there was no tenderness. Neurologic: The patient is alert. He can move his extremities. There is no tremor. His sensation was intact to touch. His memory as regarding his medical history was slightly decreased. Pelvic Examination: The patient's scrotum was edematous and there were areas of erythema as well. Integument: In the pelvic area, there was an erythematous rash which I think is due to candidiasis. In addition, the patient has a brownish discoloration of both distal legs, most likely due to chronic leg edema. Neurologic: The patient is awake. He can move his extremities. There is no tremor. His sensation was intact to touch. His memory as regarding his medical history was slightly reduced. Thank you for the consult. cc: Cortez Helm MD
[2019-02-22] MEDS: MYCAMINE 100 MG in NS 100 ML IV SCH (15:39)
[2019-02-22] MEDS: ZYVOX PO SCH ×3 (15:39→20:43)
[2019-02-22] MEDS ORDERED: MORPHINE IV ONE (16:30)
[2019-02-22] MEDS: MAXIPIME 2 GM in NS 100 ML IV SCH (16:48)
--- NOTE | 2019-02-22 19:56 | Diag Imaging Result Doc PS360 ---
EXAM: US SCROTUM HISTORY: swelling TECHNIQUE: Scrotal ultrasound COMPARISON: None. FINDINGS: Edematous cutaneous tissue. There are moderate-sized bilateral hydroceles. No testicular mass. Marked enlargement to the left epididymis. Mildly prominent right epididymis. IMPRESSION: Bilateral hydroceles with left-sided epididymitis and possibly right-sided epididymitis. Electronically signed by Quincy Ward 02/22/2019 7:53 PM
--- NOTE | 2019-02-22 20:02 | Diag Imaging Result Doc PS360 ---
EXAM: US ABDOMEN-COMPLETE HISTORY: Dyspnea, CHF, Ascites TECHNIQUE: Abdominal ultrasound COMPARISON: None. FINDINGS: Normal inferior vena cava. The pancreas and aorta are obscured. The liver is enlarged measuring over 21 cm in length. No focal hepatic abnormality. The gallbladder is contracted. No stones. The common bile duct measures 4 mm. Normal kidneys. No hydronephrosis. The spleen measures 17.8 cm in length. Moderate to prominent ascites. IMPRESSION: 1.Ascites 2.Hepatosplenomegaly Electronically signed by Quincy Ward 02/22/2019 8:00 PM
[2019-02-22 20:05] LABS: URINE SOURCE CATH
[2019-02-22 20:09] LABS: BILIRUBIN URINE NEGATIVE (NEGATIVE); BLOOD URINE TRACE (NEGATIVE); COLOR YELLOW; GLUCOSE URINE NEGATIVE (NEGATIVE); KETONE URINE NEGATIVE (NEGATIVE); LEUKOCYTES URINE SMALL (NEGATIVE); NITRITE URINE NEGATIVE (NEGATIVE); PROTEIN URINE NEGATIVE (NEGATIVE); SP GRAVITY URINE 1.006; TURBIDITY URINE CLEAR (CLEAR); UR EPITHELIAL CELLS <10 /HPF (<10); URINE BACTERIA NEGATIVE /HPF; URINE RBC <10 /HPF (<10); URINE WBC <10 /HPF (<10); UROBILINOGEN URINE NORMAL (NORMAL)
--- NOTE | 2019-02-22 22:05 | CONSULTATION ---
DATE OF CONSULTATION: 02/22/2019 CHIEF COMPLAINT: Difficulty with Dejesus catheter placement. HISTORY OF PRESENT ILLNESS: Mr. Shelby is a 68-year-old with ischemic cardiomyopathy with ejection fraction around 30 to 50%, morbid obesity, mitral valve disorder, diabetes, hypertension, COPD, history of non-Hodgkin's lymphoma, mass, CORRAL cirrhosis, prior DVT, difficult Dejesus catheters due to urethral stricture, who presents for consultation regarding Dejesus catheter insertion. The patient was admitted to the hospital on 02/21/2019 due to worsening fluid overload status. The patient had gained approximately 50 pounds over the past week with edema in both the abdomen as well as scrotal area that was uncomfortable. He presented to the emergency room. The patient underwent a chest x-ray which showed cardiomegaly as well as bilateral pleural effusions. The patient had stable renal function with creatinine of 1.8 with an elevated proBNP at 13,464. The patient was given Lasix in the emergency room and admitted to the ICU for further management. The patient had a scrotal ultrasound as well as abdominal ultrasound today, which showed ascites as well as bilateral hydroceles with possible epididymitis. The patient presents in consult for placement of difficult catheter. The patient had attempt by nursing staff, but due to scrotal edema, was unable to place. Urology was consulted for further recommendations. The patient has previously been seen by Dr. Fallon and myself regarding difficult catheter placement due to scrotal edema. PAST MEDICAL HISTORY: 1. Mitral valve disorder. 2. Ischemic cardiomyopathy. 3. Pulmonary hypertension. 4. COPD. 5. Obstructive sleep apnea. 6. Morbid obesity. 7. Type 2 diabetes. 8. Hypertension. 9. Hyperlipidemia. 10. Chronic kidney disease. 11. CORRAL cirrhosis. 12. Non-Hodgkin's lymphoma. PAST SURGICAL HISTORY: 1. Mitral valve replacement x2. 2. Percutaneous coronary interventions. 3. Bone marrow biopsies. 4. Deviated septum surgery. 5. Right knee surgery. 6. Right shoulder surgery. 7. Abdominal hernia repair. 8. Multiple EGDs. 9. Difficult catheter insertion. ALLERGIES: 1. Reglan. 2. Penicillin. 3. Sulfa. 4. Tetanus toxoid. 5. Propofol. 6. Levaquin. HOME MEDICATIONS: 1. Lexapro 10 mg p.o. at bedtime. 2. Plavix 75 mg p.o. 3. Omeprazole 20 mg p.o. 4. Eliquis 5 mg p.o. b.i.d. 5. Carvedilol 3.25 mg b.i.d. 6. Colchicine 0.6 mg p.o. 7. Colace 1 tablet b.i.d. 8. Prolactin 100 mg daily. 9. Folic acid 1 mg p.o. daily. 10. Digoxin 125 mcg p.o. daily. 11. Lasix 80 mg p.o. daily. SOCIAL HISTORY: Patient is a former smoker, who quit in 1993. The patient denies alcohol or illicit drug use. FAMILY HISTORY: Denies family history of malignancy. REVIEW OF SYSTEMS: Twelve-point review of systems. All pertinent positives and negatives in HPI. PHYSICAL EXAMINATION: Vital Signs: Temperature 97.3, heart rate 74, oxygen saturation 95% on BiPAP, respiratory 10, blood pressure 116/63. General: Mild increased work of breathing. Alert and oriented x3. HEENT: Normocephalic, atraumatic. Pupils equal, round, reactive to light. Mucous membranes moist. Respiratory: Good respiratory effort. Slight wheezing at the bases. Patient currently on BiPAP. Heart: Distant heart sounds, 2+ lower extremity edema. : No suprapubic tenderness, significant scrotal edema with difficulty visualizing the phallus and meatus due to overlying edema. Bilateral testicles were palpated and nontender to palpation. No evidence of crepitus or erythema. The patient has a large amount of excoriated areas in the right groin concerning for candidal infection. Abdomen: Quite distended and appears to have ascites. The patient is moving all extremities. Neurologic: Gross motor and sensory intact. Skin: Evidence of inguinal candidal infection. LABS: White blood cell count 5.9, hemoglobin 10.9, hematocrit 34.4, platelets 186. Sodium 140, potassium 4.3, chloride 107, bicarb 22, BUN 34, creatinine 1.7, glucose 90. Bilirubin 1.9 per the intrahepatic peptide 13,464. IMAGING DATA: Ultrasound images reviewed from 02/22/2019, showed bilateral hydroceles with significant edema of the scrotal wall. Slight increase within the epididymis bilaterally, with obvious signs of epididymitis. ASSESSMENT AND PLAN: Mr. Shelby is a 68-year-old with: 1. History of cardiomyopathy. 2. Mitral valve replacement. 3. Chronic obstructive pulmonary disease. 4. Obstructive sleep apnea. 5. Morbid obesity. 6. Hypertension. 7. Hyperlipidemia. 8. Type 2 diabetes. 9. Nonalcoholic steatohepatitis (CORRAL) cirrhosis. 10. Chronic kidney disease, stage 3. 11. Non-Hodgkin lymphoma. 12. Presented in evaluation for difficult catheter placement. The patient has been seen previously by Dr. Fallon and myself for similar presentation. The patient has had significant scrotal edema, which limits placement of catheter by nursing staff. Urology was consulted for assistance. On exam, the patient has a large amount of scrotal edema. I was able to maneuver this down and visualize the meatus. I attempted to pass a 16-Welsh Dejesus catheter. However, this would not go into the meatus itself. Ultimately obtained a ZIPwire which passed easily into the bladder and coiled. Was able then to pass a 14-Welsh silicone catheter over the wire and into the bladder and inflated with 10 mL sterile water and placed to gravity drainage. Yellow urine was seen through the catheter with approximately 400 mL drained during my evaluation. Patient has a large amount of scrotal edema, likely from baseline cardiac dysfunction. The patient ultrasound appears to be relatively normal with evidence of small bilateral hydroceles with good blood supply to both testicles without concern for infection at this time. The patient has a normal inflammatory count with white blood cell count of 5.9 today. The patient remains afebrile. The patient does have a large amount of inguinal candidal infection, has been followed by Infectious Disease and been started on Diflucan for this, recommend continue this. Obvious excoriations and stellate lesions were seen. Would leave catheter in for now as patient is diuresing. The patient likely to keep indwelling catheter until outpatient followup or scrotal edema improves. The patient was minimally ambulatory due to chronic medical condition. We will continue to monitor from urologic standpoint. Please call with questions or concerns. cc: Conner Ellis MD MTDD
[2019-02-23] MEDS: MORPHINE IV PRN ×4 (02:43→21:07)
[2019-02-23] MEDS: DUONEB (A & A) INH PRN ×2 (03:20→07:55)
[2019-02-23] MEDS: MAXIPIME 2 GM in NS 100 ML IV SCH ×2 (05:18→17:28)
[2019-02-23] MEDS: HUMALOG SUBQ SCH ×4 (06:25→21:09)
--- NOTE | 2019-02-23 07:25 | INFECTIOUS DISEASE PROGRESS NO ---
DATE: 02/23/2019 PRESENT ILLNESS: The patient has marked fluid retention. His scrotum is edematous but I do feel there are some areas that are erythematous which would indicate that there is a cellulitis involved. The patient, on ultrasound, was found to have bilateral epididymitis also. The patient has a rash on the lower part of his abdomen and into the pelvis. This could be due to a tiburcio infection. The patient does have a large abdomen and there may be ascites present but I doubt that he has spontaneous bacterial peritonitis. MEDICATIONS: The patient is on a combination of cefepime, Zyvox, and micafungin. This is day 1 for treatment with those 3 agents. PHYSICAL EXAMINATION: Vital Signs: Temperature is 97.8 degrees, pulse 76, respirations 15, blood pressure 109/64. General: This is a morbidly obese, elderly male. He is wearing a BiPAP mask but does not appear to be in any acute distress at this time. Head, Eyes, Ears, Nose, and Throat: It was difficult for me to talk to the patient because he is wearing a BiPAP mask. He did hear my spoken words and he could see near objects. I did not notice any drainage from his nose or ears. I could not get a good look into the patient's oral cavity. Neck: He does not have any neck pain when he bends his neck or if he moves his head. Lungs: There were distant breath sounds. I did not hear any rales. Cardiovascular: Heart tones were irregular. The heart tones are diminished also. Abdomen: Protuberant. It is not tender. Neurologic: The patient is awake. He can move his extremities. There is no tremor. Extremities: Both legs are edematous and distally, they have a brownish discoloration, most likely secondary to prolonged venous stasis with breakdown of blood and causing the discoloration on the legs. The patient's PICC site in the left arm was bleeding but it has stopped bleeding today. LAB AND X-RAY: There is no new lab for today. A urine culture is pending. Ultrasound of the scrotum showed epididymitis. Chest x-ray shows bibasilar infiltrates and effusions. The patient is scheduled today to have a paracentesis of the abdomen under ultrasound guidance. On chest x- ray, there are some bibasilar infiltrates along with effusion. ASSESSMENT AND PLAN: The patient has scrotal edema and there is some evidence of cellulitis. The scrotum actually looks better today than it did yesterday. He has, on ultrasound, epididymitis. The patient is going to have an abdominal paracentesis which would be helpful to determine if the patient has peritonitis or not. The patient may have a pneumonia as well. This current antibiotic treatment should cover most likely pathogens. In addition, I have ordered a procalcitonin level. The patient has a diffuse erythematous rash in the pelvic area and lower abdomen. This could be due to a fungal agent. For the possible infections as mentioned above, I plan to continue with his current antimicrobial agents which include cefepime, Zyvox, and micafungin. COMORBIDITIES: He is morbidly obese. He has COPD, obstructive sleep apnea, morbid obesity, and the patient also is a diabetic. cc: Cortez Helm MD MTDD
[2019-02-23 08:41] LABS: CALCIUM 8.7 mg/dL (8.8-10.2); CREATININE 1.8 mg/dL (0.7-1.2); MAGNESIUM 2.2 mg/dL (1.5-2.7); POTASSIUM 4.9 mmol/L (3.5-5.1)
[2019-02-23 10:30] LABS: HEMATOCRIT 36.7 % (42.0-52.0); HEMOGLOBIN 11.4 g/dL (14.0-18.0); MCH 30.8 PG (27-31); MCHC 31.1 g/dL (33-37); MCV 99.2 FL (81-99); MPV 10.1 FL (7.4-10.4); RBC 3.7 XMIL (4.7-6.1); RDW 17.8 % (11.5-14.5); WBC 6.07 X1000 (4.8-10.8)
[2019-02-23] MEDS: LASIX IV SCH ×3 (10:42→22:02)
[2019-02-23] MEDS: ALDACTONE PO SCH (10:43)
[2019-02-23] MEDS: COREG PO SCH ×2 (10:43→21:08)
[2019-02-23] MEDS: ICAR-C PO SCH ×2 (10:43→21:08)
[2019-02-23] MEDS: CENTRUM SILVER PO SCH (10:43)
[2019-02-23] MEDS: ZYVOX PO SCH ×2 (10:44→21:08)
[2019-02-23] MEDS: FOLIC ACID PO SCH (10:44)
[2019-02-23] MEDS: LANOXIN PO SCH (10:44)
[2019-02-23] MEDS: PLAVIX PO SCH (10:44)
[2019-02-23] MEDS: COLCRYS PO SCH (10:44)
--- NOTE | 2019-02-23 11:47 | PROGRESS NOTE ---
DATE: 02/23/2019 SUBJECTIVE: The patient presented yesterday as difficult Dejesus catheter placement. The patient had to have a catheter placed over a wire due to patient's scrotal edema and penile anatomy. The patient's catheter was inserted and had good return of drainage. Catheter has drained over 1600cc since yesterday. The patient denies any pain and states his breathing is improved. OBJECTIVE: Vital signs: Temperature 97.3 degrees, heart rate 77, blood pressure 91/53, oxygen saturation 94% on a Venturi mask. General: No acute distress. Resting comfortably in bed. Respiratory: Good respiratory effort with signs of increased work of breathing while on Venturi mask. Abdomen: Obese. No tenderness to palpation or rebound tenderness. Genitourinary: Urethral catheter in place draining clear yellow urine. The patient has significant scrotal edema as well as suprapubic edema. A large amount of erythematous lesions that appear to be a candidal infection present on the right groin with multiple satellite lesions present. Musculoskeletal: Moving all extremities. LABORATORY DATA: White blood cell count 6.1, hemoglobin 11.4, hematocrit 36.7, platelets 153,000. Sodium 138, potassium 4.9, chloride 105, bicarb 20, BUN 34, creatinine 1.8, glucose 80, calcium 8.7. ASSESSMENT AND PLAN: Mr. Shelby is a 68-year-old with history of mitral valve disorder, ischemic cardiomyopathy, pulmonary hypertension, chronic obstructive pulmonary disease, obstructive sleep apnea, morbid obesity, type 2 diabetes, hypertension, hyperlipidemia, chronic kidney disease, nonalcoholic steatohepatitis cirrhosis, non Hodgkin lymphoma, who presents in consultation regarding difficult catheter placement. The patient had a catheter placed over a wire yesterday which has drained well. The patient has had 1600 of urinary output. The patient remains afebrile, no evidence of hematuria. The patient states that his breathing has improved. He continues to have a significant amount of suprapubic and scrotal edema. The patient had a scrotal ultrasound yesterday which showed small hydroceles bilaterally as well as significant scrotal edema. I would encourage him to continue to elevate his scrotum, but I think that his edema is likely systemic in origin related to his congestive heart failure, chronic kidney disease and underlying cirrhosis. We will keep indwelling catheter in at this time. Please call with questions or concerns. cc: Conner Ellis MD [facility]
--- NOTE | 2019-02-23 12:47 | PROGRESS NOTE ---
DATE: 02/23/2019 SUBJECTIVE: Patient has no major complaints. He is laying in bed with a face mask. OBJECTIVE: Vital Signs: Blood pressure 91/53, heart rate 77, respiratory rate 17, temperature 97.3 degrees, satting 94% on 40%. Cardiovascular: Regular rate and rhythm. Pulmonary: Diminished throughout. Rales at the bases. GI: Soft, protuberant. Definitely less distention since yesterday since paracentesis. He has a bright red rash in his pannus in his perineal area with small red punctate lesions at the base of the rash consistent with satellite lesions seen and candidiasis. LABORATORY DATA: White count 6, H and H 11 and 36, platelets 156. Creatinine 1.8. Digoxin was only 0.3. PROBLEM LIST: 1. Acute congestive heart failure exacerbation. He has got an ejection fraction around 35%. We will continue diuretics. He is still very ill. Cardiology is following. He has not been as compliant at least with followups previously. 2. Ascites related to congestive heart failure and presumably not primary liver disease. He is status post paracentesis and they got about 6 liters off. We are waiting for fluid analysis to rule out peritonitis. He has had that in the past. Infectious Disease has been consulted and have adjusted his antibiotics. 3. Isaura intertrigo. He is on micafungin per Dr. Helm. We will continue to monitor. I think that will be day 2. DISPOSITION: He is still requiring a significant amount of O2, so we will continue to monitor. Repeat chest x-ray tomorrow. cc: Ken Rodas MD
--- NOTE | 2019-02-23 12:59 | Diag Imaging Result Doc PS360 ---
US ABD PARACENTESIS W S/I - 02/23/2019 INDICATION: ascites COMPARISON: None FINDINGS: The risks and benefits of the procedure were discussed with the patient. All questions were answered. Written and verbal consent was obtained. Ultrasound scanning demonstrated ascites. Overlying skin was prepped and draped in sterile fashion. Anesthesia was achieved with injection of 10 cc 1% lidocaine. The paracentesis catheter was advanced until the return of ascites fluid. 6.3 L was aspirated. The catheter was withdrawn intact. The patient reported no symptoms from the procedure. IMPRESSION: Successful and uncomplicated ultrasound-guided paracentesis. Electronically signed by Duane Ty 02/23/2019 12:56 PM
[2019-02-23] MEDS: MYCAMINE 100 MG in NS 100 ML IV SCH (14:17)
--- NOTE | 2019-02-23 18:50 | PROGRESS NOTE ---
DATE: 02/23/2019 SUBJECTIVE: Patient had large volume paracentesis performed. Reports feeling better. He denies any shortness of breath or chest discomfort. OBJECTIVE: Vital Signs: Blood pressure 92/58, heart rate 98. Oxygen saturation 96% on oxygen mask. Neck: Jugular venous distention, suggests elevated central venous pressure. Chest: Auscultation of the chest reveals diminished breath sounds at bases bilaterally. Cardiac: Reveals a regular rate and rhythm without appreciable murmur or gallop. Heart sounds are somewhat distant. Abdomen: Less distended than yesterday and nontender. Bowel sounds are audible. Extremities: Demonstrate moderate edema with chronic stasis changes. LABORATORY DATA: Includes a white blood cell count of 6.07, hematocrit 36.7, hemoglobin 11.4, platelet count 156,000. Sodium 138, potassium 4.9, chloride 105, carbon dioxide 20, BUN 34, creatinine 1.8, glucose 100. IMPRESSION: 1. Acute on chronic biventricular congestive heart failure predominantly right-sided with associated anasarca and ascites, as well as scrotal edema. 2. Mitral valve disorder. Previous mitral valve replacement in 2009 and transcutaneous mitral valve prosthesis placement in October 2018. 3. Aortic valve disorder with moderate aortic stenosis. 4. Ischemic cardiomyopathy with left ventricular ejection fraction 30-35%. 5. Atherosclerotic coronary disease. 6. Significant pulmonary hypertension, chronic. 7. Obstructive sleep apnea. 8. Morbid obesity. 9. Hypertension. 10. Hyperlipidemia. 11. Type 2 diabetes mellitus. 12. Acute on chronic kidney disease. 13. Cirrhosis with albumin of 3.5. 14. Possible hypothyroidism suggested by elevated TSH in August of this year and again this admission. 15. Previous spontaneous bacterial peritonitis in November of this year. RECOMMENDATIONS: 1. Given limited response to IV Lasix, will increase dose to 80 mg IV q.12. 2. Agree with repeat full thyroid panel. Consider initiation of low-dose thyroid hormone replacement. cc: Santo Horton MD
[2019-02-23] MEDS: PERICOLACE PO PRN (21:08)
[2019-02-24] MEDS: MORPHINE IV PRN ×4 (02:48→22:26)
[2019-02-24 05:41] LABS: HEMATOCRIT 34.9 % (42.0-52.0); HEMOGLOBIN 10.9 g/dL (14.0-18.0); MCH 30.5 PG (27-31); MCHC 31.2 g/dL (33-37); MCV 97.8 FL (81-99); MPV 9.7 FL (7.4-10.4); RBC 3.57 XMIL (4.7-6.1); RDW 17.3 % (11.5-14.5); WBC 6.19 X1000 (4.8-10.8)
[2019-02-24 06:07] LABS: AGAP 13; ALB/GLOB RATIO 0.9; ALBUMIN 2.9 g/dL (3.5-5.0); ALKALINE PHOSPHATASE 179 U/L (32-122); BUN 37 mg/dL (8-22); CALCIUM 9.1 mg/dL (8.8-10.2); CHLORIDE 104 mmol/L (98-107); COSMO 283; CREATININE 1.9 mg/dL (0.7-1.2); ESTIMATED GFR 36; GLUCOSE 81 mg/dL (70-104); GOT 15 U/L (10-34); GPT < 5 U/L (10-44); POTASSIUM 4.4 mmol/L (3.5-5.1); SODIUM 138 mmol/L (136-145); TCO2 21 mmol/L (25-35); TOTAL BILIRUBIN 1.71 mg/dL (0.20-1.00); TOTAL PROTEIN 6.1 g/dL (6.3-8.3)
[2019-02-24] MEDS: HUMALOG SUBQ SCH ×4 (06:26→20:36)
--- NOTE | 2019-02-24 07:02 | INFECTIOUS DISEASE PROGRESS NO ---
DATE: 02/24/2019 PRESENT ILLNESS: The patient has a scrotal cellulitis and epididymitis. The cellulitis has improved quite a bit. In addition, the patient has Isaura dermatitis involving the pelvic area and lower part of the abdomen. This too seems to be doing much better. The patient did have an abdominal paracentesis performed yesterday. MEDICATIONS: This is day 2 of treatment with a combination of cefepime, Zyvox, and micafungin. PHYSICAL EXAMINATION: Vital Signs: Temperature is 98 degrees, pulse 125, respirations 15, blood pressure 93/67. General: The patient is morbidly obese. He is elderly. He is wearing an oxygen mask, and not a BiPAP mask. He is in no acute distress. HEENT: He can hear my spoken words and see near objects. I did not see any white patches on his tongue. Neck: No meningismus. Lungs: Distant breath sounds. I heard some rales in the bases. Cardiovascular: Heart rate is irregular. Abdomen: Soft and nontender. It is protuberant. Neurologic: The patient is alert. He can move his extremities. There is no tremor. IMAGING AND LABORATORY DATA: The patient yesterday had an ultrasound for getting off ascites, and it was successful. The patient does not have an x-ray today. Yesterday, he did have an ultrasound which was done to get a paracentesis. CBC shows a white count of 6190, hemoglobin 10.9, platelet count is 138,000. Creatinine is 1.9. GFR is 36. Alkaline phosphatase is 179. Urine culture is negative. Dr. Rodas did order tests on the ascites aspirated yesterday. ASSESSMENT AND PLAN: The patient has scrotal cellulitis and epididymitis and Isaura dermatitis. I plan on continuing the current antibiotics the patient is receiving pending the result of the ascites tests. COMORBIDITIES: Include the following: Morbid obesity, COPD, obstructive sleep apnea, and diabetes mellitus. cc: Cortez Helm MD [facility]ITALAbbie
--- NOTE | 2019-02-24 07:06 | INFECTIOUS DISEASE PROGRESS NO ---
DATE: 02/24/2019 ADDENDUM: I have looked in the computer and Dr. Rodas did order multiple tests on the peritoneal fluid, which have not yet come back. cc: Cortez Helm MD
--- NOTE | 2019-02-24 08:32 | PROGRESS NOTE ---
DATE: 02/24/2019 INTERVAL HISTORY: No acute events overnight. SUBJECTIVE: Patient is feeling much better than on presentation. He states he takes Plavix and Eliquis at home for his history of blood clots, coronary artery disease, as well as mitral valve. He states that he has not been started on Coumadin since his mitral valve procedure early in 2018. He also wants me to resume his allopurinol. He is not feeling short of breath at the moment. We discussed about exam findings and ordering physical therapy as well. His urine catheter was placed, and the urology team has recommended to keep it in. OBJECTIVE: Vital Signs: Currently vitals temperature 98 degrees. His pulse is listed to be 125, however on bedside monitor currently is in normal sinus rhythm with pulse in 70s. His blood pressure is 90s/60s. MAP more than 70 mmHg. He is on 40% Venturi mask. PHYSICAL EXAMINATION: General: Morbidly obese not in any acute distress. He has a Ventimask on. Left-sided PICC line urine catheter. Oral cavity is moist. Lungs: Air entry bilaterally equal. No wheeze or rhonchi. Bilateral crackles. Cardiovascular: S1, S2 normal. No murmur, rub, or gallop. Abdomen: Obese and has visible ascites with dullness to percussion on flanks. Bowel sounds could not be appreciated. Extremities: He has bilateral lower extremity edema extending up to thigh and scrotal edema. There is some tinea cruris affecting bilateral groins. LABS: Currently suggestive of normocytic anemia, normal platelet count. He does have baseline chronic kidney disease stage III to stage IV. He has elevated total bilirubin, which is chronic, and elevated alkaline phosphatase, which is chronic, likely in the setting of his congestive hepatopathy. He has TSH which is elevated, and his free T4 is low. He is not listed to be taking levothyroxine, which I would consider adding. ASSESSMENT AND PLAN: 1. Acute exacerbation of chronic systolic congestive heart failure with ejection fraction of 35%. Continue intravenous diuresis as per Cardiology recommendation. Continue his home carvedilol spironolactone. He is not listed to be taking any JEN inhibitors. I will continue his home digoxin as well. 2. History of coronary artery disease and recent mitral valve procedure in 2009, as well as 2019. Continue his home clopidogrel and Eliquis. The patient states he has not been taking warfarin since October 2018. 3. Tinea cruris with excoriations on both groin and scrotum, and suspected bibasilar infiltrate and effusion similar to prior. Continue intravenous cefepime and linezolid with intravenous micafungin as per Infectious Disease recommendation. I would anticipate rapid deescalation of antibiotics considering his symptoms improved after diuresis, and he does not have leukocytosis. DISPOSITION: I will continue to monitor patient in [facility] for his heart failure exacerbation. Plan of care discussed with him. All of his questions have been answered. cc: Kalen Neely MD
[2019-02-24] MEDS: ELIQUIS PO SCH ×2 (09:08→20:37)
[2019-02-24] MEDS: ICAR-C PO SCH ×2 (09:08→20:37)
[2019-02-24] MEDS: COLCRYS PO SCH (09:08)
[2019-02-24] MEDS: PLAVIX PO SCH (09:08)
[2019-02-24] MEDS: ALDACTONE PO SCH (09:08)
[2019-02-24] MEDS: MAXIPIME 2 GM in NS 100 ML IV SCH ×2 (09:08→20:35)
[2019-02-24] MEDS: FOLIC ACID PO SCH (09:08)
[2019-02-24] MEDS: LANOXIN PO SCH (09:08)
[2019-02-24] MEDS: CENTRUM SILVER PO SCH (09:08)
[2019-02-24] MEDS: COREG PO SCH ×2 (09:09→20:37)
[2019-02-24] MEDS: ZYVOX PO SCH ×2 (09:09→20:37)
[2019-02-24] MEDS: LASIX IV SCH ×2 (10:56→22:27)
[2019-02-24] MEDS: MYCAMINE 100 MG in NS 100 ML IV SCH (16:04)
[2019-02-24] MEDS: DUONEB (A & A) INH PRN (19:44)
[2019-02-25] MEDS: MORPHINE IV PRN ×7 (02:02→23:33)
[2019-02-25 06:01] LABS: HEMATOCRIT 33.9 % (42.0-52.0); HEMOGLOBIN 10.6 g/dL (14.0-18.0); MCH 30.4 PG (27-31); MCHC 31.3 g/dL (33-37); MCV 97.1 FL (81-99); MPV 9.8 FL (7.4-10.4); RBC 3.49 XMIL (4.7-6.1); RDW 17.3 % (11.5-14.5); WBC 5.42 X1000 (4.8-10.8)
[2019-02-25] MEDS: HUMALOG SUBQ SCH ×4 (06:03→20:50)
[2019-02-25] MEDS: SYNTHROID PO SCH (06:06)
[2019-02-25 06:13] LABS: ALB/GLOB RATIO 0.9; ALBUMIN 2.8 g/dL (3.5-5.0); CALCIUM 9.4 mg/dL (8.8-10.2); POTASSIUM 3.8 mmol/L (3.5-5.1); TOTAL BILIRUBIN 1.49 mg/dL (0.20-1.00); TOTAL PROTEIN 5.9 g/dL (6.3-8.3)
--- NOTE | 2019-02-25 06:52 | INFECTIOUS DISEASE PROGRESS NO ---
DATE: 02/25/2019 ADDENDUM: I ordered fluconazole to treat the patient's pelvic Isaura dermatitis. However, there were many interactions with fluconazole with medications the patient is receiving, so I will not put the patient on fluconazole but instead I have ordered clotrimazole cream to be put on the patient's rash in the pelvic area every 12 hours. cc: Cortez Helm MD
--- NOTE | 2019-02-25 06:55 | INFECTIOUS DISEASE PROGRESS NO ---
DATE: 02/25/2019 PRESENT ILLNESS: The patient has scrotal cellulitis and epididymitis. He also has Isaura dermatitis involving the pelvic area. Also, the patient may have pneumonia. MEDICATIONS: This is the third day of treatment with the combination of cefepime, Zyvox, and micafungin. PHYSICAL EXAMINATION: Vital Signs: Temperature is 97.9 degrees, pulse 69, respirations 17, blood pressure 92/49. General: This is a morbidly obese ill-appearing elderly male. He is in no acute distress. He is wearing a BiPAP mask now. Head, Eyes, Ears Nose and Throat: He can hear my spoken words and see near objects. He does not have any white patches on his tongue. His sinuses are not tender. Neck: He does not have any neck pain when he moves his head or neck. Lungs: Distant breath sounds. I heard some bibasilar rales. Cardiovascular: The patient is in atrial flutter. On auscultation sometimes the heart rate is regular and then at other times it is irregular. Abdomen: Soft and not tender. There was ascites present, but 2 days ago, the patient had an abdominal paracentesis. Neurologic: Patient is alert. He can move his extremities. There is no tremor. Pelvic: The patient does have scrotal edema but there is no erythema suggestive of cellulitis. Likewise, almost all the erythematous rash the patient had in the pelvic area and a little part of the abdomen is clearing up well also. Extremities: The patient has a brownish discoloration of the distal part of both legs due to chronic venous stasis in the legs. LAB AND X-RAY: CBC today shows a white count of 5420, hemoglobin 10.6, and platelet count 128,000. Procalcitonin is 0.25 which means it could be either unlikely or likely that the patient has pneumonia. As regarding the patient's ascitic fluid that was obtained by abdominal paracentesis, tests were ordered by Dr. Rodas, but I cannot find any tests in the computer that were actually done on the peritoneal fluid. ASSESSMENT AND PLAN: The patient's scrotal cellulitis has cleared up. His Isaura dermatitis is improving. The patient does have epididymitis. I have ordered a chest x-ray for today and for now what I am going to plan to do is stop all of his antibiotics and antifungal agent and put the patient on p.o. Ceftin to treat the epididymitis and possibly treat a pneumonia if it shows up on chest x-ray. I would like to use Levaquin orally but the patient is allergic to it. If there is no adverse interaction, I will put the patient on p.o. fluconazole to continue treatment of his Isaura dermatitis. COMORBIDITIES: The patient is morbidly obese. He has COPD, obstructive sleep apnea, and diabetes mellitus. ADDENDUM: There are adverse interactions between fluconazole and some of the patient's other meds so I will use clotrimazole cream instead of fluconazole. cc: Cortez Helm MD MTDD
--- NOTE | 2019-02-25 07:39 | Diag Imaging Result Doc PS360 ---
EXAM: CHEST-1 VIEW 02/25/2019 HISTORY: pneumonia TECHNIQUE: AP portable at 0639 COMMENT: There is a left-sided PICC line with its tip in the superior vena cava. There are bilateral pleural effusions which may be loculated. There is coarse opacity in both lower lung harden particularly in the left lower lobe. The inspiration is better than on 02/22/2019. There is apparently less loculated fluid than on 02/21/2019 on the right. There has been worsening of the opacities in the left lower lobe since 02/21/2019. IMPRESSION: Atelectasis versus pneumonia with small bilateral pleural effusions. Electronically signed by Gilbert Carrillo 02/25/2019 7:36 AM
[2019-02-25] MEDS: CENTRUM SILVER PO SCH (08:53)
[2019-02-25] MEDS: COLCRYS PO SCH (08:53)
[2019-02-25] MEDS: LOTRIMIN 1% CREAM TOP SCH ×2 (08:53→20:50)
[2019-02-25] MEDS: ALDACTONE PO SCH (08:53)
[2019-02-25] MEDS: COREG PO SCH ×2 (08:54→20:50)
[2019-02-25] MEDS: LANOXIN PO SCH (08:54)
[2019-02-25] MEDS: ICAR-C PO SCH ×2 (08:54→20:50)
[2019-02-25] MEDS: PLAVIX PO SCH (08:54)
[2019-02-25] MEDS: FOLIC ACID PO SCH (08:54)
[2019-02-25] MEDS: ELIQUIS PO SCH ×2 (08:54→20:50)
[2019-02-25] MEDS ORDERED: DIFLUCAN PO SCH (09:00)
[2019-02-25] MEDS: CEFTIN PO SCH ×2 (10:16→20:49)
--- NOTE | 2019-02-25 10:43 | PROGRESS NOTE ---
DATE: 02/25/2019 INTERVAL HISTORY: No acute events overnight. He has been diuresing well. His chest x-ray in the morning time suggests persistent loculated pleural effusion and bilateral infiltrate which could be just pulmonary edema. He states Physical Therapy did see him yesterday. He denies any chest pain or shortness of breath. We discussed about exam findings. OBJECTIVE: Vital signs: Temperature is 97.8, pulse 66, respiratory rate 19, blood pressure 96/63, saturating 100% on BiPAP. General: Morbidly obese, not in any acute distress. Oral cavity is moist. Air entry bilaterally equal. No wheeze or rhonchi. Bilateral infrascapular crackles. S1 and S2 normal. No murmur, rub or gallop. Abdomen is obese, has ascites, dullness to percussion on flanks. Bowel sounds could not be appreciated. He has large scrotal edema and candidal infection affecting bilateral groins with tinea cruris and erythema. He has a urine catheter. Input and output suggests negative 2.8 L. DIAGNOSTIC DATA: Labs suggestive of normocytic anemia, platelets of 128. He does have what appears to be chronic kidney disease stage 3B with worsening BUN and creatinine. No new microbiological data except urine culture which did not have any growth. Chest x-ray as mentioned above. EKG on 02/22/2019 has atrial fibrillation and previously it had sinus tachycardia. ASSESSMENT AND PLAN: 1. Acute exacerbation of chronic systolic congestive heart failure with ejection fraction of 35%, likely because of medication noncompliance and dietary indiscretion. Continue intravenous Lasix, home carvedilol, spironolactone. 2. History of coronary artery disease with history of mitral valve bioprosthetic replacement in 2009, status post stenosis requiring transcutaneous mitral valve prosthesis placement in 10/2018. Continue clopidogrel, Eliquis, digoxin. 3. Tinea cruris epidermidis and scrotal cellulitis with suspected pneumonia. Continue antibiotics as per Infectious Disease recommendations. He is likely going to be transitioned to p.o. cefuroxime and topical clotrimazole. His IV micafungin has been stopped. Urology had recommended continued Dejesus catheterization considering his active cellulitis in the region. 4. Others. Continue multivitamin, iron carbonate, ascorbic acid and folic acid for chronic anemia; colchicine for history of gout; albuterol and ipratropium nebulization for shortness of breath. DISPOSITION: Continue to monitor the patient in [facility] for close monitoring of cardiorespiratory status. He usually uses BiPAP at nighttime for obstructive sleep apnea. Plan of care discussed with him. All of his questions have been answered. cc: Kalen Neely MD
[2019-02-25] MEDS: DUONEB (A & A) INH PRN (11:12)
[2019-02-25] MEDS: LASIX IV SCH ×2 (11:23→23:28)
--- NOTE | 2019-02-25 16:59 | PROGRESS NOTE ---
DATE: 02/25/2019 SUBJECTIVE: No acute events overnight. The patient had good urinary output through his urethral catheter. The patient overall feels like his breathing has improved. The patient has been up out of bed today, tolerating a diet. Denies any visible changes in his scrotal edema. OBJECTIVE: Vital Signs: Temperature 97.5, pulse rate 74, blood pressure 117/64. Oxygen 90% on nasal cannula. General: No acute distress. Resting comfortably in bed. Alert and oriented x 3. Respiratory: Good respiratory effort without audible wheezing or rales. No increased work of breathing. Abdomen: Obese. No tenderness to palpation or rebound tenderness. No palpable masses. Genitourinary: Urethral catheter in place draining clear yellow urine. The patient has significant scrotal edema as well as some suprapubic edema which seems to be unchanged. Erythematous areas in his groin seem to be improving slightly. LABS: White blood cell count 5.4, hemoglobin 10.6, hematocrit 33.9, platelets 128,000. Sodium 138, potassium 3.8, chloride 102, bicarb 24, BUN 38, creatinine 1.0, glucose 101. ASSESSMENT: Mr. Shelby is a 68-year-old with history of mitral valve disorder, ischemic cardiomyopathy, pulmonary hypertension, chronic obstructive pulmonary disease, chronic kidney disease, nonalcoholic cirrhosis, obstructive sleep apnea, type 2 diabetes, hypertension, hyperlipidemia, non-Hodgkin's lymphoma who presented in consultation regarding difficult catheter placement. The patient has been undergoing vigorous diuresis due to CHF exacerbation. The patient continues to have good urinary output, 3500 mL recorded yesterday. The patient has been improving and is without any issues today. Has been up out of bed. We will continue to monitor from a urologic standpoint, will keep indwelling catheter in until more mobile. Will consider a voiding trial while inpatient and if scrotal edema improves. Please call with questions or concerns. cc: Conner Ellis MD [facility]
--- NOTE | 2019-02-25 18:59 | PROGRESS NOTE ---
DATE: 02/25/2019 SUBJECTIVE: Patient continues without chest discomfort or shortness of breath, on supplemental oxygen per nasal cannula. He reports feeling progressively better. He still has scrotal edema. OBJECTIVE: Vital Signs: Blood pressure 92/47, heart rate 77, oxygen saturation 99% on nasal cannula oxygen. Neck: Jugular venous distention is present, consistent with significantly elevated central venous pressure. Chest: Clear to auscultation bilaterally. Cardiac: Reveals a regular rate and rhythm without appreciable murmur or gallop. Heart sounds are somewhat distant. Abdomen: Less distended and nontender. Bowel sounds audible. Extremities: Demonstrate moderate edema with chronic stasis changes. LABORATORY DATA: Includes a white blood cell count of 5.42, hematocrit 33.9, hemoglobin 10.6, platelet count 128,000. Sodium 138, potassium 3.8, chloride 102, carbon dioxide 24, BUN 38, creatinine 2.0, glucose 113, TSH 13.57 with a free T4 0.81, albumin 2.8. IMPRESSION: 1. Acute on chronic biventricular congestive heart failure, predominantly right-sided, with associated anasarca and ascites as well as scrotal edema. Patient improving with large volume paracentesis and diuresis. 2. Mitral valve disorder. Patient is status post previous mitral valve replacement in 2009 and transcutaneous mitral valve prosthesis placement in October 2018. 3. Aortic valve disorder with moderate aortic stenosis. 4. Ischemic cardiomyopathy with left ventricular ejection fraction of 30% to 35%. 5. Atherosclerotic coronary disease. 6. Significant pulmonary hypertension, chronic. 7. Obstructive sleep apnea. 8. Morbid obesity. 9. Hypertension. 10. Hyperlipidemia. 11. Type 2 diabetes mellitus. 12. Acute on chronic kidney disease. 13. Hypothyroidism, suggested by recent labs. 14. History of previous spontaneous bacterial peritonitis in November of this year. RECOMMENDATIONS: 1. Continue to diurese with intravenous Lasix 80 mg q.12. 2. Agree with initiation of thyroid hormone replacement. cc: Santo oHrton MD
[2019-02-26] MEDS: MORPHINE IV PRN ×6 (03:11→22:36)
[2019-02-26] MEDS: SYNTHROID PO SCH (06:11)
[2019-02-26] MEDS: HUMALOG SUBQ SCH ×4 (06:14→20:51)
[2019-02-26 06:36] LABS: CALCIUM 8.4 mg/dL (8.8-10.2); CREATININE 2.1 mg/dL (0.7-1.2); POTASSIUM 4.1 mmol/L (3.5-5.1)
[2019-02-26] MEDS: ELIQUIS PO SCH ×2 (08:36→20:55)
[2019-02-26] MEDS: COREG PO SCH ×2 (08:36→20:56)
[2019-02-26] MEDS: CENTRUM SILVER PO SCH (08:36)
[2019-02-26] MEDS: COLCRYS PO SCH (08:36)
[2019-02-26] MEDS: LANOXIN PO SCH (08:36)
[2019-02-26] MEDS: LOTRIMIN 1% CREAM TOP SCH ×2 (08:36→22:37)
[2019-02-26] MEDS: FOLIC ACID PO SCH (08:36)
[2019-02-26] MEDS: ICAR-C PO SCH ×2 (08:36→20:55)
[2019-02-26] MEDS: CEFTIN PO SCH ×2 (08:36→20:54)
[2019-02-26] MEDS: PLAVIX PO SCH (08:36)
[2019-02-26] MEDS: ALDACTONE PO SCH (08:37)
[2019-02-26] MEDS: LASIX IV SCH (11:00)
--- NOTE | 2019-02-26 12:39 | PROGRESS NOTE ---
DATE: 02/26/2019 INTERVAL HISTORY: Patient continued to diurese. Did not have any other acute events. His antibiotics were changed to oral antibiotics yesterday. SUBJECTIVE: Patient states he was able to come out of bed, walk in the room using a walker yesterday with Physical Therapy's help. He has not decided about rehab yet. Denies any chest pain or shortness of breath. VITAL SIGNS: Temperature 97.4 degrees, pulse 75, respiratory 17, blood pressure 88/54, saturating 98% on 4 L nasal cannula. PHYSICAL EXAMINATION: General: Morbidly obese, not in any acute distress. He has nasal cannula. HEENT: Oral cavity is moist. Lungs: Air entry bilaterally equal. No wheeze or rhonchi. Bilateral infrascapular crackles. Cardiovascular: S1, S2 normal. No murmur, rub, or gallop. Abdomen: Obese. Ascites. Dullness to percussion on flanks. Bowel sounds could not be appreciated. Genitourinary: Large scrotal edema and associated cellulitis and tinea cruris affecting bilateral groins. Input and output suggest -4.4 L so far today. LABORATORY DATA: BMP suggestive of acceptable range of electrolytes and what appears to be acute kidney injury on chronic kidney disease stage IIIB, likely because of diuresis. ASSESSMENT AND PLAN: 1. Acute exacerbation of chronic systolic congestive heart failure, biventricular failure with ejection fraction of 35% because of medication noncompliance and dietary indiscretion. Continue intravenous Lasix and spironolactone. I will put holding parameters on carvedilol considering his hypotension. 2. History of coronary artery disease, ischemic cardiomyopathy with percutaneous intervention in 2009, left ventricular thrombus, mitral valve bioprosthetic replacement in 2009 and revision processes in October 2018. Continue Eliquis, clopidogrel, carvedilol. He previously did not tolerate statin and JEN inhibitors. 3. History of atrial fibrillation. Continue carvedilol and digoxin and Eliquis. 4. Others. Continue albuterol ipratropium nebulization for shortness of breath; cefuroxime and topical clotrimazole for pneumonia as well as scrotal cellulitis; folic acid and iron for chronic anemia; levothyroxine for new onset hypothyroidism; omeprazole for chronic gastroesophageal reflux disease. 5. Disposition. Continue to monitor patient in [facility] for close cardiorespiratory monitoring. Plan of care discussed with him. All of his questions have been answered. The patient is still making his mind up about whether to go to rehab or not. cc: Kalen Neely MD
[2019-02-26] MEDS: DOBUTAMINE 250 MG/D5W 250 MG/250 ML IV.SOLN IV SCH (13:09)
[2019-02-27] MEDS: LASIX IV SCH ×2 (00:33→14:21)
[2019-02-27] MEDS: DOBUTAMINE 250 MG/D5W 250 MG/250 ML IV.SOLN IV SCH ×2 (00:33→16:16)
[2019-02-27] MEDS: MORPHINE IV PRN ×4 (02:04→21:57)
[2019-02-27] MEDS: HUMALOG SUBQ SCH ×4 (06:02→20:22)
[2019-02-27] MEDS: SYNTHROID PO SCH (06:03)
[2019-02-27 06:07] LABS: CALCIUM 8.4 mg/dL (8.8-10.2); POTASSIUM 3.9 mmol/L (3.5-5.1)
[2019-02-27] MEDS: PLAVIX PO SCH (08:57)
[2019-02-27] MEDS: ELIQUIS PO SCH ×2 (08:57→20:30)
[2019-02-27] MEDS: LANOXIN PO SCH (08:57)
[2019-02-27] MEDS: ICAR-C PO SCH ×2 (08:57→20:29)
[2019-02-27] MEDS: CEFTIN PO SCH ×2 (08:57→20:29)
[2019-02-27] MEDS: COREG PO SCH ×2 (08:57→21:25)
[2019-02-27] MEDS: CENTRUM SILVER PO SCH (08:57)
[2019-02-27] MEDS: FOLIC ACID PO SCH (08:57)
[2019-02-27] MEDS: COLCRYS PO SCH (08:57)
[2019-02-27] MEDS: ALDACTONE PO SCH (08:58)
[2019-02-27] MEDS: LOTRIMIN 1% CREAM TOP SCH ×2 (08:59→21:25)
--- NOTE | 2019-02-27 11:42 | PROGRESS NOTE ---
DATE: 02/27/2019 INTERVAL HISTORY: No acute events overnight. He has been putting out a good amount of urine. He is feeling fine. He has not made up his mind up about rehab yet. He has been started on Dobutamine drip And he is making significant amount of urine on that. VITAL SIGNS: Temperature 98.9 degrees, pulse 95, respiratory rate 17, blood pressure 120/83, saturating 92% to 95% on 3 L nasal cannula. PHYSICAL EXAMINATION: Morbidly obese. Not in any acute distress. He does have facial erythema. He denies any chest pain or shortness of breath. Oral cavity is moist. Lungs: Air entry bilaterally equal. No wheeze or rhonchi. He had mild inspiratory crackles at bilateral inframammary region. S1, S2 normal. No murmur, rub, or gallop. Abdomen: Obese. Ascites. Dullness to percussion on flanks. Bowel sounds could not be appreciated. His scrotal edema associated with cellulitis and tinea cruris affecting bilateral groins is significantly better. Lower extremity edema bilaterally has significantly decreased. He is alert and oriented x3. He is able to lift both upper and lower extremities above ground level. He has a urine catheter. Input and output suggests -5 L in the last 24 hours. Cumulative input and output suggests -16 L. LABS: No CBC today. BMP suggestive of chronic kidney disease stage 3. No microbiological or imaging data. ASSESSMENT AND PLAN: 1. Acute exacerbation of chronic systolic congestive heart failure, biventricular failure with ejection fraction of 35% because of medication noncompliance with Lasix and dietary indiscretion. Continue intravenous Lasix and spironolactone. I am holding carvedilol if he develops hypotension. Continue Dobutamine as per cardiology recs. 2. History of coronary artery disease, ischemic cardiomyopathy with percutaneous intervention in 2009, left ventricular thrombus, mitral valve bioprosthetic replacement in 2009, and revision prosthesis in October 2018. Continue clopidogrel, Eliquis, and carvedilol with holding parameters. He previously did not tolerate statin and JEN inhibitors, and I would defer management to cardiology team. 3. Suspected pneumonia, epididymitis and tinea cruris: Continue oral cefuroxime and topical clotrimazole as per ID recs. 3. History of atrial fibrillation. Continue carvedilol, digoxin, and Eliquis. 4. Others. Continue albuterol ipratropium nebulization for shortness of breath; cefuroxime and topical clotrimazole for scrotal cellulitis as well as tinea cruris; folic acid and iron for chronic anemia; levothyroxine for new onset hypothyroidism; omeprazole for chronic gastroesophageal reflux disease; dobutamine has been ordered by cardiology team for his heart failure. 5. Disposition. Continue to monitor patient in [facility]. I am anticipating discharge in the next 24 to 48 hours, possibly home with home physical therapy. Plan of care discussed with him. All of his questions have been answered. He has not really made up his mind up about rehab yet. cc: Kalen Neely MD MTDD
[2019-02-28] MEDS: LASIX IV SCH ×2 (01:21→13:08)
[2019-02-28] MEDS: MORPHINE IV PRN ×5 (01:29→22:54)
[2019-02-28] MEDS: DOBUTAMINE 250 MG/D5W 250 MG/250 ML IV.SOLN IV SCH (05:15)
[2019-02-28 05:32] LABS: BASO# 0.03 X1000 (0.0-0.2); BASO% 0.5 % (0.0-0.8); EOS# 0.18 X1000 (0.0-0.7); EOS% 2.9 % (0.0-10.0); HEMATOCRIT 34.4 % (42.0-52.0); IMM GRAN# 0.04 X1000 (0.0-0.04); IMM GRAN% 0.7 % (0.0-0.5); LYMPH# 0.71 X1000 (1.2-3.4); LYMPH% 11.6 % (20.5-51.1); MCH 30.1 PG (27-31); MONO# 0.63 X1000 (0.11-0.59); MONO% 10.3 % (1.7-9.3); MPV 10.2 FL (7.4-10.4); NEUT# 4.53 X1000 (1.4-6.5); PLT 128 X1000 (130-400); RBC 3.66 XMIL (4.7-6.1); RDW 17.1 % (11.5-14.5); WBC 6.12 X1000 (4.8-10.8)
[2019-02-28 06:07] LABS: CALCIUM 8.8 mg/dL (8.8-10.2); MAGNESIUM 1.8 mg/dL (1.5-2.7)
[2019-02-28] MEDS: SYNTHROID PO SCH (06:25)
[2019-02-28] MEDS: HUMALOG SUBQ SCH ×4 (06:26→20:42)
--- NOTE | 2019-02-28 06:41 | Diag Imaging Result Doc PS360 ---
EXAM: CHEST-PORTABLE HISTORY: CHF TECHNIQUE: Portable chest single view COMPARISON: 02/25/2019 FINDINGS: Poor inspiratory effort. The heart is enlarged. Mild vascular distention. There are infiltrates in the right lung and left base as well as atelectasis. Small pleural effusions. IMPRESSION: No interval improvement. Electronically signed by Quincy Ward 02/28/2019 6:39 AM
--- NOTE | 2019-02-28 07:41 | INFECTIOUS DISEASE PROGRESS NO ---
DATE: 02/28/2019 PRESENT ILLNESS: The patient initially had scrotal cellulitis and epididymitis. The cellulitis has cleared. The patient probably still has epididymitis. The patient also had a Isaura dermatitis involving the pelvic area. This is improving. Finally, the patient may have a bibasilar pneumonia versus atelectasis. MEDICATIONS: The patient is on Ceftin 500 mg p.o. every 12 hours, and Lotrimin cream. The Ceftin, of course, is for the patient's epididymitis and pneumonia, and the Lotrimin cream is for the patient's Isaura dermatitis. PHYSICAL EXAMINATION: Vital Signs: Temperature is 97.9 degrees, pulse 99, respirations 20, blood pressure is 96/64. General: This is a morbidly obese, chronically ill-appearing and lethargic, elderly male. He is in no acute distress, and he easily can be awoken. HEENT: The patient is wearing a BiPAP mask. I did not see any white patches in his mouth. He is able to hear my spoken words and see near objects. Neck: The patient does not have any neck pain when he moves his neck or head. Lungs: There were distant breath sounds. I think the patient still has his bibasilar rales. Cardiovascular: Heart rate is irregular. Abdomen: Soft and nontender. Pelvic: The erythematous rash is clearing. The patient's scrotum still is swollen, but there is no erythema. IMAGING AND LABORATORY DATA: CBC shows a white count of 6120, hemoglobin 11, platelet count 128,000. Creatinine is 2. GFR is 34. Chest x-ray shows bibasilar infiltrates/atelectasis, as well as vascular congestion. ASSESSMENT AND PLAN: I am going to continue the patient's Ceftin for his epididymitis and for his possible pneumonia. I am also going to continue the Lotrimin cream to prevent the Isaura dermatitis from returning while the patient is on antibiotics. I have ordered a procalcitonin level, and if it shows that the infiltrates are not due to pneumonia, I will continue Ceftin until the patient has had a total of 14 days of treatment for his epididymitis. So far, the patient has received cefepime and then Ceftin, and so far he has had a total of 6 days of treatment, so he will need another 8 days. COMORBIDITIES: The patient is elderly. He also is morbidly obese. He also has chronic obstructive pulmonary disease, obstructive sleep apnea, and diabetes. cc: Cortez Helm MD
[2019-02-28] MEDS: DUONEB (A & A) INH PRN ×5 (07:59→23:20)
[2019-02-28] MEDS: COLCRYS PO SCH (09:04)
[2019-02-28] MEDS: ELIQUIS PO SCH ×2 (09:05→21:00)
[2019-02-28] MEDS: CEFTIN PO SCH ×2 (09:05→21:00)
[2019-02-28] MEDS: PLAVIX PO SCH (09:05)
[2019-02-28] MEDS: LANOXIN PO SCH (09:05)
[2019-02-28] MEDS: LOTRIMIN 1% CREAM TOP SCH ×2 (09:05→21:00)
[2019-02-28] MEDS: ALDACTONE PO SCH (09:05)
[2019-02-28] MEDS: COREG PO SCH ×3 (09:05→21:05)
[2019-02-28] MEDS: ICAR-C PO SCH ×2 (09:06→20:59)
[2019-02-28] MEDS: CENTRUM SILVER PO SCH (09:06)
[2019-02-28] MEDS: FOLIC ACID PO SCH (09:06)
--- NOTE | 2019-02-28 21:32 | PROGRESS NOTE ---
DATE: 02/28/2019 SUBJECTIVE: Patient continues without shortness of breath or chest discomfort. OBJECTIVE: Vital Signs: Blood pressure 106/55, heart rate 94, oxygen saturation 98% on nasal cannula oxygen at 2 L/minute. Neck: Jugular venous distention is present, consistent with significantly elevated central venous pressure. Chest: Clear to auscultation bilaterally. Cardiac: Irregular rate and rhythm without appreciable murmur or gallop. Abdomen: Soft. Bowel sounds are normal. Extremities: Moderate edema. LABORATORY DATA: Includes white blood cell count 6.12, hematocrit 34.4, hemoglobin 11.0, platelet count 128,000. Sodium 133, potassium 4.0, chloride 92, BUN 37, carbon dioxide 31, creatinine 2.0, glucose 162. IMPRESSIONS: 1. Acute on chronic biventricular congestive heart failure on the right side with associated anasarca and ascites as well as scrotal edema. Patient improving progressively with large volume paracentesis and diuresis. 2. Mitral valve disorder. Patient is status post previous mitral valve replacement in 2009 and transcutaneous mitral valve prosthesis placement in October 2018. 3. Aortic valve disorder with moderate aortic stenosis. 4. Ischemic cardiomyopathy with left ventricular ejection fraction 30% to 35%. 5. Atherosclerotic coronary disease. 6. Significant pulmonary hypertension, chronic. 7. Obstructive sleep apnea. 8. Morbid obesity. 9. Hypertension. 10. Hyperlipidemia. 11. Type 2 diabetes mellitus. 12. Acute on chronic kidney disease. 13. Hypothyroidism, suggested by recent labs. Replacement started. 14. History of previous spontaneous bacterial peritonitis in November of this year. RECOMMENDATION: Continue diuresis at current rate. He still manifests a great deal of volume overload despite paracentesis and diuresis thus far. He would benefit from a significant greater degree of diuresis. cc: Santo Horton MD
[2019-03-01] MEDS: LASIX IV SCH ×2 (00:21→12:49)
[2019-03-01] MEDS: MORPHINE IV PRN ×4 (01:50→18:52)
[2019-03-01 05:57] LABS: CALCIUM 8.7 mg/dL (8.8-10.2); CREATININE 1.8 mg/dL (0.7-1.2); POTASSIUM 3.9 mmol/L (3.5-5.1)
[2019-03-01] MEDS: HUMALOG SUBQ SCH ×4 (06:02→20:29)
[2019-03-01] MEDS: SYNTHROID PO SCH (06:06)
[2019-03-01] MEDS: ICAR-C PO SCH ×2 (08:49→20:28)
[2019-03-01] MEDS: COLCRYS PO SCH (08:49)
[2019-03-01] MEDS: CEFTIN PO SCH ×2 (08:49→20:29)
[2019-03-01] MEDS: PLAVIX PO SCH (08:49)
[2019-03-01] MEDS: FOLIC ACID PO SCH (08:49)
[2019-03-01] MEDS: ELIQUIS PO SCH ×2 (08:49→20:28)
[2019-03-01] MEDS: CENTRUM SILVER PO SCH (08:49)
[2019-03-01] MEDS: LANOXIN PO SCH (08:49)
[2019-03-01] MEDS: COREG PO SCH ×2 (08:49→20:28)
--- NOTE | 2019-03-01 09:33 | INFECTIOUS DISEASE PROGRESS NO ---
DATE: 03/01/2019 PRESENT ILLNESS: The patient has epididymitis and a bibasilar pneumonia versus atelectasis. The patient did have a scrotal cellulitis, but that is cleared. The patient also did have Isaura dermatitis, but that too has cleared. MEDICATIONS: The patient has been on antibiotics now for 7 days, which started with Rocephin and now is on cefepime. Also, the patient has been getting Lotrimin cream for is dermatitis, which has cleared also. PHYSICAL EXAMINATION: Vital Signs: Temperature is 98.2 degrees, pulse 71, respirations 16, blood pressure 110/72. General: This is a morbidly obese, elderly male. He is in no acute distress. Head, eyes, ears, nose, and throat: He can hear my spoken words and see near objects. He does not have any white coating of his tongue. Neck: He does not have any pain in his neck when he moves his neck or head. Lungs: Distant breath sounds. I did was unable to hear any rales today. Cardiovascular: Heart tones also were distant. Heart rate appeared to be irregular, which is confirmed on the desk monitor. Abdomen: Soft and nontender. Genitalia: The scrotum is less swollen. It is not erythematous. Extremities: The patient has a PICC in his left arm. Earlier the patient did bleed at the PICC site but that has stopped approximately 2 to 3 days ago. Integument: The patient's erythematous rash on his lower abdominal wall and pelvic area has cleared. LAB AND RADIOLOGY: Chest x-ray shows bibasilar infiltrates versus atelectasis. CBC shows a white count of 6120, hemoglobin 11, platelet count 128,000, creatinine is 1.8. GFR is 38. The patient's procalcitonin level is still pending. ASSESSMENT AND PLAN: The patient has epididymitis and my plan is to continue cefepime, Ceftin for another 7 days. The Isaura dermatitis appears to have cleared. I am going to discontinue fluconazole cream. If the patient's procalcitonin indicates that it would be unlikely for the patient have pneumonia, then I will still continue Ceftin because I have to treat the patient's epididymitis for another week. COMORBIDITIES: Morbid obesity, chronic obstructive pulmonary disease, obstructive sleep apnea, and diabetes mellitus. cc: Cortez Helm MD
[2019-03-01] MEDS: LOTRIMIN 1% CREAM TOP SCH ×2 (09:58→20:30)
[2019-03-01] MEDS: ALDACTONE PO SCH (09:58)
--- NOTE | 2019-03-01 10:09 | PROGRESS NOTE ---
DATE: 03/01/2019 INTERVAL HISTORY: No acute events overnight. Cardiology had recommended continued intravenous diuresis SUBJECTIVE: The patient is feeling okay, denies any chest pain, shortness of breath. He has not been able to sit at the edge of the bed. I encouraged him to do that while eating his meals. VITALS: Temperature of 98.3 degrees, pulse 105, respiratory rate 16, blood pressure 123/69, saturating 93% on nasal cannula. He did have 1 episode of fever spike off of 100.5 degrees Fahrenheit. Input and output negative 3 0.9 L so far. LABS: He does not have any CBC. PHYSICAL EXAMINATION: Oral cavity is moist. Air entry bilateral and equal. No wheeze or rhonchi. Inspiratory crackles bilateral inframammary region. S1, S2 normal. No murmur, rub, or gallop. Irregular. Abdomen: Obese. Ascites with dullness to percussion. Bowel sounds could not be appreciated. His scrotal edema and associated tinea cruris affecting bilateral groins are significantly improving. Lower extremity edema has also improved. He is alert oriented x3. He was able to stand up using a walker and walk a little steps inside his room couple of days ago, nonfocal. His weight is significantly low today. However, I assume that could be variation because of scales.Laboratory Data: Lab suggestive of a chronic kidney disease stage 3. He does have significantly elevated proBNP. ASSESSMENT AND PLAN: 1. Acute exacerbation of chronic systolic biventricular congestive heart failure with ejection fraction of 35%, because of inadequate low Lasix dosing, medication noncompliance and dietary indiscretion. Continue intravenous Lasix spironolactone, and carvedilol. He is status post dobutamine drip. 2. History of coronary artery disease, ischemic cardiomyopathy with percutaneous intervention in 2009, history of left ventricular thrombus, bioprosthetic mitral valve replacement in 2009 with a revision processes in October 2018. Continue clopidogrel, Eliquis, carvedilol as per Cardiology recommendation. 3. Suspected pneumonia, epididymitis and tinea cruris. Continue cefuroxime, topical clotrimazole and await procalcitonin level. Plan is to treat him for 14 days. 4. History of atrial fibrillation. Continue carvedilol, digoxin, and Eliquis. 5. Others continue albuterol ipratropium nebulization as needed for shortness of breath, levothyroxine for hypothyroidism which is new onset; omeprazole for chronic gastroesophageal reflux disease. 6. Disposition: Continue to monitor patient in [facility] for need for need for intravenous diuresis. Plan of care discussed with the patient. All of his questions were answered. cc: Kalen Neely MD
--- NOTE | 2019-03-01 19:01 | PROGRESS NOTE ---
DATE: 03/01/2019 SUBJECTIVE: Patient denies shortness of breath or chest discomfort. Lying flat in bed. OBJECTIVE: Vital Signs: Blood pressure 106/54, heart rate 78, oxygen saturation 93% on nasal cannula oxygen. Neck: Jugular venous distention remains significantly elevated, consistent with elevated central venous pressure. Chest: Clear to auscultation bilaterally. Abdomen: Soft. Bowel sounds are normal. There is no detectable fluid wave. Extremities: Demonstrate mild to moderate low pretibial edema. LABORATORY DATA: Includes a sodium 139, potassium 3.9, chloride 94, carbon dioxide 34, BUN 39, creatinine 1.8, glucose 121. IMPRESSION: 1. Acute on chronic biventricular congestive heart failure mostly right-sided with associated anasarca and ascites as well as scrotal edema. The patient continues to progressively improve following a large volume paracentesis and diuresis. I suspect he has had a component of cardiorenal syndrome and this also seems to be improving. 2. Mitral valve disorder. Patient is status post previous mitral valve replacement in 2009 and transcutaneous mitral valve replacement in October 2018. 3. Moderate aortic stenosis. 4. Cardiomyopathy, with left ventricular ejection fraction 30-35%. 5. Atherosclerotic coronary disease. 6. Significant pulmonary hypertension. 7. Obstructive sleep apnea. 8. Morbid obesity. 9. Hypertension. 10. Hyperlipidemia. 11. Type 2 diabetes mellitus. 12. Acute on chronic kidney disease. I suspect cardiorenal syndrome may be playing a role. This seems to be improving slowly. 13. Hypothyroidism by recent labs. Replacement started. 14. History of previous spontaneous bacterial peritonitis in November of this year. RECOMMENDATIONS: Patient continues to manifest residual volume excess. I suspect he may require further diuresis at current rate for another two or three days. Hopefully, by week's end he will be sufficiently improved to go home. cc: Santo Horton MD
[2019-03-02] MEDS: LASIX IV SCH ×2 (00:04→13:23)
[2019-03-02] MEDS ORDERED: CALMOSEPTINE OINTMENT TOP PRN (04:50)
[2019-03-02] MEDS: MORPHINE IV PRN ×6 (06:03→23:46)
[2019-03-02] MEDS: SYNTHROID PO SCH (06:03)
[2019-03-02] MEDS: HUMALOG SUBQ SCH ×4 (06:41→21:47)
[2019-03-02] MEDS: DUONEB (A & A) INH PRN (08:02)
--- NOTE | 2019-03-02 08:06 | INFECTIOUS DISEASE PROGRESS NO ---
DATE: 03/02/2019 PRESENT ILLNESS: The patient has epididymitis and most likely a bibasilar pneumonia rather than atelectasis. The patient's scrotal cellulitis has cleared as has his Isaura dermatitis. MEDICATIONS: The patient is on Ceftin and Lotrimin. PHYSICAL EXAMINATION: Vital Signs: Temperature is 97.7 degrees, pulse 68, respirations 18, blood pressure 96/48. General: This is a morbidly obese, elderly male. He is in no acute distress. Head, eyes, ears, nose, and throat: He can hear my spoken words and see near objects. He does not have any white patches in his mouth. Neck: No meningismus. Lungs: Breath sounds were distant. I did not hear any rales or rhonchi. Cardiovascular: Heart tones were also distant. It appeared that the rate was irregular, however. Abdomen: Soft and nontender. The lower part of the abdominal wall is no longer erythematous. Genitalia: The scrotum is less swollen and there is no erythema. Extremities: Patient has a PICC in the left arm. The PICC site is not draining anything at this time. The site is also not tender. Neurologic: The patient is awake today. He can move his extremities. There is no tremor. LAB AND X-RAY: Procalcitonin is 0.28, which translates into saying that pneumonia is likely. There is no lab back yet today. ASSESSMENT AND PLAN: Patient has epididymitis and a bibasilar pneumonia. I plan on continuing Ceftin. For tomorrow I am going to get a repeat chest x-ray and also a BMP, and I believe a CBC already is ordered. COMORBIDITIES: Morbid obesity, chronic obstructive pulmonary disease, obstructive sleep apnea, and diabetes mellitus. cc: Cortez Helm MD
[2019-03-02 08:36] LABS: BASO# 0.04 X1000 (0.0-0.2); BASO% 0.7 % (0.0-0.8); EOS# 0.24 X1000 (0.0-0.7); EOS% 4.1 % (0.0-10.0); HEMATOCRIT 34.2 % (42.0-52.0); HEMOGLOBIN 10.9 g/dL (14.0-18.0); LYMPH# 0.48 X1000 (1.2-3.4); LYMPH% 8.2 % (20.5-51.1); MCH 30.3 PG (27-31); MCHC 31.9 g/dL (33-37); MONO# 0.79 X1000 (0.11-0.59); MONO% 13.4 % (1.7-9.3); MPV 10.3 FL (7.4-10.4); NEUT# 4.33 X1000 (1.4-6.5); NEUT% 73.6 % (42.2-75.2); PLT 119 X1000 (130-400); POTASSIUM 3.8 mmol/L (3.5-5.1); WBC 5.88 X1000 (4.8-10.8)
[2019-03-02 08:37] LABS: CALCIUM 8.6 mg/dL (8.8-10.2); CREATININE 1.9 mg/dL (0.7-1.2); MAGNESIUM 1.8 mg/dL (1.5-2.7)
[2019-03-02] MEDS: ALDACTONE PO SCH (08:41)
[2019-03-02] MEDS: FOLIC ACID PO SCH (08:41)
[2019-03-02] MEDS: COLCRYS PO SCH (08:41)
[2019-03-02] MEDS: CEFTIN PO SCH ×2 (08:41→21:53)
[2019-03-02] MEDS: CENTRUM SILVER PO SCH (08:41)
[2019-03-02] MEDS: PLAVIX PO SCH (08:42)
[2019-03-02] MEDS: ICAR-C PO SCH ×2 (08:42→21:53)
[2019-03-02] MEDS: LANOXIN PO SCH (08:42)
[2019-03-02] MEDS: ELIQUIS PO SCH ×2 (08:42→21:53)
[2019-03-02] MEDS: COREG PO SCH ×2 (09:25→21:53)
[2019-03-02] MEDS: LOTRIMIN 1% CREAM TOP SCH ×2 (09:58→21:54)
--- NOTE | 2019-03-02 17:23 | PROGRESS NOTE ---
DATE: 03/02/2019 ADDENDUM REPORT SUBJECTIVE: Overnight no acute events. The patient has been putting out good urine. He refuses to take Dejesus catheter out. He has not decided about rehabilitation yet. Denies chest pain or shortness of breath. OBJECTIVE: Vitals: Temperature 97.6 degrees, pulse 67, respiration 19, blood pressure 98/63, saturating 94% on 2 L nasal cannula. General: Does not appear in acute distress. Oral cavity is moist. Generalized erythema. Air entry bilaterally equal. No wheeze or rhonchi. Bilateral mild crackles, infrascapular/inframammary region. S1, S2 normal, irregularly irregular. No murmur, rub, or gallop. Abdomen has massive ascites, however, significantly decreased since presentation. No tinea cruris. Scrotal swelling has decreased. Bilateral lower extremity edema extending up to thigh. Intake and output: Negative 2 L yesterday. LABORATORIES: Suggestive of normocytic anemia, normal platelet count. Chronic kidney disease stage 3. MICROBIOLOGY: No data. IMAGING: No data. ASSESSMENT: 1. Acute exacerbation of chronic systolic biventricular congestive heart failure with ejection fraction of 35%. 2. History of coronary artery disease, ischemic cardiomyopathy with percutaneous intervention 2009, history of left ventricular thrombus, bioprosthetic mitral valve replacement 2009 with revision prosthesis in October 2018. 3. Suspected pneumonia, right lower lobe. 4. Epididymitis, acute. 5. Tinea cruris. 6. Chronic atrial fibrillation. PLAN: 1. Continue intravenous Lasix, p.o. spironolactone and carvedilol as per Cardiology recommendation. He is status post 48 hours of dobutamine drip. 2. Continue clopidogrel, Eliquis, and carvedilol as per Cardiology recommendation for the history of mitral valve replacement. 3. Continue antibiotics as per Infectious Disease recommendation for total of 14 days for epididymitis. DISPOSITION: The patient still needs intravenous diuresis as per Cardiology. Whenever Cardiology is okay, my plan is to transition him to oral Lasix and discharge him home on home physical therapy. He has not made up his mind up about going to the rehabilitation since last 5 to 6 days. cc: Kalen Neely MD
--- NOTE | 2019-03-02 18:10 | PROGRESS NOTE ---
DATE: 03/02/2019 SUBJECTIVE: The patient continues without shortness of breath or chest discomfort on room air. OBJECTIVE: Blood pressure 98/63, heart rate 67, oxygen saturation 94%. Jugular venous distention remains significantly elevated consistent with elevated central venous pressure. Chest is clear to auscultation bilaterally. Cardiac exam reveals an irregular rate and rhythm without appreciable murmur or gallop. Abdomen is soft. Bowel sounds are normal. There is no detectable fluid wave. Extremities demonstrate mild to moderate edema that is clearly decreasing. LABORATORY DATA: Includes white blood cell count of 5.88, hematocrit 34.2, hemoglobin 10.9, platelet count 119,000. Sodium 138, potassium 3.8, chloride 94, carbon dioxide 36, BUN 40, creatinine 1.9, glucose 124. IMPRESSION: 1. [id number] biventricular congestive heart failure, predominantly right-sided with anasarca. Patient improving with vigorous diuresis and status post large-volume paracentesis. 2. Mitral valve disorder. 3. Moderate aortic stenosis. 4. Ischemic cardiomyopathy. 5. Significant pulmonary hypertension. 6. Obstructive sleep apnea. 7. Morbid obesity. 8. Hypertension. 9. Hyperlipidemia. 10. Type 2 diabetes mellitus. 11. [id number] kidney disease. RECOMMENDATIONS: Continue to diurese with IV Lasix another 24 to 36 hours. I anticipate it would be reasonable to transition him to oral diuretic thereafter, and we will probably allow him to be discharged to home on Thursday, barring any setbacks. cc: Santo Horton MD
--- NOTE | 2019-03-02 21:03 | PROGRESS NOTE ---
DATE: 03/02/2019 INTERVAL HISTORY: No acute event overnight. The patient continues to diurese well. SUBJECTIVE: He is lying down in the bed, appears not interested. Denies any chest pain, shortness of breath, palpitation. We discussed about discontinuing Dejesus catheter considering it has been there for a long time and he had a fever spike, so increasing risk of urinary tract infection. However, he insists on not removing it since he is on IV Lasix. He understands the risk associated with urinary tract infections. PHYSICAL EXAMINATION: Vitals: Temperature 97.3 degrees, pulse 100, respiratory rate 16, blood pressure 99/51, saturating 97% on 2 L nasal cannula. Morbidly obese. Not in any acute distress. Oral cavity is moist. Air entry decreased. Bilateral infrascapular region with inspiratory crackles. No wheeze or rhonchi. S1, S2 normal. Irregularly irregular. No murmur, rub, or gallop. Abdomen: Obese. Ascites with dullness to percussion. However, the ascites has significantly decreased since presentation. His scrotal erythema, edema, and tinea cruris affecting bilateral groins are also nearly improved and resolved. Bilateral lower extremity edema is still there, but significantly better than before. He has a urinary catheter. He is alert and oriented x3. He is able to lift both upper and lower extremities above ground level. LABORATORY: Labs today, suggestive of no leukocytosis, normocytic anemia, normal platelet count. He has chronic kidney disease stage III with stable BUN and creatinine. His procalcitonin level was 0.28. His proBNP yesterday was in fact higher than before. ASSESSMENT AND PLAN: 1. Acute exacerbation of chronic systolic biventricular congestive heart failure with ejection fraction of 35%, because of inadequate Lasix dosing, medication noncompliance, and dietary indiscretion. Continue intravenous Lasix, spironolactone, carvedilol. He is status post 48 hours of dobutamine drip. 2. History of coronary artery disease, ischemic cardiomyopathy with percutaneous intervention in 2009, history of left ventricular thrombus in the past, bioprosthetic mitral valve replacement in 2006, with a revision prosthesis in 10/2018. Continue his home clopidogrel, Eliquis, and carvedilol, as per Cardiology recommendation. 3. Suspected right lower lobe pneumonia, epididymitis, and tinea cruris. Continue cefuroxime, topical clotrimazole cream, as per Infectious Disease recommendation. The plan is to treat him for a total of 14 days, the first day being February 25. However, I will appreciate further recommendations. 4. History of chronic atrial fibrillation. Continue carvedilol, digoxin, and Eliquis. 5. Others: Continue albuterol ipratropium nebulization as needed for shortness of breath; levothyroxine for hypothyroidism, which is new onset; omeprazole for chronic gastroesophageal reflux disease. DISPOSITION: The patient remains inside the hospital for need for IV Lasix. I had asked him on multiple occasions over the last 5 days, if he would like to go to rehab in future. However, he has not made his mind, and he states he will try and think about it today. In this case, if whenever he is cleared by Cardiology, I would just decide to discharge him home on home physical therapy, unless he makes up his mind and conveys to us otherwise. cc: Kalen Neely MD
[2019-03-03] MEDS: LASIX IV SCH ×2 (01:05→12:44)
[2019-03-03] MEDS: MORPHINE IV PRN ×3 (03:36→19:48)
[2019-03-03 05:57] LABS: BASO# 0.03 X1000 (0.0-0.2); BASO% 0.5 % (0.0-0.8); EOS# 0.19 X1000 (0.0-0.7); EOS% 3.3 % (0.0-10.0); HEMATOCRIT 33.8 % (42.0-52.0); HEMOGLOBIN 10.7 g/dL (14.0-18.0); LYMPH# 0.46 X1000 (1.2-3.4); MCH 30.7 PG (27-31); MCHC 31.7 g/dL (33-37); MCV 96.8 FL (81-99); MONO# 0.65 X1000 (0.11-0.59); MONO% 11.2 % (1.7-9.3); NEUT# 4.45 X1000 (1.4-6.5); PLT 130 X1000 (130-400); RBC 3.49 XMIL (4.7-6.1); RDW 17.1 % (11.5-14.5); WBC 5.78 X1000 (4.8-10.8)
[2019-03-03] MEDS: SYNTHROID PO SCH (06:06)
--- NOTE | 2019-03-03 06:34 | INFECTIOUS DISEASE PROGRESS NO ---
DATE: 03/03/2019 PRESENT ILLNESS: The patient has epididymitis and possibly a bibasilar pneumonia. The patient's scrotal cellulitis and Isaura dermatitis have cleared. MEDICATIONS: The patient has been on Ceftin and Lotrimin. The patient has had a total of 10 days of antimicrobial therapy for treatment of his epididymitis and probable bibasilar pneumonia and also the Lotrimin has been treating the patient's Isaura dermatitis. PHYSICAL EXAMINATION: Vital Signs: Temperature is 98.1 degrees, pulse 65, respirations 17, blood pressure 90/59. Generally: This is a morbidly obese, elderly male. He is in no acute distress. Head/eyes/ears/nose/throat: He can hear my spoken words and see near objects. He does not have any drainage from his nose or ears. He does not have any white coating on his tongue. Neck: He does not have any neck pain when he moves his neck or head. Lungs: Diminished breath sounds, but they were clear. Cardiovascular: Heart tones were distant. Also, they are irregular. Abdomen: Soft and nontender. The lower part of the abdominal wall no longer is erythematous. Genitalia: The patient's scrotum is much less swollen and it is no longer erythematous. Extremities: The patient has a PICC in the left arm. The site is not erythematous or tender. Neurologic: The patient is awake. He can move his extremities. There is no tremor. LAB AND X-RAY: The chest x-ray is pending. There is no BMP for today. The CBC shows a white count of 5780, hemoglobin 10.7, and platelet count 130,000. The procalcitonin is 0.28, which translates into the patient likely having pneumonia. ASSESSMENT AND PLAN: The patient has had 10 days of antibiotics for epididymitis and probable sinusitis. My plan will be to continue Ceftin for 4 more days to complete a 2-week treatment course. As regarding the patient's pneumonia, most likely a 2-week treatment with antibiotics should be able to clear the patient's pneumonia, but the actual x-ray is still pending. As far as the Isaura dermatitis, I think that has cleared and I have discontinued Lotrimin cream. I am continuing Ceftin. COMORBIDITIES: The patient is elderly. The patient is also morbidly obese and he has chronic obstructive pulmonary disease, obstructive sleep apnea, and diabetes mellitus. cc: Cortez Helm MD
--- NOTE | 2019-03-03 07:05 | Diag Imaging Result Doc PS360 ---
EXAM: CHEST-1 VIEW 03/03/2019 HISTORY: pneumonia TECHNIQUE: AP portable at 0604 COMMENT: There is cardiomegaly. There is pleural thickening and/or loculated effusion on the right which was also present on 02/28/2019. There is retrocardiac opacity in the left lower lobe. There is generalized interstitial and alveolar opacity in the mid and lower lung field on the right. This has not changed appreciably since the previous study. IMPRESSION: Pulmonary edema and/or pneumonia with pleural thickening versus effusion on the right. Electronically signed by Gilbert Carrillo 03/03/2019 7:03 AM
[2019-03-03] MEDS: HUMALOG SUBQ SCH ×4 (07:07→21:48)
[2019-03-03 07:51] LABS: CALCIUM 8.8 mg/dL (8.8-10.2); CREATININE 1.9 mg/dL (0.7-1.2); POTASSIUM 3.8 mmol/L (3.5-5.1)
[2019-03-03] MEDS: DUONEB (A & A) INH PRN ×2 (07:54→11:18)
[2019-03-03] MEDS: COREG PO SCH ×2 (08:54→21:47)
[2019-03-03] MEDS: CEFTIN PO SCH ×2 (08:54→21:48)
[2019-03-03] MEDS: LANOXIN PO SCH (08:54)
[2019-03-03] MEDS: FOLIC ACID PO SCH (08:54)
[2019-03-03] MEDS: CENTRUM SILVER PO SCH (08:55)
[2019-03-03] MEDS: ALDACTONE PO SCH (08:55)
[2019-03-03] MEDS: ICAR-C PO SCH ×2 (08:55→21:47)
[2019-03-03] MEDS: ELIQUIS PO SCH ×2 (08:55→21:47)
[2019-03-03] MEDS: PLAVIX PO SCH (08:55)
[2019-03-03] MEDS: COLCRYS PO SCH (08:55)
[2019-03-03] MEDS: TYLENOL PO PRN ×2 (08:55→22:52)
--- NOTE | 2019-03-03 08:55 | PROGRESS NOTE ---
DATE: 03/03/2019 SUBJECTIVE: This patient seems to be doing a little bit better. He is still having some fluid overload. He has decided to go to a rehab center, and we will put the order for the social and political studies professor to start working on that. OBJECTIVE: Vital Signs: Temperature 97.6 degrees, pulse 66, respiratory rate 16, blood pressure 100/66, oxygen saturation 93% on 4 liters of nasal cannula. HEENT: Head normocephalic, no trauma. PERRLA. Neck: Supple. No JVD. No masses. Central trachea. Chest: Some crackles at the bases. No wheezing. Abdomen/Genitourinary: Soft, abdominal wall edema, nontender, nondistended. No hepatosplenomegaly. Inguinal area, he has scrotal swelling, but it looks better as per the patient. Extremities: Bilateral lower extremity edema up to the thigh of 1 to 2+. LABORATORY DATA: WBC 5.7, hemoglobin 10.7, hematocrit 33.8, platelets 130,000. Sodium 140, potassium 3.8, chloride 94, bicarbonate 35, BUN 44, creatinine 1.9, glucose 97, calcium 8.8. ASSESSMENT AND PLAN: 1. Acute on chronic biventricular congestive heart failure, predominantly right-sided with anasarca. The patient is improving with diuresis. He also had a paracentesis done, and 6.3 liters has been removed from that paracentesis. So far we have a negative balance of 28.5 liters. I will continue with 1 more day of Lasix intravenously, and probably I will transition him to oral treatment tomorrow. 2. History of coronary artery disease, ischemic cardiomyopathy with percutaneous intervention in 2009, aware. Continue with same management. No chest pain at this moment. 3. Left ventricular thrombus, bioprosthetic mitral valve replacement in 2009 with revision of prosthesis in October 2018, continue with same management. He is on anticoagulation. 4. Suspected pneumonia, right lower lobe. Continue with same management. Infectious Disease Department on board. 5. Epididymitis, acute. Continue antibiotics. 6. Tenia cruris. Continue with antifungal medication. 7. Chronic atrial fibrillation, rate controlled. He is on anticoagulation. Continue with same management. Cardiology on board. 8. Generalized weakness and physical deconditioning. The patient has requested to go to a rehabilitation center. cc: Dawit Kapoor MD
[2019-03-03] MEDS: PERICOLACE PO PRN ×2 (09:10→18:20)
[2019-03-04] MEDS: MORPHINE IV PRN ×2 (01:05→19:59)
[2019-03-04] MEDS: LASIX IV SCH (01:10)
[2019-03-04] MEDS: ZOFRAN IV PRN (03:47)
[2019-03-04 06:09] LABS: CALCIUM 8.8 mg/dL (8.8-10.2); CREATININE 1.9 mg/dL (0.7-1.2); POTASSIUM 4.1 mmol/L (3.5-5.1)
[2019-03-04] MEDS: SYNTHROID PO SCH (06:11)
--- NOTE | 2019-03-04 06:53 | INFECTIOUS DISEASE PROGRESS NO ---
DATE: 03/04/2019 PRESENT ILLNESS: The patient has an epididymitis and a bibasilar pneumonia. The patient also has Isaura dermatitis involving the perineum and abdominal wall. MEDICATIONS: The patient is receiving Ceftin p.o. and Lotrimin topically. The patient has had a total of 11 days treatment for his epididymitis and pneumonia and the Lotrimin has been treating the patient's Isaura dermatitis. PHYSICAL EXAMINATION: Vital Signs: Temperature is 98 degrees, pulse 60, respirations 16, blood pressure 110/55. General: This is a morbidly obese, elderly male. He is in no acute distress. Head, eyes, ears, nose, and throat: He can hear my spoken words and see near objects. He does not have any white coating of the tongue. Neck: No meningismus. Lungs: Distant breath sounds. I did not hear rales. Cardiovascular: Distant heart tones. They are irregular. Abdomen: Soft and nontender. The perineum shows that the red rash is beginning to come back. The patient's scrotum is less edematous than it was previously and the marked erythema has cleared also. The perineum shows red patches. Extremities: Patient's PICC site is not erythematous or draining. Legs: Bilateral edema with brown discoloration of the legs distally. Neurologic: The patient is arousable. He can move his extremities. There is no tremor. LAB AND X-RAY: Creatinine is 1.9. GFR is 36. Procalcitonin is 0.28, which translates into the patient having pneumonia. Chest x-ray shows right pulmonary edema/pneumonia with pleural thickening versus effusion. ASSESSMENT AND PLAN: The patient has possible pneumonia. I plan to continue Ceftin. The patient's erythematous rash might be due to a recurrence of the Isaura infection he had before. I have gone ahead and started the patient on Lotrimin cream. I plan to continue Ceftin to treat the patient's epididymitis and possible right lower lobe pneumonia. He had a total now of 11 days of treatment with antibiotics. COMORBIDITIES: The patient is elderly. He is morbidly obese and he has chronic obstructive pulmonary disease, obstructive sleep apnea, and diabetes mellitus. cc: MD CHASE Tom
[2019-03-04] MEDS: HUMALOG SUBQ SCH ×4 (07:05→20:48)
[2019-03-04] MEDS: COLCRYS PO SCH (08:46)
[2019-03-04] MEDS: PLAVIX PO SCH (08:47)
[2019-03-04] MEDS: CENTRUM SILVER PO SCH (08:47)
[2019-03-04] MEDS: COREG PO SCH ×2 (08:48→20:48)
[2019-03-04] MEDS: ICAR-C PO SCH ×2 (08:48→20:48)
[2019-03-04] MEDS: ELIQUIS PO SCH ×2 (08:49→20:48)
[2019-03-04] MEDS: LANOXIN PO SCH (08:49)
[2019-03-04] MEDS: FOLIC ACID PO SCH (08:50)
[2019-03-04] MEDS: CEFTIN PO SCH ×2 (09:01→20:48)
[2019-03-04] MEDS: LASIX PO SCH (09:09)
[2019-03-04] MEDS: ALDACTONE PO SCH (09:09)
--- NOTE | 2019-03-04 09:12 | PROGRESS NOTE ---
DATE: 03/04/2019 SUBJECTIVE: The patient seems to be stable. We have been diuresing this patient. Kidney function at baseline. I will stop the IV Lasix, and I will put her on p.o. Lasix. So far we removed around 30.2 L for the past few days and 1.7 L negative in the past 24 hours. OBJECTIVE: Vital Signs: Temperature 97.6 degrees, pulse 66, respiratory rate 16, blood pressure 100/66, oxygen saturation 93 on 2 L nasal cannula. HEENT: Head normocephalic, no trauma. PERRLA. Neck: Supple. No JVD. No masses. Central trachea. Chest: Some rales and crepitus at the bases. No wheezing. Abdomen: Soft, nontender, nondistended. No hepatosplenomegaly. In the inguinal area, he has some scrotal swelling, but it looks better. Extremities: Bilateral lower extremity edema up to the thigh around 1+ to 2+. LABORATORY: Sodium 136, potassium 4.1, chloride 90, bicarbonate 33. BUN 45, creatinine 1.9, glucose 129, calcium 8.8. ASSESSMENT AND PLAN: 1. Acute on chronic biventricular congestive heart failure predominantly right-sided with anasarca. This patient is improving with diuresis. He also had a paracentesis done and 6.3 liters of fluid was removed at that time. So far, we have a negative balance of more than 30 liters. I will stop the intravenous Lasix and I will put him on oral Lasix. 2. History of coronary artery disease, ischemic cardiomyopathy with percutaneous intervention in 2009. We will continue with same management. No chest pain at this moment. 3. Left ventricular thrombus, bioprosthetic valve replacement in 2009 with revision of prosthesis in October 2018. We will continue with the same management. He is on anticoagulation. 4. Suspected pneumonia, right lower lobe. Continue with same management. Infectious Disease Department on board. Continue with antibiotics. 5. Epididymitis, acute. Continue with antibiotics. 6. Isaura dermatitis. Continue with Lotrimin cream until today. It looks like this has cleared. 7. Chronic atrial fibrillation, rate controlled. He is on anticoagulation. Will continue with same management. Cardiology on board. 8. Generalized weakness and physical deconditioning. This patient has requested to go to a rehabilitation center. cc: Dawit Kapoor MD
[2019-03-04] MEDS: MYCELEX 1% CREAM TOP SCH ×2 (09:28→20:48)
[2019-03-04] MEDS: PERICOLACE PO PRN (09:34)
[2019-03-05] MEDS: SYNTHROID PO SCH (06:27)
[2019-03-05] MEDS: HUMALOG SUBQ SCH ×4 (06:28→21:48)
--- NOTE | 2019-03-05 07:01 | Diag Imaging Result Doc PS360 ---
EXAM: CHEST-PORTABLE 03/05/2019 HISTORY: dyspnea TECHNIQUE: AP portable at 0613 COMMENT: There is cardiomegaly. The lungs are not as well-expanded as on 03/03/2019. Despite this there has been some improvement in the opacification of the lower lobes bilaterally and the left hemidiaphragm is now partially visible. There may be pleural fluid on the right. IMPRESSION: Improved atelectasis and/or pneumonia. Electronically signed by Gilbert Carrillo 03/05/2019 6:59 AM
[2019-03-05 07:40] LABS: BASO# 0.02 X1000 (0.0-0.2); BASO% 0.3 % (0.0-0.8); EOS# 0.24 X1000 (0.0-0.7); EOS% 3.6 % (0.0-10.0); HEMOGLOBIN 10.9 g/dL (14.0-18.0); LYMPH# 0.63 X1000 (1.2-3.4); LYMPH% 9.5 % (20.5-51.1); MCH 30.3 PG (27-31); MCHC 32.1 g/dL (33-37); MCV 94.4 FL (81-99); MONO# 0.53 X1000 (0.11-0.59); MPV 10.6 FL (7.4-10.4); NEUT% 78.6 % (42.2-75.2); PLT 159 X1000 (130-400); WBC 6.62 X1000 (4.8-10.8)
[2019-03-05 08:10] LABS: CALCIUM 8.8 mg/dL (8.8-10.2); CREATININE 2.2 mg/dL (0.7-1.2); POTASSIUM 4.1 mmol/L (3.5-5.1)
[2019-03-05] MEDS: LANOXIN PO SCH (10:09)
[2019-03-05] MEDS: COLCRYS PO SCH (10:10)
[2019-03-05] MEDS: PLAVIX PO SCH (10:10)
[2019-03-05] MEDS: CEFTIN PO SCH ×2 (10:10→21:47)
[2019-03-05] MEDS: ELIQUIS PO SCH ×2 (10:10→21:47)
[2019-03-05] MEDS: FOLIC ACID PO SCH (10:10)
[2019-03-05] MEDS: LASIX PO SCH (10:10)
[2019-03-05] MEDS: COREG PO SCH ×2 (10:11→21:47)
[2019-03-05] MEDS: ICAR-C PO SCH ×2 (10:11→21:47)
[2019-03-05] MEDS: ALDACTONE PO SCH (10:11)
[2019-03-05] MEDS: CENTRUM SILVER PO SCH (10:11)
[2019-03-05] MEDS: MYCELEX 1% CREAM TOP SCH ×2 (10:14→21:48)
--- NOTE | 2019-03-05 13:26 | PROGRESS NOTE ---
DATE: 03/05/2019 SUBJECTIVE: Patient seems to be feeling better. X-ray showed improved atelectasis and/or pneumonia, some pleural effusion on the right side, he is tolerating p.o. We will continue with the same management for now. OBJECTIVE: Vital Signs: Temperature 97.5 degrees, pulse 64, respiratory rate 19, blood pressure 99/41, oxygen saturation 91% on 2 L of nasal cannula. HEENT: Head normocephalic, no trauma, PERRLA. Neck: Supple. No JVD. No masses. Central trachea. Chest: Some rales and crepitus at the bases. No wheezing. Abdomen: Soft, nontender, nondistended. No hepatosplenomegaly. Some scrotal swelling but looks better. Extremity: Bilateral lower extremity edema 1 to 2+. LABORATORY: WBC 6.6, hemoglobin 10.9, hematocrit 34, platelets 159,000, sodium 138, potassium 4.1, chloride 94, bicarbonate 35, BUN 48, creatinine 2.2, glucose 114, calcium 8.8. ASSESSMENT AND PLAN: 1. 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 He is getting p.o. Lasix. I will continue to monitor this patient closely. 2. History of coronary artery disease, ischemic cardiomyopathy with percutaneous intervention in 2009. We will continue with same management. He is not complaining of chest pain. 3. Left ventricular thrombus, bioprosthetic valve replacement in 2009 with a revision of prosthesis in October 2017, will continue with same management. He is on blood thinners. 4. Suspected pneumonia, right lower lobe, this is better, continue with the same management. X- ray looks better as well. 5. Epididymitis, acute. Continue with antibiotics. 6. Candidal dermatitis. He was on Lotrimin cream and it was stopped yesterday. Likely is cleared. 7. Chronic atrial fibrillation, rate controlled. Continue with anticoagulation. 8. Generalized weakness and physical deconditioning. This patient has requested to go to a rehab center. cc: Dawit Kapoor MD
[2019-03-05] MEDS: MORPHINE IV PRN (18:47)
[2019-03-06] MEDS: MORPHINE IV PRN ×2 (00:49→20:56)
[2019-03-06] MEDS: HUMALOG SUBQ SCH ×4 (06:04→20:30)
[2019-03-06] MEDS: SYNTHROID PO SCH (06:18)
--- NOTE | 2019-03-06 06:59 | Diag Imaging Result Doc PS360 ---
EXAM: CHEST-1 VIEW 03/06/2019 HISTORY: pneumonia TECHNIQUE: AP portable at 0624 COMMENT: There is cardiomegaly. There is increased pulmonary vascularity. There is pleural thickening or loculated fluid on the right. The appearance the chest has not changed significantly since the previous study of 03/05/2019. There continues to be platelike opacity at the right base and ill-defined opacity at the left base. IMPRESSION: Stable since 03/05/2019. Electronically signed by Gilbert Carrillo 03/06/2019 6:56 AM
[2019-03-06 07:05] LABS: BASO# 0.04 X1000 (0.0-0.2); BASO% 0.6 % (0.0-0.8); EOS# 0.17 X1000 (0.0-0.7); EOS% 2.7 % (0.0-10.0); HEMATOCRIT 33.1 % (42.0-52.0); HEMOGLOBIN 10.5 g/dL (14.0-18.0); LYMPH# 0.54 X1000 (1.2-3.4); LYMPH% 8.7 % (20.5-51.1); MCH 30.9 PG (27-31); MCHC 31.7 g/dL (33-37); MCV 97.4 FL (81-99); MONO# 0.64 X1000 (0.11-0.59); MONO% 10.3 % (1.7-9.3); MPV 10.5 FL (7.4-10.4); NEUT# 4.84 X1000 (1.4-6.5); NEUT% 77.7 % (42.2-75.2); PLT 161 X1000 (130-400); RDW 17.3 % (11.5-14.5); WBC 6.23 X1000 (4.8-10.8)
[2019-03-06 07:29] LABS: CALCIUM 8.7 mg/dL (8.8-10.2); CREATININE 2.2 mg/dL (0.7-1.2); POTASSIUM 4.3 mmol/L (3.5-5.1)
[2019-03-06] MEDS: PLAVIX PO SCH (08:40)
[2019-03-06] MEDS: ALDACTONE PO SCH (08:40)
[2019-03-06] MEDS: ICAR-C PO SCH ×2 (08:40→20:50)
[2019-03-06] MEDS: COREG PO SCH ×2 (08:40→20:50)
[2019-03-06] MEDS: FOLIC ACID PO SCH (08:41)
[2019-03-06] MEDS: CEFTIN PO SCH ×2 (08:41→20:50)
[2019-03-06] MEDS: ELIQUIS PO SCH ×2 (08:41→20:50)
[2019-03-06] MEDS: CENTRUM SILVER PO SCH (08:41)
[2019-03-06] MEDS: LANOXIN PO SCH (08:41)
[2019-03-06] MEDS: COLCRYS PO SCH (08:41)
[2019-03-06] MEDS: LASIX PO SCH (08:41)
[2019-03-06] MEDS: MYCELEX 1% CREAM TOP SCH ×2 (08:45→20:50)
--- NOTE | 2019-03-06 11:35 | PROGRESS NOTE ---
DATE: 03/06/2019 SUBJECTIVE: Patient is feeling better. No acute events overnight. He is completely awake and oriented x3. He is tolerating p.o. Continue with same management. I will add an extra dose of Lasix today. OBJECTIVE: Vital Signs: Temperature 98.8 degrees, pulse 80, respiratory rate 16, blood pressure 92/49, oxygen saturation 96 on nasal cannula. HEENT: Head normocephalic, no trauma. PERRLA. Neck: Supple. No JVD. No masses. Central trachea. Chest: Some rales and crepitus at the bases. No wheezing. Abdomen: Soft, nontender, nondistended. No hepatosplenomegaly. Genitourinary: Some scrotal swelling but looks better. Extremities: Bilateral lower extremity 1 to 2+. LABORATORY: WBC 6.2, hemoglobin 10.5, hematocrit 33.1, platelets 165,000. Sodium 136, potassium 4.3, chloride 92, bicarbonate 35, BUN 45, creatinine 2.2, glucose 114, calcium 8.7. ASSESSMENT AND PLAN: 1. Acute on chronic biventricular congestive heart failure, mostly on the right side with anasarca. This patient is improving with diuresis. We have a negative balance of more than 30 L. He is getting p.o. Lasix, and I will give him an extra dose of IV Lasix today. 2. History of coronary artery disease, ischemic cardiomyopathy with percutaneous intervention in 2009. We will continue with same management. He is not complaining of chest pain. 3. Left ventricular thrombus, bioprosthetic valve replacement in 2009 with a revision of prosthesis in October 2017. We will continue with same management. He is on blood thinners. 4. Suspected pneumonia, right lower lobe. This is better. Continue with same management. 5. Epididymitis, acute. Continue with antibiotics. 6. Candidal dermatitis, improved. 7. Chronic atrial fibrillation, rate controlled. Continue with anticoagulation. 8. Generalized weakness and physical deconditioning. This patient has requested to go to a rehabilitation center. cc: Dawit Kapoor MD
[2019-03-06] MEDS ORDERED: LASIX IV ONE (20:00)
[2019-03-07] MEDS: HUMALOG SUBQ SCH ×3 (06:05→21:35)
[2019-03-07] MEDS: SYNTHROID PO SCH (06:11)
[2019-03-07] MEDS: DUONEB (A & A) INH PRN ×4 (07:23→23:52)
[2019-03-07 07:41] LABS: CALCIUM 8.6 mg/dL (8.8-10.2); POTASSIUM 4.4 mmol/L (3.5-5.1)
[2019-03-07] MEDS: CEFTIN PO SCH ×2 (08:26→22:09)
[2019-03-07] MEDS: FOLIC ACID PO SCH (08:26)
[2019-03-07] MEDS: ICAR-C PO SCH ×2 (08:26→22:10)
[2019-03-07] MEDS: ALDACTONE PO SCH (08:26)
[2019-03-07] MEDS: ELIQUIS PO SCH ×2 (08:26→22:09)
[2019-03-07] MEDS: LASIX PO SCH (08:26)
[2019-03-07] MEDS: COLCRYS PO SCH (08:26)
[2019-03-07] MEDS: LANOXIN PO SCH (08:26)
[2019-03-07] MEDS: COREG PO SCH ×2 (08:26→22:10)
[2019-03-07] MEDS: PLAVIX PO SCH (08:27)
[2019-03-07] MEDS: CENTRUM SILVER PO SCH (08:27)
[2019-03-07] MEDS: MYCELEX 1% CREAM TOP SCH ×2 (08:27→21:35)
[2019-03-07] MEDS: MORPHINE IV PRN (10:25)
[2019-03-07] MEDS: TYLENOL PO PRN (10:29)
--- NOTE | 2019-03-07 13:27 | PROGRESS NOTE ---
DATE: 03/07/2019 SUBJECTIVE: The patient is feeling better. No acute events overnight. He is completely awake and oriented x3. He is tolerating p.o. I will remove the Dejesus catheter today. He is feeling better, pending rehab center placement. OBJECTIVE: Vital Signs: Temperature 98.4 degrees, pulse 56, respiratory rate 15, blood pressure 97/45, oxygen saturation is 100% on 2 L of nasal cannula. HEENT: Head normocephalic. No trauma. PERRLA. Neck: Supple. No JVD. No masses. Central trachea. Chest: Some scattered rales, mostly at the bases. Decreased breath sounds at the bases as well. No wheezing. Abdomen: Soft, nontender, nondistended. No hepatosplenomegaly. Extremities: Bilateral lower extremity edema 1 to 2+. Neurological Examination: Alert and oriented x3. No focal deficits. Laboratory: Sodium 137, potassium 4.4, chloride 93, bicarbonate 35, BUN 42, creatinine 2, glucose 92, calcium 8.6. ASSESSMENT AND PLAN: 1. Acute on chronic biventricular congestive heart failure, especially right-sided, with anasarca. This patient is improving with diuresis. So far, we have a negative balance of at least 34 L. We will continue to monitor. We will continue with the same management. 2. History of coronary artery disease, ischemic cardiomyopathy, with percutaneous intervention in 2009. We will continue with the same management. He is not complaining of chest pain at this moment. 3. Left ventricular thrombus, bioprosthetic valve replacement in 2009 with revision of prosthesis in October 2017. Continue with the same management. He is getting blood thinners. 4. Suspected pneumonia, right lower lobe pneumonia. This is better. 5. Epididymitis, acute. Continue antibiotics. 6. Candidal dermatitis, improved. 7. Chronic atrial fibrillation, rate controlled. Continue with anticoagulation with Eliquis 5 mg by mouth twice a day. 8. Generalized weakness and physical deconditioning. This patient has requested to go to a rehab center. cc: Dawit Kapoor MD
--- NOTE | 2019-03-07 18:35 | INFECTIOUS DISEASE PROGRESS NO ---
DATE: 03/07/2019 PRESENT ILLNESS: Mr. Shelby is being treated for epididymitis, bibasilar pneumonia and candidal dermatitis to the perineum and abdominal wall. MEDICATIONS: He is receiving Ceftin 500 mg p.o. every 12 hours. Today is day 14 of his treatment. He also has clotrimazole 1% cream to the erythematous areas twice a day. PHYSICAL EXAMINATION: Vital Signs: Temperature is 98.2 degrees, pulse rate 59, respiratory rate 17, blood pressure 106/50, O2 saturation 99% on room air. General: This is a chronically ill- appearing, elderly gentleman. He is lying in the bed, currently in no acute distress. HEENT: Atraumatic, normocephalic. Oral mucous membranes are pink and moist. Conjunctivae are pink. Neck: Supple. Trachea is midline. Cardiovascular: Heart rate is regular. There is a systolic murmur noted. Respiratory: Lung sounds are clear in the upper lobes, diminished in the bases. No work of breathing is noted. Abdomen: Soft, obese and nontender. Bowel sounds are active. Neurologic: He is awake, alert, appropriate, able to move all extremities in the bed independently with some generalized weakness noted. Integumentary: At this point, there is no erythema or edema noted to the scrotum and the erythema to the abdomen and perineum has significantly diminished. The PICC line in place to his left upper arm is without edema, erythema, or drainage to the site. LABORATORY AND X-RAY: No CBC available today; however, yesterday his white count was 6.23, hemoglobin 10.5, platelet count 161,000. Today his creatinine is 2, GFR 33. No imaging reports today; however, yesterday his chest x-ray showed pleural thickening or loculated fluid on the right with platelike opacity at the right left bases. ASSESSMENT AND PLAN: Mr. Shelby is being treated for epididymitis as well as a bibasilar pneumonia. I have talked to him about coughing and deep breathing, pushing air into the lungs to push fluid out as well as turning side to side to keep lungs aerated. Today is day 14 of treatment for his epididymitis and pneumonia. He no longer has any scrotal pain or edema. It is not clear whether of not there is a lingering pneumonia, so we will get a CT of the thorax without contrast, as well as a procalcitonin level in the morning. We will also continue the clotrimazole cream, since the rash is diminishing. These plans have been discussed with and recommended by Dr. Helm. COMORBIDITIES: For Mr. Shelby include that he is elderly and obese with COPD, obstructive sleep apnea and diabetes mellitus. Dictated by TATYANA Medina for Cortez Helm MD cc: Cortez Helm MD [facility]
[2019-03-07] MEDS: ZOFRAN IV PRN (21:29)
--- NOTE | 2019-03-07 22:00 | Diag Imaging Result Doc PS360 ---
EXAM: CT THORAX W/O CONTRAST INDICATION: pneumonia TECHNIQUE: This exam was performed using automated exposure control, adjustment of mA or kV according to patient size, and/or use of iterative reconstruction technique. COMPARISON: 09/22/2018 FINDINGS: There is stable pulmonary fibrosis at both lung bases, worse on the right. No discrete airspace consolidation is appreciated. There is stable chronic pleural thickening or loculated trace pleural fluid at the right lung base. There is stable cardiomegaly there is stable nonspecific mediastinal lymphadenopathy. Limited views of the upper abdomen reveals moderate ascites tracking around the liver. IMPRESSION: 1.Stable fibrotic changes at the lung bases. 2.Moderate ascites. 3.Stable cardiomegaly and nonspecific mediastinal lymphadenopathy. 4.Otherwise, no definite acute chest pathology. Electronically signed by Wagner Santos 03/07/2019 9:57 PM
[2019-03-08] MEDS: DUONEB (A & A) INH PRN ×2 (03:05→07:35)
[2019-03-08] MEDS: SYNTHROID PO SCH (06:23)
[2019-03-08] MEDS: MORPHINE IV PRN (06:23)
[2019-03-08] MEDS: HUMALOG SUBQ SCH ×2 (06:54→11:58)
[2019-03-08] MEDS: COREG PO SCH (09:23)
[2019-03-08] MEDS: LASIX PO SCH (09:32)
[2019-03-08] MEDS: COLCRYS PO SCH (09:33)
[2019-03-08] MEDS: CENTRUM SILVER PO SCH (09:33)
[2019-03-08] MEDS: PLAVIX PO SCH (09:33)
[2019-03-08] MEDS: LANOXIN PO SCH (09:33)
[2019-03-08] MEDS: ALDACTONE PO SCH (09:33)
[2019-03-08] MEDS: CEFTIN PO SCH (09:33)
[2019-03-08] MEDS: ICAR-C PO SCH (09:33)
[2019-03-08] MEDS: FOLIC ACID PO SCH (09:33)
[2019-03-08] MEDS: ELIQUIS PO SCH (09:34)
[2019-03-08] MEDS: MYCELEX 1% CREAM TOP SCH (09:39)
[2019-03-08 09:47] LABS: BASO# 0.07 X1000 (0.0-0.2); EOS# 0.29 X1000 (0.0-0.7); EOS% 3.9 % (0.0-10.0); HEMATOCRIT 35.9 % (42.0-52.0); HEMOGLOBIN 11.5 g/dL (14.0-18.0); LYMPH# 0.57 X1000 (1.2-3.4); LYMPH% 7.8 % (20.5-51.1); MCH 30.2 PG (27-31); MCV 94.2 FL (81-99); MONO% 6.8 % (1.7-9.3); MPV 10.2 FL (7.4-10.4); NEUT# 5.92 X1000 (1.4-6.5); NEUT% 80.5 % (42.2-75.2); PLT 179 X1000 (130-400); RBC 3.81 XMIL (4.7-6.1); RDW 17.1 % (11.5-14.5); WBC 7.35 X1000 (4.8-10.8)
[2019-03-08 10:24] LABS: CALCIUM 8.9 mg/dL (8.8-10.2); CREATININE 2.1 mg/dL (0.7-1.2); POTASSIUM 4.7 mmol/L (3.5-5.1)
[2019-03-08 14:36] VITALS: BP 103/54
--- NOTE | 2019-03-08 15:39 | INFECTIOUS DISEASE PROGRESS NO ---
DATE: 03/08/2019 PRESENT ILLNESS: The patient has been treated for epididymitis, bibasilar pneumonia and Isaura dermatitis to the perineum and abdominal wall. MEDICATIONS: This is the 15th day of treatment with Ceftin 500 mg p.o. every 12 hours and clotrimazole for the patient's Isaura dermatitis. PHYSICAL EXAMINATION: Vital Signs: Temperature is 99 degrees, pulse 82, respirations 19, blood pressure 94/55. General: This is a chronically ill-appearing, elderly male. He is lying in bed but he said he has been up walking with the use of his walker. Head/eyes/ears/nose/throat: He can hear my spoken words and see near objects. He does not have any white patches in his mouth. Neck: No meningismus. Lungs: Clear to auscultation. Cardiovascular: Heart rate was irregular at times and other times it was regular. Lungs: Clear to auscultation. Abdomen: Soft and nontender. Neurologic: The patient is alert. He can move his extremities. There is no tremor. Extremities: The PICC in the patient's left arm is in place. There is no erythema or swelling. Pelvic: The patient's scrotum and the lower abdominal wall are less swollen and there is no erythema. LAB AND X-RAY: CT scan of the chest shows bibasilar fibrosis and ascites. Creatinine is 2.1. GFR is 32. CBC shows a white count of 7350, hemoglobin is 11.5 and platelet count is 179,000. ASSESSMENT AND PLAN: The patient has completed a full course of treatment for his epididymitis and his pneumonia has cleared. Also, the Isaura dermatitis has cleared up. From Infectious Disease point of view the patient can go on home. He will not need any further antibiotics and he will not need any antifungal cream. Also, the patient's peripherally inserted central catheter in the left arm can come out. I am signing off the patient's case. I am available to see him on a p.r.n. basis. COMORBIDITIES: He is elderly and obese. He also has COPD, obstructive sleep apnea and diabetes mellitus. cc: Cortez Helm MD
--- NOTE | 2019-03-09 10:28 | DISCHARGE SUMMARY ---
ADMISSION DATE: 02/21/2019 DISCHARGE DATE: 03/08/2019 DISCHARGE DIAGNOSES: 1. Acute on chronic biventricular congestive heart failure, especially right-sided, with anasarca. 2. History of coronary artery disease. 3. Ischemic cardiomyopathy. 4. Left ventricular thrombus. 5. Bioprosthetic valve replacement in 2009 with revision of prosthesis on 10/2018. 6. Right lower lobe pneumonia. 7. Epididymitis. 8. Isaura dermatitis. 9. Chronic atrial fibrillation. 10. Generalized weakness and physical deconditioning. CONSULTANTS: Cardiology Department, Dr. Santo Horton; Urology Department, Dr. Conner Ellis; Infectious Disease Department, Dr. Cortez Helm. PROCEDURES PERFORMED: 1. Chest x-ray dated 02/21/2019, impression: Loculated pleural effusion on the right, with right lower lobe atelectasis versus pneumonia, cardiomegaly. 2. Abdomen ultrasound dated 02/22/2019, impression: Ascites, hepatosplenomegaly. 3. Scrotum ultrasound dated 02/22/2019, impression: Bilateral [*] with left-sided epididymitis with possible right-sided epididymitis. 4. Chest x-ray dated 02/22/2019, impression: Nonspecific finding. 5. Paracentesis on 02/23/2019, impression: Successful and uncomplicated ultrasound-guided paracentesis, 6.3 L of fluid has been aspirated. 6. Chest x-ray dated 02/25/2019, impression: Atelectasis versus pneumonia and small bilateral pleural effusion. 7. Chest x-ray dated 02/28/2019, impression: No interval improvement. 8. Chest x-ray dated 03/03/2019, impression: Pulmonary edema and/or pneumonia with pleural thickening versus effusion on the right. 9. Chest x-ray dated 03/05/2019, impression: Improved atelectasis and/or pneumonia. 10. Chest x-ray dated 03/06/2019, impression: Stable chest since 03/05/2019. 11. CT scan dated 03/08/2019, impression: Stable fibrotic changes at the lung bases, moderate ascites, stable cardiomegaly, and nonspecific mediastinal lymphadenopathy. HOSPITAL COURSE: A 68-year-old male with a past medical history of ischemic cardiomyopathy with an ejection fraction around 30% to 35% with chronic biventricular CHF, pulmonary hypertension, obesity, CKD, who came in to the emergency department and was admitted on 02/21/2019 after gaining 50 pounds in 1 week. He has extensive edema in his abdomen and scrotal area, which was very painful. Initial workup in the emergency department showed an x-ray with loculated pleural effusion on the right, as well as cardiomegaly. Laboratory data showed chronic kidney disease, which is stable. ProBNP elevated at 13,464. He received some Lasix in the emergency room. He was admitted to [facility]. Cardiology department was consulted, and he received diuretics, also diuretics and treatment for his CHF. A total of 36.9 L has been removed during this course of his hospitalization, including a paracentesis with more than 6 L removed from his abdomen. Urology Department was consulted because of his significant scrotal edema, which limits placement of catheter by nursing staff. Infectious Disease Department evaluated this patient, and they placed the patient on antibiotic for right lower lobe pneumonia and epididymitis. The patient started feeling good on a daily basis. Like I mentioned before, he got a paracentesis done that helped a lot for his breathing. At some point, because of generalized weakness, he decided to go to a rehab center, but he did not qualify, so he will go home today. We did a CT scan that did not show any pneumonia at this moment, but stable fibrotic changes at the lung bases, moderate ascites, stable cardiomyopathy, and nonspecific mediastinal lymphadenopathy. This patient has a stable medical condition, tolerating p.o., ambulating with assistance. No shortness of breath. He is feeling good. He is going home with home health. PHYSICAL EXAMINATION: Vital Signs: Temperature 98.4 degrees, pulse 60, respiratory rate 19, blood pressure 103/54, oxygen saturation 91% on room air. HEENT: Head normocephalic. No trauma. PERRLA. Neck: Supple. No JVD. No masses. Central trachea. Chest: Scattered rales at the bases. Decreased breath sounds at the bases as well. No wheezing. Abdomen: Soft, nontender, nondistended. No hepatosplenomegaly. Extremities: Bilateral lower extremity edema, 1+ to 2+. Neurological: The patient is alert and oriented x3. No focal deficits. LABORATORY DATA: WBC 7.3, hemoglobin 11.5, hematocrit 35.9, platelets 179,000. Sodium 134, potassium 4.7, chloride 93, bicarbonate 31, BUN 41, creatinine 2.1, glucose 137, calcium 8.9. DISCHARGE MEDICATIONS: Acetaminophen 650 mg p.o. every 6 hours as needed for pain and/or fever, Eliquis 5 mg p.o. b.i.d., Tums 500 mg p.o. b.i.d. as needed, carvedilol 6.25 mg p.o. every 12 hours, Plavix 75 mg p.o. every a.m., clotrimazole 1% cream twice a day, colchicine 0.6 mg p.o. every a.m., digoxin 125 mcg p.o. daily, folic acid 1 mg p.o. daily, furosemide 80 mg p.o. daily, Icar-C 1 mg p.o. b.i.d., levothyroxine 50 mcg p.o. daily, Centrum Silver 1 tablet p.o. daily, omeprazole 20 mg p.o. daily, Jessica-Colace 1 tablet p.o. b.i.d. as needed, and spironolactone 100 mg p.o. daily. FOLLOWUP: Follow up with Dr. Christiano Nguyen, who is his primary care provided provider on 03/10/2019 at 2 p.m[address] Follow up with Dr. Bhupinder Fleming on 04/07/2019 at 1:45 p.m. DISPOSITION: Again, this patient will be discharged home with home health. TIME SPENT: Time discharging this patient was 35 minutes. cc: Dawit Kapoor MD
== END 2019-03-08 16:28 | disposition home health service (06) | DRG 291 ==
LOC: ED 15:30 → SUATTDRO 20:53 → 3S 20:53 → 3N 03-04 13:04
PROVIDERS: ATTEND Internal Medicine
CPT/HCPCS: 36569; 49083; 71010; 71020; 71045; 71046; 71250; 76700; 76870; 80048; 80053; 80162; 81001; 82550; 82948; 83735; 83880; 84145; 84439; 84443; 84481; 84484; 85025; 85027; 85610; 85730; 87088; 93005; 93010; 94003; 94640; 94660; 94760; 94761; 94762; 96374; 96375; 97110; 97116; 97162; 97530; 99285; A9270; J0692; J1250; J1815; J1940; J2248; J2270; J2405; J7050; XXXXX